=== PATIENT | female | born 1950 | race Caucasian/White ===

== ENCOUNTER 2017-02-17 17:27 | Emergency (ER) | payer MEDICARE, MEDICAID, SELFPAY ==
[2017-02-17 17:54] VITALS: BP 118/79; PULSE 77; RESP 16; TEMP 36.6; O2SAT 98; BMI 26.6
--- NOTE | 2017-02-17 18:01 | XR_ITS ---
XR wrist RT min 3V INDICATION: Pain following injury. FINDINGS: There is comminuted fracture involving the distal radius 1 cm proximal to the epiphyseal plate with mild impaction and dorsal angulation of the distal fracture fragment and minimal dorsal displacement of the distal fracture fragment x 3 mm. There is a longitudinal component of the fracture at the radial ulnar joint. There is an ulnar styloid process avulsion. IMPRESSION: Colles' fracture of the right wrist
--- NOTE | 2017-02-17 18:01 | XR_ITS ---
XR hand RT min 3V HISTORY: Pain following injury ITS.REASON: FELL INJURED RT HAND AND WRIST ORDERING PHYSICIAN: Ileana Carballo MD PATIENT AGE: 66 years COMPARISON: None FINDINGS: Colles' fracture of the wrist noted comminuted in nature. No hand fracture is evident. The distal phalanx of the third finger is missing. The distal phalanx of the fourth finger is very small and is fused at the DIP of the middle phalanx. IMPRESSION: 1. Colles' fracture of the wrist 2. No acute finding of the hand
--- NOTE | 2017-02-17 20:29 | HMH.EDGENADL ---
ED Disposition Clinical Impression: Wrist fracture, right Qualifiers: Encounter type: initial encounter Fracture type: closed Qualified Code(s): S62.101A - Fracture of unspecified carpal bone, right wrist, initial encounter for closed fracture Disposition: Home, Self-Care Condition on Discharge: Good Instructions: DI for Wrist Fracture Referrals: Wicho De La Cruz MD [Primary Care Provider] - - Critical Care Critical Care Time: No Attestation: On 02/17/17, the high probability of a clinically significant, sudden or life threatening deterioration of the following system(s) required my full and direct attention, intervention and personal management. The time I documented below is in addition to time spent performing reported procedures but includes the following listed in this critical care notation. Medical Decision Making Vital Signs: 02/17/17 17:54 Temperature 97.9 F Temperature Source Oral Pulse Rate [Left Brachial] 77 Respiratory Rate 16 Blood Pressure [Left Arm] 118/79 Blood Pressure Mean [Left Arm] 92 Blood Pressure Source [Left Arm] Automatic Cuff Blood Pressure Position [Left Arm] Sitting 02 Sat by Pulse Oximetry 98 Oxygen Delivery Method Room Air Orders (Tests/Meds): ED MEDICATIONS Discontinued Medications Generic Name Dose Route Start Last Admin Trade Name Freq PRN Reason Stop Dose Admin Ibuprofen 600 mg 02/17/17 18:31 Motrin 600mg Tablet PO 02/17/17 18:32 ONCE ONE Ibuprofen 800 mg 02/17/17 18:53 02/17/17 18:55 Motrin 400mg Tablet PO 02/17/17 18:54 800 mg ONCE ONE Administration ORDERS Category Date Time Status Wrist XR right minimum 3 views [XR wrist RT min 3V] Exams 02/17/17 18:01 Taken Stat XR hand RT min 3V Stat Exams 02/17/17 18:01 Taken - Radiology Data #1 Image(s): Hand Image Reviewed: Yes I reviewed the patient's radiology results Preliminary Findings: No Fracture Seen #2 Image(s): Wrist Image Reviewed: Yes I reviewed the patient's radiology results positive fx - Physician Consults Physician Consulted: jesús Time: 20:40 Reason -: Pt condition - Sukhdeep Inquiry Pt receiving controlled substance: No General Adult HPI - General Chief complaint: PAIN Stated complaint: a/o 02/17/2017- right wrist fell at home Time Seen by Provider: 02/17/17 20:29 Mode of Arrival: Ambulatory Source of Information: Patient, Relative, Medical Record Limitations: No Limitations Description of Symptoms (Recalled from ER Triage Doc. by RN): C/O RT WRIST PAIN AFTER FALLING AT HOME - History of Present Illness HPI narrative: pt with trip type fall at home with injury to rt wrist with deformity and swelling Onset (ago): hour(s) Location: right, upper extremity Severity: moderate Consistency: constant - Related Data Allergies Allergy/AdvReac Type Severity Reaction Status Date / Time promethazine Allergy Unknown WHOLE BODY Unverified 02/01/17 14:48 ACHES EGGS (FOOD) Allergy Unknown NA-NAUSEA Uncoded 02/01/17 14:48 MILK (FOOD) Allergy Unknown NA-NAUSEA Uncoded 02/01/17 14:48 [facility] History I have reviewed the patient's past medical history: Yes Medical History: Denies:: Diabetes Mellitus Type 1, Diabetes Mellitus Type 2 - *Social History Smoking Status: Never smoker Alcohol Intake: never - Psychiatric History Expresses thoughts of harming self/others: None Suicide Plan Description: No Plan - Constitutional Denies fever(s) - Eyes Denies change in vision - Cardiovascular Denies chest pain - Respiratory Denies cough - Gastrointestinal Denies abdominal pain - Integumentary/Breasts Denies rash - Neurologic Denies seizure-like activity Physical Exam - General General appearance: in no apparent distress - Head Head exam: atraumatic - Eye Eye exam: Present: PERRL, EOMI - ENT ENT exam: Present: mucous membranes dry - Neck Neck exam: Present: normal inspection, full ROM -
--- NOTE | 2017-02-17 20:36 | ED_ITS ---
ED Disposition Clinical Impression: Wrist fracture, right Qualifiers: Encounter type: initial encounter Fracture type: closed Qualified Code(s): S62.101A - Fracture of unspecified carpal bone, right wrist, initial encounter for closed fracture Disposition: Home, Self-Care Condition on Discharge: Good Instructions: DI for Wrist Fracture Referrals: Wicho De La Cruz MD [Primary Care Provider] - - Critical Care Critical Care Time: No Attestation: On 02/17/17, the high probability of a clinically significant, sudden or life threatening deterioration of the following system(s) required my full and direct attention, intervention and personal management. The time I documented below is in addition to time spent performing reported procedures but includes the following listed in this critical care notation. Medical Decision Making Vital Signs: 02/17/17 17:54 Temperature 97.9 F Temperature Source Oral Pulse Rate [Left Brachial] 77 Respiratory Rate 16 Blood Pressure [Left Arm] 118/79 Blood Pressure Mean [Left Arm] 92 Blood Pressure Source [Left Arm] Automatic Cuff Blood Pressure Position [Left Arm] Sitting 02 Sat by Pulse Oximetry 98 Oxygen Delivery Method Room Air Orders (Tests/Meds): ED MEDICATIONS Discontinued Medications Generic Name Dose Route Start Last Admin Trade Name Freq PRN Reason Stop Dose Admin Ibuprofen 600 mg 02/17/17 18:31 Motrin 600mg Tablet PO 02/17/17 18:32 ONCE ONE Ibuprofen 800 mg 02/17/17 18:53 02/17/17 18:55 Motrin 400mg Tablet PO 02/17/17 18:54 800 mg ONCE ONE Administration ORDERS Category Date Time Status Wrist XR right minimum 3 views [XR wrist RT min 3V] Exams 02/17/17 18:01 Taken Stat XR hand RT min 3V Stat Exams 02/17/17 18:01 Taken - Radiology Data #1 Image(s): Hand Image Reviewed: Yes I reviewed the patient's radiology results Preliminary Findings: No Fracture Seen #2 Image(s): Wrist Image Reviewed: Yes I reviewed the patient's radiology results positive fx - Physician Consults Physician Consulted: jesús Time: 20:40 Reason -: Pt condition - Sukhdeep Inquiry Pt receiving controlled substance: No General Adult HPI - General Chief complaint: PAIN Stated complaint: a/o 02/17/2017- right wrist fell at home Time Seen by Provider: 02/17/17 20:29 Mode of Arrival: Ambulatory Source of Information: Patient, Relative, Medical Record Limitations: No Limitations Description of Symptoms (Recalled from ER Triage Doc. by RN): C/O RT WRIST PAIN AFTER FALLING AT HOME - History of Present Illness HPI narrative: pt with trip type fall at home with injury to rt wrist with deformity and swelling Onset (ago): hour(s) Location: right, upper extremity Severity: moderate Consistency: constant - Related Data Allergies Allergy/AdvReac Type Severity Reaction Status Date / Time promethazine Allergy Unknown WHOLE BODY Unverified 02/01/17 14:48 ACHES EGGS (FOOD) Allergy Unknown NA-NAUSEA Uncoded 02/01/17 14:48 MILK (FOOD) Allergy Unknown NA-NAUSEA Uncoded 02/01/17 14:48 [facility] History I have reviewed the patient's past medical history: Yes Medical History: Denies:: Diabet
[2017-02-17 21:52] VITALS: BP 148/72; PULSE 74; RESP 14; O2SAT 98
== END 2017-02-17 21:30 | disposition home or self-care (01) ==
PROVIDERS: Emergency Provider Emergency Medicine; Family Provider Family Medicine; PCP Family Medicine
DX: S62.101A Fracture of unspecified carpal bone, right wrist, initial encounter for closed fracture (principal); W01.0XXA Fall on same level from slipping, tripping and stumbling without subsequent striking against object, initial encounter; Y92.019 Unspecified place in single-family (private) house as the place of occurrence of the external cause
CPT/HCPCS: 73110; 73130; 99282

== ENCOUNTER → 2017-02-18 12:29 | Outpatient (CLI) | payer MEDICARE, MEDICAID, SELFPAY ==
[2017-02-18 12:52] LABS: Basophils % 0.2 % (0.1-2.0); Eosinophils # 0.1 K/mm3 (0.0-0.4); Eosinophils % 0.9 % (0.1-12.0); Hematocrit 44.9 % (37.0-47.0); Lymphocytes # 1.5 K/mm3 (0.7-4.5); Lymphocytes % 18.1 K/mm3 (10-50); Mean Corpuscular HGB Conc 31.2 g/dL (31.8-35.4); Mean Corpuscular Hemoglobin 27.5 pg (27.0-31.2); Mean Corpuscular Volume 88.1 fl (81-99); Mean Platelet Volume 8.4 fl (7.4-10.4); Monocytes # 0.4 K/mm3 (0.1-1.0); Monocytes % 5.1 % (1.7-9.3); Neutrophils # 6.4 K/mm3 (1.8-7.8); Neutrophils % 75.6 % (37.0-80.0); Platelet Count 219 K/mm3 (142-424); White Blood Count 8.4 K/mm3 (4.8-10.8)
[2017-02-18 13:53] LABS: Anion Gap 13.2 mEq/L (5-15); Blood Urea Nitrogen 19 mg/dL (7-18); Carbon Dioxide 28 mmol/L (21.0-32.0); Chloride 103 mmol/L (98-107); Creatinine,Serum 0.85 mg/dL (0.55-1.02); Estimated Glomerular Filt Rate > 60 ml/min (>60); GFR (African American) > 60 ML/MIN (>60); Sodium 140 mmol/L (136-145)
[2017-02-18 14:10] LABS: Glucose 111 mg/dL (74-106); Potassium 4.2 mmoL/L (3.5-5.1)
== END ==
PROVIDERS: PCP Family Medicine; Visit Provider Orthopaedic Surgery
DX: S62.101A Fracture of unspecified carpal bone, right wrist, initial encounter for closed fracture (principal); Z01.818 Encounter for other preprocedural examination
CPT/HCPCS: 36415; 80048; 85025; 93005

== ENCOUNTER 2017-02-23 09:35 | Day surgery (SDC) | payer MEDICARE, MEDICAID, SELFPAY ==
[2017-02-18 15:07] VITALS: BMI 26.6
[2017-02-23] VITALS (18 sets, daily range): BP systolic 123–149; BP diastolic 41–88; PULSE 18–103; RESP 15–21; TEMP 36.1–36.8; O2SAT 94–99; BMI 26.6
--- NOTE | 2017-02-23 | FL_ITS ---
FL fluoroscopy <1hr CLINICAL INDICATION: ITS.REASON: POST REDUCTION ORDERING PHYSICIAN: Hima Greenwood MD PATIENT AGE: 66 years COMPARISON: 02/17/2017 FINDINGS: Multiple images submitted with the C-arm show closed reduction of the distal radial fracture. Final images show good alignment with no significant displacement with placement of a cast. IMPRESSION: Status post closed reduction distal radial fracture
--- NOTE | 2017-02-23 11:43 | HMH.ANESCL ---
[facility] Anesthesia Checklist - Patient Identification Patient Identification: Arm Band, Verbal (Name & ) - Structural Data Admitted From: Home Planned Operative Procedure/s: closed reduction right radius Consent for Planned Operative Procedure(s) Verified: Yes Verified Documents: Surgical Consent - NPO Status Verified Time NPO: 00:00 - Chart Verification Results Verified: CBC, BMP - Additional verifications Patient : No Anesthesia Reactions: No Cephalosporin Allergy: No - Cardiovascular Assessment Heart Sounds: S1 & S2 Pulse Strength: Strong Pulse Rhythm: Regular Peripheral Edema: No - Airway Assessment C-Spine Mobility Assessed: Yes TMJ Mobility Assessed: Yes Dentition: Good Dentition - Neurological Assessment Level of Consciousness: Awake, Alert, Appropriate Hx Seizures: Yes (50 yrs ago) Numbness or tingling in extremities: No - Genitourinary Assessment Urinary Incontinence: None - Anesthesia Plan Anesthesia Risk discussed: Yes Anesthesia Plan: Verified ASA Class: III Anesthesia Type: General [facility] Anesthesia HX I have reviewed the patient's past medical history: Yes Medical History: Reports:: Cancer, Gastroesophageal Reflux Disease, Seizures Denies:: Diabetes Mellitus Type 1, Diabetes Mellitus Type 2 Other Surgeries: Yes: Other (Prosethetic RT leg, LT hand at . ) Amputation: Yes Fractures: Yes *Family Hx:: Cancer, Diabetes, Anemia
--- NOTE | 2017-02-23 11:46 | P.PN_ITS ---
[facility] Anesthesia Checklist - Patient Identification Patient Identification: Arm Band, Verbal (Name & ) - Structural Data Admitted From: Home Planned Operative Procedure/s: closed reduction right radius Consent for Planned Operative Procedure(s) Verified: Yes Verified Documents: Surgical Consent - NPO Status Verified Time NPO: 00:00 - Chart Verification Results Verified: CBC, BMP - Additional verifications Patient : No Anesthesia Reactions: No Cephalosporin Allergy: No - Cardiovascular Assessment Heart Sounds: S1 & S2 Pulse Strength: Strong Pulse Rhythm: Regular Peripheral Edema: No - Airway Assessment C-Spine Mobility Assessed: Yes TMJ Mobility Assessed: Yes Dentition: Good Dentition - Neurological Assessment Level of Consciousness: Awake, Alert, Appropriate Hx Seizures: Yes (50 yrs ago) Numbness or tingling in extremities: No - Genitourinary Assessment Urinary Incontinence: None - Anesthesia Plan Anesthesia Risk discussed: Yes Anesthesia Plan: Verified ASA Class: III Anesthesia Type: General [facility] Anesthesia HX I have reviewed the patient's past medical history: Yes Medical History: Reports:: Cancer, Gastroesophageal Reflux Disease, Seizures Denies:: Diabetes Mellitus Type 1, Diabetes Mellitus Type 2 Other Surgeries: Yes: Other (Prosethetic RT leg, LT hand at . ) Amputation: Yes Fractures: Yes *Family Hx:: Cancer, Diabetes, Anemia
--- NOTE | 2017-02-23 12:52 | P.PN_ITS ---
[facility] Anesthesia Record Part I Intake, IV Amount: 450 Estimated blood loss (mL): 0 Urine output (mL): 0 Blood Products used (#): none Blood Pressure: 142/84 SaO2: 96 Pulse Rate: 18 Respiratory Rate: 18 Temperature: 97.0 F Patient is:: Drowsy, Nasal O2 Stable to PACU at:: 12:49
--- NOTE | 2017-02-23 12:52 | HMH.ANESII ---
[facility] Anesthesia Record Part II Discharge Time: 13:19 Destination: Surgical Day Care (OP Surgery) PACU nurse assessment reviewed?: Yes Patient Condition:: Good Anesthesia Complications:: None
--- NOTE | 2017-02-23 13:04 | XR_ITS ---
XR wrist RT min 3V HISTORY: Follow-up closed reduction ITS.REASON: post op ORDERING PHYSICIAN: Hima Greenwood MD PATIENT AGE: 66 years COMPARISON: 02/17/2017 FINDINGS: There is been interval reduction of the distal radial fracture. There is improved alignment with decreased displacement. There is good alignment of the distal fracture fragment with no significant displacement. A cast is in place. IMPRESSION: Status post closed reduction distal radial fracture with good alignment.
--- NOTE | 2017-02-23 13:42 | HMH.OPNOTE ---
Date of procedure: 02/23/17 Pre-op Diagnosis:: Extra-articular displaced right distal radius fracture Post-op diagnosis:: same Procedure performed:: Closed reduction and splint stabilization of right distal radius fracture Surgeon:: Hima Greenwood MD PHYSICAL THERAPIST:: Ba Garcia Anesthesia: MAC Estimated blood loss (mL): 0 Operative findings:: The patient was taken into the operating room placed in supine position, and an LMA placed. After appropriate level of anesthesia had been achieved, C arm fluoroscopy was used to confirm the fracture geometry of the right distal radius. We then applied traction to the base of the thumb metacarpal and applied volarly directed force on the distal fragment to reduce fracture. We checked with C arm and performed a bit more fine tuning as necessary to achieve its anatomic reduction is possible. Once this had been achieved, we placed the patient in a well padded double sugar tong splint and applied a mold to the splint and allowed it to dry. We then checked the reduction in both the AP and lateral views and found to be satisfactory. We then transported the patient to the postanesthesia care unit in good condition. No implants were utilized. Tourniquet time (min): 0 Pathology: none sent Condition: stable Disposition: PACU Complications:: No complications
--- NOTE | 2017-02-23 13:46 | P.OP_ITS ---
Date of procedure: 02/23/17 Pre-op Diagnosis:: Extra-articular displaced right distal radius fracture Post-op diagnosis:: same Procedure performed:: Closed reduction and splint stabilization of right distal radius fracture Surgeon:: Hima Greenwood MD CHANNEL ACCOUNT MANAGER:: Ba Garcia Anesthesia: MAC Estimated blood loss (mL): 0 Operative findings:: The patient was taken into the operating room placed in supine position, and an LMA placed. After appropriate level of anesthesia had been achieved, C arm fluoroscopy was used to confirm the fracture geometry of the right distal radius. We then applied traction to the base of the thumb metacarpal and applied volarly directed force on the distal fragment to reduce fracture. We checked with C arm and performed a bit more fine tuning as necessary to achieve its anatomic reduction is possible. Once this had been achieved, we placed the patient in a well padded double sugar tong splint and applied a mold to the splint and allowed it to dry. We then checked the reduction in both the AP and lateral views and found to be satisfactory. We then transported the patient to the postanesthesia care unit in good condition. No implants were utilized. Tourniquet time (min): 0 Pathology: none sent Condition: stable Disposition: PACU Complications:: No complications
--- NOTE | 2017-02-23 18:11 | SUR.PHASEI ---
PT RECEIVED MORPHINE MIXED IN NS THE ONLY VIALS WE HAD WERE 10 MG/ML. WHEN MIXED WITH NS 10 ML, THEY BECAME 1MG/1ML.
== END 2017-02-23 16:43 | disposition home or self-care (01) ==
PROVIDERS: Family Provider Family Medicine; PCP Family Medicine; Visit Provider Orthopaedic Surgery
DX: S62.101A Fracture of unspecified carpal bone, right wrist, initial encounter for closed fracture (principal)
CPT/HCPCS: 25606; 73100; 73110; 76000; J2405

== ENCOUNTER → 2017-03-04 08:42 | Outpatient (CLI) | payer MEDICARE, MEDICAID, SELFPAY ==
--- NOTE | 2017-03-04 08:46 | XR_ITS ---
XR wrist RT 2V HISTORY: ITS.REASON: post op closed reduction RT wrist ORDERING PHYSICIAN: Hima Greenwood MD PATIENT AGE: 66 years COMPARISON: 02/23/2017 FINDINGS: Study is obtained through a cast. Nondisplaced fracture of the distal radius once again noted in good alignment with her overall no significant change compared to the previous exam. Bony details obscured by the overlying cast. IMPRESSION: No change nondisplaced fracture distal radius with good alignment status post prior closed reduction
== END ==
PROVIDERS: PCP Family Medicine; Visit Provider Orthopaedic Surgery
DX: Z48.89 Encounter for other specified surgical aftercare (principal)
CPT/HCPCS: 73100

== ENCOUNTER → 2017-03-09 08:56 | Outpatient (CLI) | payer MEDICARE, MEDICAID, SELFPAY ==
--- NOTE | 2017-03-09 09:00 | XR_ITS ---
XR wrist RT 2V HISTORY: Follow-up fracture/closed reduction ITS.REASON: status post closed reduction RIGHT wrist ORDERING PHYSICIAN: Hima Greenwood MD PATIENT AGE: 66 years COMPARISON: 03/04/2017 FINDINGS: Study is obtained in a cast. Nondisplaced transverse fractures of the distal radius and ulna once again noted with developing callus formation. There is good alignment with no significant displacement. IMPRESSION: Healing distal radial and ulnar fractures nondisplaced
== END ==
PROVIDERS: PCP Family Medicine; Visit Provider Orthopaedic Surgery
DX: Z48.89 Encounter for other specified surgical aftercare (principal); S62.101D Fracture of unspecified carpal bone, right wrist, subsequent encounter for fracture with routine healing
CPT/HCPCS: 73100

== ENCOUNTER → 2017-04-05 13:30 | Outpatient (CLI) | payer MEDICARE, MEDICAID, SELFPAY ==
--- NOTE | 2017-04-05 13:33 | XR_ITS ---
XR wrist RT min 3V HISTORY: Follow-up fracture ITS.REASON: RT distal radius fracture ORDERING PHYSICIAN: Hima Greenwood MD PATIENT AGE: 66 years COMPARISON: 03/09/2017 FINDINGS: The cast has been removed. There is a healing transverse fracture involving the distal aspect of the radius at the metaphyseal region 9 mm proximal to the epiphyseal plate. There is developing sclerosis at fracture site consistent with healing. This fracture is nondisplaced with minimal dorsal angulation of the distal fracture fragment. There is an avulsion fracture of the tip of the ulnar styloid. IMPRESSION: Healing distal radial fracture with good alignment. No change avulsion fracture of the ulnar styloid
== END ==
PROVIDERS: PCP Family Medicine; Visit Provider Orthopaedic Surgery
DX: S62.101A Fracture of unspecified carpal bone, right wrist, initial encounter for closed fracture (principal)
CPT/HCPCS: 73110

== ENCOUNTER → 2017-05-03 09:11 | Outpatient (CLI) | payer MEDICARE, MEDICAID, SELFPAY ==
--- NOTE | 2017-05-03 09:22 | XR_ITS ---
XR wrist RT min 3V HISTORY: Follow-up fracture ITS.REASON: s/p RT distal radius fx ORDERING PHYSICIAN: Hima Greenwood MD PATIENT AGE: 66 years COMPARISON: 04/05/2017 FINDINGS: There is a healing fracture involving the distal aspect of the radius transverse in nature. A fracture line is less prominent in callus formation is noted. There is good alignment and no significant displacement. Ulnar styloid avulsion once again noted. IMPRESSION: Healing nondisplaced distal radial fracture
== END ==
PROVIDERS: PCP Family Medicine; Visit Provider Orthopaedic Surgery
DX: S62.101P Fracture of unspecified carpal bone, right wrist, subsequent encounter for fracture with malunion (principal)
CPT/HCPCS: 73110

== ENCOUNTER → 2017-06-13 10:14 | Outpatient (CLI) | payer MEDICARE, MEDICAID, SELFPAY ==
--- NOTE | 2017-06-13 10:28 | XR_ITS ---
XR shoulder RT min 2V Ordering Physician: Wicho De La Cruz MD Patient Age: 66 years: Female HISTORY: ITS.REASON: RT SHOULDER PAIN TECHNIQUE: 3 views right shoulder COMPARISON : Whole-body bone scan 2016 FINDINGS Right shoulder intact with no fracture nor dislocation. Mild AC joint hypertrophy and arthropathy long downward sloping acromion which could give breast impingement symptoms if present. Calcified rim right breast implant IMPRESSION: No fracture nor dislocation. Long Mild degenerative changes AC joint and likely glenohumeral joint. Downward sloping acromion gives rise to impingement symptoms
== END ==
PROVIDERS: PCP Family Medicine; Visit Provider Family Medicine
DX: M25.511 Pain in right shoulder (principal)
CPT/HCPCS: 73030

== ENCOUNTER → 2017-06-22 12:34 | Outpatient (POV) | payer MEDICARE, SELFPAY | PROVIDERS: Family Provider Family Medicine; PCP Family Medicine | DX: Z00.00 Encounter for general adult medical examination without abnormal findings (principal) ==

== ENCOUNTER → 2017-10-20 08:40 | Outpatient (POV) | payer MEDICARE, SELFPAY | PROVIDERS: Family Provider Family Medicine; PCP Family Medicine; Visit Provider Dermatology | DX: Z00.00 Encounter for general adult medical examination without abnormal findings (principal) ==

== ENCOUNTER → 2017-12-08 13:58 | Observation (INO) ==
--- NOTE | 2017-12-05 09:43 | History & Physical Report ---
*Admission Date: 12/05/17 <Angela Banuelos 12/05/17 09:50> *Chief complaint: Nausea and vomiting <Angela Banuelos 12/05/17 09:50> *History of present illness: Ms. Fields is a 67-year-old female with a history of congenital limb deformities, esophageal cancer, esophageal reflux, constipation, anemia, and vitamin D deficiency who presented to the office of [facility] today with intractable nausea and vomiting. She states the symptoms began on 12/02/2017 after eating fish and beans at a deli in a local grocery store. After eating these foods at noon she immediately began to vomit. The vomiting persisted and thus she presented to the office of [facility] on 12/03/2017. White blood cell count was elevated and she was started on Bactrim and Zofran. Symptoms persisted and she was unable to retain any medication. She again presented to the office of [facility] with extreme nausea, abdominal pain and continued vomiting. She was then admitted for further observation and treatment. Patient also complained of having headaches, backache, fever, and some post nasal drainage. She states her bowels have not moved in a couple of days. She denies hematochezia, hematemesis and melena. She has also experienced some midsternal chest discomfort and chest congestion. <Angela Banuelos 12/05/17 11:57> [facility] History Medical History: Reports:: Cancer, Gastroesophageal Reflux Disease(GERD), Seizures Denies:: Diabetes Mellitus Type 1, Diabetes Mellitus Type 2, Internal Pacemaker <Angela Banuelos 12/05/17 09:50> Other Medical History: Reports: Anemia. Denies: Blood Transfusion Reaction <Angela Banuelos 12/05/17 09:50> Comment: Congenital limb deformities <Angela Banuelos 12/05/17 09:50> Laterality Cases: Left: Other <Angela Banuelos 12/05/17 09:50> Other Surgeries: Yes: Cholecystectomy, Other (Prosethetic RT leg, LT hand at . ). No: Pacemaker <Angela Banuelos 12/05/17 09:50> Amputation: Yes <Angela Banuelos 12/05/17 09:50> Fractures: Yes <Angela Banuelos 12/05/17 09:50> - *Social History Smoking Status: Never smoker <Angela Banuelos Issac 12/05/17 09:50> Alcohol Intake: never <Angela Banuelos Issac 12/05/17 09:50> Occupational Status: retired <Angela Banuelos Issac 12/05/17 09:50> Housing: apartment <Angela Banuelos 12/05/17 09:50> Household Members: none <LakishaAngela - 12/05/17 09:50> *Family Hx:: Cancer, Diabetes, Anemia <Banuelos,Angela Issac 12/05/17 09:50> Review of Systems - Constitutional Comments: Appears not to feel well <Angela Banuelos 12/05/17 09:50> - ENT Comments: Dry tongue <Angela Banuelos 12/05/17 09:50> - *Cardiovascular Comments: Midsternal chest tenderness and discomfort <LakishaAngela - 12/05/17 09:50> - *Respiratory Denies cough, Denies shortness of breath <Angela Banuelos 12/05/17 09:50> - *Gastrointestinal Reports abdominal pain, Reports nausea, Reports vomiting, Denies change in bowel habits, Denies vomiting blood, Denies bright, red blood in stools <Angela Banuelos 12/05/17 09:50> - *Genitourinary Comments: Decreased urinary output <Banuelos,Angela - 12/05/17 09:50> Meds Home Medications Medication Instructions Recorded Confirmed Type celecoxib 200 mg capsule 200 mg PO DAILY 02/18/17 12/05/17 History duloxetine 30 mg capsule,delayed 30 mg PO DAILY 02/18/17 12/05/17 History release metoclopramide 10 mg tablet 10 mg PO QID 02/18/17 12/05/17 History kvfzazgj-gnjpyae-koqr-lutein tablet 1 mcg PO DAILY 02/18/17 12/05/17 History nystatin 100,000 unit/gram topical 1 applic TOPICAL BID 02/18/17 12/05/17 History cream omeprazole 40 mg capsule,delayed 40 mg PO DAILY 02/18/17 12/05/17 History release psyllium husk 3.4 gram/5.4 gram 1 tbsp PO DAILY 02/18/17 12/05/17 History oral powder sumatriptan 100 mg tablet 100 mg PO NEEDED PRN 02/18/17 12/05/17 History tizanidine 2 mg capsule 2 mg PO QID 02/18/17 12/05/17 History Loratadine [Claritin] 10 mg PO DAILY 12/05/17 12/05/17 History Ondansetron HCl [Ondansetron 4mg 4 mg PO Q8HP PRN 12/05/17 12/05/17 History Tablet] Polyethylene Glycol 3350 [Miralax 34 gm PO DAILY 12/05/17 12/05/17 History 17gm Packet] Sulfamethoxazole/Trimethoprim 1 tab PO BID 12/05/17 12/05/17 History [Sulfamethoxazole-Tmp Ds Tablet] <JonoWicho - 12/05/17 18:36> Allergies Allergy/AdvReac Type Severity Reaction Status Date / Time milk Allergy Mild Vomiting Verified 05/03/17 10:11 promethazine [From Phenergan] Allergy Mild whole body Verified 05/03/17 10:11 aches eggs Allergy Intermediate Vomiting Uncoded 05/03/17 10:11 <[place] CreekVanessaWicho - 12/05/17 18:36> Exam Vital signs and Labs for Last 24 Hours: Temp Pulse Resp BP Pulse Ox 98.3 F 80 18 101/47 L 98 12/05/17 15:21 12/05/17 15:21 12/05/17 15:21 12/05/17 15:21 12/05/17 15:21 Laboratory Results - last 24 hr 12/05/17 10:25: WBC 11.0 H, RBC 4.52, Hgb 12.7, Hct 39.4, MCV 87.2, MCH 28.2, MCHC 32.4, RDW 13.7, Plt Count 215, MPV 8.2, Neut % (Auto) 86.0 H, Lymph % (Auto) 10.2, [place] % (Auto) 3.5, Eos % (Auto) 0.1, Baso % (Auto) 0.2, Neut # (Auto) 9.5 H, Lymph # (Auto) 1.1, [place] # (Auto) 0.4, Eos # (Auto) 0.0, Baso # (Auto) 0.0, Total Counted 100, Neutrophils % (Manual) 95 H, Lymphocytes % (Manual) 4 L, Monocytes % (Manual) 1 L, Platelet Estimate Normal, RBC Morphology Normal 12/05/17 10:25: Sodium 137, Potassium 3.9, Chloride 99, Carbon Dioxide 24, Anion Gap 17.9 H, BUN 28 H, Creatinine 1.31 H, Estimated Creat Clear 47, Estimated GFR 40 L, Est GFR ( Amer) 49 L, Glucose 185 H, Calcium 9.1, Total Bilirubin 0.4, AST 19, ALT 21, Alkaline Phosphatase 83, Total Protein 8.0, Albumin 3.5, Globulin 4.5 H, Albumin/Globulin Ratio 0.8 L, Amylase 50, Lipase 143 12/05/17 13:04: Urine Color Yellow, Urine Appearance Clear, Urine pH 7.5, Ur Specific [place] 1.025, Urine Protein Trace, Urine Glucose (UA) Negative, Urine Ketones 3+, Urine Blood 2+, Urine Nitrate Negative, Urine Bilirubin Negative, Urine Urobilinogen 0.2, Ur Leukocyte Esterase Negative, Urine RBC 20-50, Urine WBC Occasional, Ur Squamous Epith Cells 3-5, Urine Bacteria Trace <Wicho De La Cruz - 12/05/17 18:36> I & O for Last 24 hours: Intake & Output 12/03/17 12/04/17 12/05/17 12/06/17 11:59 11:59 11:59 11:59 Intake Total 1887 / 1887 Output Total 500 / 500 Balance 1387 / 1387 Weight 157 lb 5 oz 157 lb 5 oz <Wicho De La Cruz 12/05/17 18:36> - Constitutional no acute distress <Angela Banuelos 12/05/17 09:50> Comments: Appears not to feel well <Angela Baunelos 12/05/17 09:50> - *Routine HEENT Exam Head: Present: normocephalic, atraumatic <Angela Banuelos 12/05/17 09:50> Eye: Present: PERRL. Absent: conjunctival icterus, scleral injection <Angela Banuelos 12/05/17 09:50> ENT: Present: mucous membranes dry <Angela Banuelos 12/05/17 09:50> - *Routine Neck Exam Absent: carotid bruit, lymphadenopathy, thyromegaly <Angela Banuelos 12/05/17 09:50> - *Routine Respiratory Exam Present: CTA bilaterally (Anteriorly and posteriorly) <Agnela Banuelos 12/05/17 09:50> - *Routine Cardiovascular Exam Present: RRR <Angela Banuelos 12/05/17 09:50> - *Routine Abdominal Exam Present: normoactive bowel sounds, tenderness, distended <Angela Banuelos 12/05/17 09:50> Comments: Diffusely tender <Angela Banuelos 12/05/17 09:50> - *Routine Extremities Exam Absent: edema <Angela Banuelos 12/05/17 09:50> Comments: Right leg prosthesis. No edema in left leg <Angela Banuelos 12/05/17 09:50> - *Routine Neurological Exam Present: alert, oriented X3 <Angela Banuelos 12/05/17 09:50> Assessment and Plan (1) Nausea and vomiting Current visit: Yes Status: Acute Category: Medical Code(s): R11.2 - Nausea with vomiting, unspecified (2) Abdominal pain Current visit: Yes Status: Acute Category: Medical Code(s): R10.9 - Unspecified abdominal pain (3) Renal insufficiency Current visit: Yes Status: Acute Category: Medical Code(s): N28.9 - Disorder of kidney and ureter, unspecified (4) GERD (gastroesophageal reflux disease) Current visit: Yes Status: Acute Category: Medical Code(s): K21.9 - Gastro-esophageal reflux disease without esophagitis (5) History of esophageal cancer Current visit: Yes Status: Chronic Category: Medical Code(s): Z85.01 - Personal history of malignant neoplasm of esophagus <Wicho De La Cruz - 12/05/17 18:36> (1) Nausea and vomiting Current visit: Yes Status: Acute Category: Medical Code(s): R11.2 - Nausea with vomiting, unspecified (2) Abdominal pain Current visit: Yes Status: Acute Category: Medical Code(s): R10.9 - Unspecified abdominal pain (3) Renal insufficiency Current visit: Yes Status: Acute Category: Medical Code(s): N28.9 - Disorder of kidney and ureter, unspecified (4) GERD (gastroesophageal reflux disease) Current visit: Yes Status: Acute Category: Medical Code(s): K21.9 - Gastro-esophageal reflux disease without esophagitis (5) History of esophageal cancer Current visit: Yes Status: Chronic Category: Medical Code(s): Z85.01 - Personal history of malignant neoplasm of esophagus <Angela Banuelos - 12/05/17 13:34> - Assessment and plan all Dx Assessment and Plan for all problems:: Saw patient today in the office and this afternoon at [facility], agree with above note. <Wicho De La Cruz - 12/05/17 18:36> IVF; GI rest; antiemetics; monitor labs; UA; IV PPI and will hold other home meds for now <Angela Banuelos - 12/05/17 13:38>
[2017-12-05 10:37] LABS: Basophils % 0.2 % (0.1-2.0); Eosinophils % 0.1 % (0.1-12.0); Hematocrit 39.4 % (37.0-47.0); Hemoglobin 12.7 g/dL (12.2-16.2); Lymphocytes # 1.1 K/mm3 (0.7-4.5); Lymphocytes % 10.2 K/mm3 (10-50); Mean Corpuscular HGB Conc 32.4 g/dL (31.8-35.4); Mean Corpuscular Hemoglobin 28.2 pg (27.0-31.2); Mean Corpuscular Volume 87.2 fl (81-99); Mean Platelet Volume 8.2 fl (7.4-10.4); Monocytes # 0.4 K/mm3 (0.1-1.0); Monocytes % 3.5 % (1.7-9.3); Neutrophils # 9.5 K/mm3 (1.8-7.8); Platelet Count 215 K/mm3 (142-424); Red Blood Count 4.52 M/mm3 (4.20-5.40); Red Cell Distribution Width 13.7 % (11.5-17.5)
[2017-12-05 10:50] LABS: Albumin Level 3.5 gm/dL (3.4-5.0); Albumin/Globulin Ratio 0.8 (1.1-1.8); Anion Gap 17.9 mEq/L (5-15); Bilirubin,Total 0.4 mg/dL (0.2-1.0); Calcium 9.1 mg/dL (8.5-10.1); Globulin 4.5 gm/dl (1.3-3.2); Potassium 3.9 mmoL/L (3.5-5.1)
[2017-12-05 11:41] LABS: Lymphocytes % 4 % (10-50); Monocytes % 1 % (2-9); Neutrophils % 95 % (42-76); Total Cells Counted 100
[2017-12-05 11:42] LABS: RBC Morphology Normal
[2017-12-05 13:17] LABS: Microscopic, Urine URINE MICROSCOPIC (MICROSCOPIC)
--- NOTE | 2017-12-05 14:08 | Pharmacy Consult Notes ---
[facility] Pharmacy VTE Monitoring - Patient Demographics Admission date: 12/05/17 Report Date: 12/05/17 Time: 14:08 Allergies/Adverse Reactions: Patient Allergies milk Allergy (Mild, Verified 05/03/17 10:11) Vomiting promethazine [From Phenergan] Allergy (Mild, Verified 05/03/17 10:11) whole body aches eggs Allergy (Intermediate, Uncoded 05/03/17 10:11) Vomiting Height: 1.65 m Weight: 71.356 kg Patient Problems: Current Active Problems Nausea and vomiting (Acute) Abdominal pain (Acute) GERD (gastroesophageal reflux disease) (Acute) History of esophageal cancer (Chronic) Renal insufficiency (Acute) - VTE Risk Labs: VTE Related Lab Results Hgb 12.7 g/dL (12.2-16.2) 12/05/17 10:25 Hct 39.4 % (37.0-47.0) 12/05/17 10:25 Plt Count 215 K/mm3 (142-424) 12/05/17 10:25 BUN 28 mg/dL (7-18) H 12/05/17 10:25 Creatinine 1.31 mg/dL (0.55-1.02) H 12/05/17 10:25 Estimated Creat Clear 47 mL/min (0-300) 12/05/17 10:25 VTE Score: 1 VTE Risk Level: Very Low Risk - Prophylaxis VTE Prophylaxis Ordered?: Yes Types of VTE Prophylaxis: TEDS Knee High Location of Applied Device: Bilateral Lower Extremeties
[2017-12-05 14:22] LABS: Appearance,Urine CLEAR (Clear); Bilirubin,Urine Negative (Negative); Blood, Urine 2+ (Negative); Color,Urine YELLOW (Yellow); Glucose,Urine (UA) Negative (Negative); Ketones,Urine 3+ (Negative); Leukocyte Esterase,Urine Negative (Negative); PH,Urine 7.5 (5.0-8.5); Protein,Urine TRACE (Negative); Specific Gravity, Urine 1.025 (1.005-1.030); Urobilinogen,Urine 0.2 EU/dl (0.2)
[2017-12-05 15:05] LABS: Bacteria,Urine Trace /lpf; RBC,Urine 20-50 #/hpf (0-3); WBC,Urine Occasional #/hpf (0-3)
[2017-12-06 07:32] LABS: Basophils % 0.2 % (0.1-2.0); Eosinophils % 0.4 % (0.1-12.0); Hematocrit 34.7 % (37.0-47.0); Lymphocytes # 1.4 K/mm3 (0.7-4.5); Lymphocytes % 18.7 K/mm3 (10-50); Mean Corpuscular HGB Conc 32.1 g/dL (31.8-35.4); Mean Corpuscular Hemoglobin 28.1 pg (27.0-31.2); Mean Corpuscular Volume 87.6 fl (81-99); Mean Platelet Volume 7.6 fl (7.4-10.4); Monocytes # 0.4 K/mm3 (0.1-1.0); Monocytes % 5.7 % (1.7-9.3); Neutrophils # 5.4 K/mm3 (1.8-7.8); Neutrophils % 74.9 % (37.0-80.0); Platelet Count 203 K/mm3 (142-424); Red Blood Count 3.97 M/mm3 (4.20-5.40); Red Cell Distribution Width 13.5 % (11.5-17.5); White Blood Count 7.2 K/mm3 (4.8-10.8)
[2017-12-06 07:44] LABS: Hemoglobin 11.2 g/dL (12.2-16.2)
--- NOTE | 2017-12-06 08:12 | Progress Note ---
<Angela Banuelos - Last Filed: 12/06/17 08:07> Internal Medicine - PN: Subj *Date: 12/06/17 *Time: 08:08 Interval history: Patient has retained popsicles. She did vomit this a.m. She is voiding well. She is out of bed to bedside commode. She continues to have some nausea and would like some Zofran at present. She would like to try some oatmeal and toast this morning. She denies shortness of breath. She could have some his chest discomfort and would like to have a scope to rule out another tumor. Renal function has improved and white blood cell is normal this morning Exam Vital signs and Labs for Last 24 Hours: Temp Pulse Resp BP Pulse Ox 98.6 F 72 16 104/51 L 98 12/06/17 04:00 12/06/17 04:00 12/06/17 04:00 12/06/17 04:00 12/06/17 08:00 Laboratory Results - last 24 hr 12/05/17 10:25: WBC 11.0 H, RBC 4.52, Hgb 12.7, Hct 39.4, MCV 87.2, MCH 28.2, MCHC 32.4, RDW 13.7, Plt Count 215, MPV 8.2, Neut % (Auto) 86.0 H, Lymph % (Auto) 10.2, [place] % (Auto) 3.5, Eos % (Auto) 0.1, Baso % (Auto) 0.2, Neut # (Auto) 9.5 H, Lymph # (Auto) 1.1, [place] # (Auto) 0.4, Eos # (Auto) 0.0, Baso # (Auto) 0.0, Total Counted 100, Neutrophils % (Manual) 95 H, Lymphocytes % (Manual) 4 L, Monocytes % (Manual) 1 L, Platelet Estimate Normal, RBC Morphology Normal 12/05/17 10:25: Sodium 137, Potassium 3.9, Chloride 99, Carbon Dioxide 24, Anion Gap 17.9 H, BUN 28 H, Creatinine 1.31 H, Estimated Creat Clear 47, Estimated GFR 40 L, Est GFR ( Amer) 49 L, Glucose 185 H, Calcium 9.1, Total Bilirubin 0.4, AST 19, ALT 21, Alkaline Phosphatase 83, Total Protein 8.0, Albumin 3.5, Globulin 4.5 H, Albumin/Globulin Ratio 0.8 L, Amylase 50, Lipase 143 12/05/17 13:04: Urine Color Yellow, Urine Appearance Clear, Urine pH 7.5, Ur Specific [place] 1.025, Urine Protein Trace, Urine Glucose (UA) Negative, Urine Ketones 3+, Urine Blood 2+, Urine Nitrate Negative, Urine Bilirubin Negative, Urine Urobilinogen 0.2, Ur Leukocyte Esterase Negative, Urine RBC 20-50, Urine WBC Occasional, Ur Squamous Epith Cells 3-5, Urine Bacteria Trace 12/06/17 06:28: WBC 7.2 D, RBC 3.97 L, Hgb 11.2 L D, Hct 34.7 L, MCV 87.6, MCH 28.1, MCHC 32.1, RDW 13.5, Plt Count 203, MPV 7.6, Neut % (Auto) 74.9, Lymph % (Auto) 18.7, [place] % (Auto) 5.7, Eos % (Auto) 0.4, Baso % (Auto) 0.2, Neut # (Auto) 5.4, Lymph # (Auto) 1.4, [place] # (Auto) 0.4, Eos # (Auto) 0.0, Baso # (Auto) 0.0 12/06/17 06:28: BUN 15 D, Creatinine 1.07 H, Estimated Creat Clear 57, Estimated GFR 51 L, Est GFR ( Amer) 62 D, Glucose 127 H D I & O for Last 24 hours: Intake & Output 12/03/17 12/04/17 12/05/17 12/06/17 11:59 11:59 11:59 11:59 Intake Total 2127 / 2127 Output Total 1100 / 1100 Balance 1027 / 1027 Weight 157 lb 5 oz 157 lb 5 oz - Constitutional no acute distress - *Routine Respiratory Exam Present: CTA bilaterally (Anteriorly and posteriorly) - *Routine Cardiovascular Exam Present: RRR - *Routine Abdominal Exam Present: soft, normoactive bowel sounds, tenderness (Diffusely mildly tender) - *Routine Extremities Exam Absent: edema, calf tenderness - *Routine Neurological Exam Present: alert, oriented X3 Assessment and Plan (1) Nausea and vomiting Current visit: Yes Status: Acute Category: Medical Code(s): R11.2 - Nausea with vomiting, unspecified (2) Abdominal pain Current visit: Yes Status: Acute Category: Medical Code(s): R10.9 - Unspecified abdominal pain (3) Renal insufficiency Current visit: Yes Status: Acute Category: Medical Code(s): N28.9 - Disorder of kidney and ureter, unspecified (4) GERD (gastroesophageal reflux disease) Current visit: Yes Status: Acute Category: Medical Code(s): K21.9 - Gastro-esophageal reflux disease without esophagitis (5) History of esophageal cancer Current visit: Yes Status: Chronic Category: Medical Code(s): Z85.01 - Personal history of malignant neoplasm of esophagus - Assessment and plan all Dx Assessment and Plan for all problems:: Continue current care and will advance diet. <Wicho De La Cruz - Last Filed: 12/06/17 08:32> Exam Vital signs and Labs for Last 24 Hours: Temp Pulse Resp BP Pulse Ox 98.6 F 72 16 104/51 L 98 12/06/17 04:00 12/06/17 04:00 12/06/17 04:00 12/06/17 04:00 12/06/17 08:00 Laboratory Results - last 24 hr 12/05/17 10:25: WBC 11.0 H, RBC 4.52, Hgb 12.7, Hct 39.4, MCV 87.2, MCH 28.2, MCHC 32.4, RDW 13.7, Plt Count 215, MPV 8.2, Neut % (Auto) 86.0 H, Lymph % (Auto) 10.2, [place] % (Auto) 3.5, Eos % (Auto) 0.1, Baso % (Auto) 0.2, Neut # (Auto) 9.5 H, Lymph # (Auto) 1.1, [place] # (Auto) 0.4, Eos # (Auto) 0.0, Baso # (Auto) 0.0, Total Counted 100, Neutrophils % (Manual) 95 H, Lymphocytes % (Manual) 4 L, Monocytes % (Manual) 1 L, Platelet Estimate Normal, RBC Morphology Normal 12/05/17 10:25: Sodium 137, Potassium 3.9, Chloride 99, Carbon Dioxide 24, Anion Gap 17.9 H, BUN 28 H, Creatinine 1.31 H, Estimated Creat Clear 47, Estimated GFR 40 L, Est GFR ( Amer) 49 L, Glucose 185 H, Calcium 9.1, Total Bilirubin 0.4, AST 19, ALT 21, Alkaline Phosphatase 83, Total Protein 8.0, Albumin 3.5, Globulin 4.5 H, Albumin/Globulin Ratio 0.8 L, Amylase 50, Lipase 143 12/05/17 13:04: Urine Color Yellow, Urine Appearance Clear, Urine pH 7.5, Ur Specific [place] 1.025, Urine Protein Trace, Urine Glucose (UA) Negative, Urine Ketones 3+, Urine Blood 2+, Urine Nitrate Negative, Urine Bilirubin Negative, Urine Urobilinogen 0.2, Ur Leukocyte Esterase Negative, Urine RBC 20-50, Urine WBC Occasional, Ur Squamous Epith Cells 3-5, Urine Bacteria Trace 12/06/17 06:28: WBC 7.2 D, RBC 3.97 L, Hgb 11.2 L D, Hct 34.7 L, MCV 87.6, MCH 28.1, MCHC 32.1, RDW 13.5, Plt Count 203, MPV 7.6, Neut % (Auto) 74.9, Lymph % (Auto) 18.7, [place] % (Auto) 5.7, Eos % (Auto) 0.4, Baso % (Auto) 0.2, Neut # (Auto) 5.4, Lymph # (Auto) 1.4, [place] # (Auto) 0.4, Eos # (Auto) 0.0, Baso # (Auto) 0.0 12/06/17 06:28: Sodium 140, Potassium 3.8, Chloride 105, Carbon Dioxide 29 D, Anion Gap 9.8, BUN 15 D, Creatinine 1.07 H, Estimated Creat Clear 57, Estimated GFR 51 L, Est GFR ( Amer) 62 D, Glucose 127 H D, Calcium 8.1 L D I & O for Last 24 hours: Intake & Output 12/03/17 12/04/17 12/05/17 12/06/17 11:59 11:59 11:59 11:59 Intake Total 2126 / 2126 Output Total 1100 / 1100 Balance 1027 / 1027 Weight 157 lb 5 oz 157 lb 5 oz Assessment and Plan (1) Nausea and vomiting Current visit: Yes Status: Acute Category: Medical Code(s): R11.2 - Nausea with vomiting, unspecified (2) Abdominal pain Current visit: Yes Status: Acute Category: Medical Code(s): R10.9 - Unspecified abdominal pain (3) Renal insufficiency Current visit: Yes Status: Acute Category: Medical Code(s): N28.9 - Disorder of kidney and ureter, unspecified (4) GERD (gastroesophageal reflux disease) Current visit: Yes Status: Acute Category: Medical Code(s): K21.9 - Gastro-esophageal reflux disease without esophagitis (5) History of esophageal cancer Current visit: Yes Status: Chronic Category: Medical Code(s): Z85.01 - Personal history of malignant neoplasm of esophagus - Assessment and plan all Dx Assessment and Plan for all problems:: Saw patient, agree with above note.
[2017-12-06 08:14] LABS: Potassium 3.8 mmoL/L (3.5-5.1)
[2017-12-06 08:16] LABS: Anion Gap 9.8 mEq/L (5-15)
[2017-12-06 08:24] LABS: Calcium 8.1 mg/dL (8.5-10.1)
--- NOTE | 2017-12-07 08:24 | Progress Note ---
<Christa Blount - Last Filed: 12/07/17 08:21> Internal Medicine - PN: Subj *Date: 12/07/17 *Time: 08:21 Interval history: Patient states she is still not feeling well this morning. She only vomited once throughout the night but is still very nauseated and continues to have diffuse abdominal pain. She has not had a bowel movement since last Tuesday, however she states she cannot tolerate any stool softeners or MiraLAX d/t her nausea and this is usually what she requires to go to the bathroom. She ate a few bites of oatmeal this morning but is unable to eat any more food or drink any liquids. Exam Vital signs and Labs for Last 24 Hours: Temp Pulse Resp BP Pulse Ox 98.2 F 76 16 127/65 95 12/07/17 08:00 12/07/17 08:00 12/07/17 08:00 12/07/17 08:00 12/07/17 08:00 Laboratory Results - last 24 hr 12/06/17 06:28: Calcium 8.1 L D I & O for Last 24 hours: Intake & Output 12/04/17 12/05/17 12/06/17 12/07/17 11:59 11:59 11:59 11:59 Intake Total 2127 / 2127 3878 / 3878 Output Total 1500 / 1500 1250 / 1250 Balance 627 / 627 2628 / 2628 Weight 157 lb 5 oz 157 lb 5 oz - Constitutional no acute distress - *Routine Respiratory Exam Present: CTA bilaterally - *Routine Cardiovascular Exam Present: RRR - *Routine Abdominal Exam Present: soft, normoactive bowel sounds, tenderness (diffuse) - *Routine Extremities Exam Absent: cyanosis, clubbing, edema Assessment and Plan (1) Nausea and vomiting Current visit: Yes Status: Acute Category: Medical Code(s): R11.2 - Nausea with vomiting, unspecified (2) Abdominal pain Current visit: Yes Status: Acute Category: Medical Code(s): R10.9 - Unspecified abdominal pain (3) Renal insufficiency Current visit: Yes Status: Acute Category: Medical Code(s): N28.9 - Disorder of kidney and ureter, unspecified (4) GERD (gastroesophageal reflux disease) Current visit: Yes Status: Acute Category: Medical Code(s): K21.9 - Ingrid ro-esophageal reflux disease without esophagitis (5) History of esophageal cancer Current visit: Yes Status: Chronic Category: Medical Code(s): Z85.01 - Personal history of malignant neoplasm of esophagus - Assessment and plan all Dx Assessment and Plan for all problems:: Will continue antibiotics and anti-medics. <Galena,Wicho - Last Filed: 12/07/17 08:59> Exam Vital signs and Labs for Last 24 Hours: Temp Pulse Resp BP Pulse Ox 98.2 F 76 16 127/65 95 12/07/17 08:00 12/07/17 08:00 12/07/17 08:00 12/07/17 08:00 12/07/17 08:00 I & O for Last 24 hours: Intake & Output 12/04/17 12/05/17 12/06/17 12/07/17 11:59 11:59 11:59 11:59 Intake Total 2127 / 2127 3878 / 3878 Output Total 1500 / 1500 1250 / 1250 Balance 627 / 627 2628 / 2628 Weight 157 lb 5 oz 157 lb 5 oz Assessment and Plan (1) Nausea and vomiting Current visit: Yes Status: Acute Category: Medical Code(s): R11.2 - Nausea with vomiting, unspecified (2) Abdominal pain Current visit: Yes Status: Acute Category: Medical Code(s): R10.9 - U nspecified abdominal pain (3) Renal insufficiency Current visit: Yes Status: Acute Category: Medical Code(s): N28.9 - Disorder of kidney and ureter, unspecified (4) GERD (gastroesophageal reflux disease) Current visit: Yes Status: Acute Category: Medical Code(s): K21.9 - Gastro-esophageal reflux disease without esophagitis (5) History of esophageal cancer Current visit: Yes Status: Chronic Category: Medical Code(s): Z85.01 - Pe rsonal history of malignant neoplasm of esophagus - Assessment and plan all Dx Assessment and Plan for all problems:: Saw patient, agree with above note.
--- NOTE | 2017-12-08 08:26 | Progress Note ---
<Christa Blount - Last Filed: 12/08/17 08:23> Internal Medicine - PN: Subj *Date: 12/08/17 *Time: 08:23 Interval history: Patient states she had a rough night. She states her IV came out and they were unable to get another IV started. She was given sublingual Zofran and this helped her nausea. She is still unable to drink except to take her medication. She has been able to eat some toast and oatmeal this morning. She has had no further vomiting and her abdominal pain is slightly improving. Exam Vital signs and Labs for Last 24 Hours: Temp Pulse Resp BP Pulse Ox 98.4 F 99 H 16 129/80 96 12/08/17 07:59 12/08/17 07:59 12/08/17 07:59 12/08/17 07:59 12/08/17 07:59 I & O for Last 24 hours: Intake & Output 12/05/17 12/06/17 12/07/17 12/08/17 11:59 11:59 11:59 11:59 Intake Total 2127 / 2127 3998 / 3998 1556 / 1556 Output Total 1500 / 1500 1550 / 1550 650 / 650 Balance 627 / 627 2448 / 2448 906 / 906 Weight 157 lb 5 oz 157 lb 5 oz 157 lb 5.009 oz - Constitutional no acute distress - *Routine Respiratory Exam Present: CTA bilaterally - *Routine Cardiovascular Exam Present: RRR - *Routine Abdominal Exam Present: soft, normoactive bowel sounds, tenderness (diffuse but improved) - *Routine Extremities Exam Absent: cyanosis, clubbing, edema Assessment and Plan (1) Nausea and vomiting Current visit: Yes Status: Acute Category: Medical Code(s): R11.2 - Nausea with vomiting, unspecified (2) Abdominal pain Current visit: Yes Status: Acute Category: Medical Code(s): R10.9 - Unspecified abdominal pain (3) Renal insufficiency Current visit: Yes Status: Acute Category: Medical Code(s): N28.9 - Disorder of kidney and ureter, unspecified (4) GERD (gastroesophageal reflux disease) Current visit: Yes Status: Acute Category: Medical Code(s): K21.9 - Gastro-esophageal reflux disease without esophagitis (5) History of esophageal cancer Current visit: Yes Status: Chronic Category: Medical Code(s): Z85.01 - Personal history of malignant neoplasm of esophagus - Assessment and plan all Dx Assessment and Plan for all problems:: Dr. Rangel ordered a deep line placement during the night, however the patient wants to wait and see Dr. De La Cruz before having this placed. She states he mentioned she may go home and if she goes home, she does not want this line placed. Will continue oral Zofran and discuss further care with Dr. De La Cruz. <Wicho De La Cruz - Last Filed: 12/08/17 08:48> Exam Vital signs and Labs for Last 24 Hours: Temp Pulse Resp BP Pulse Ox 98.4 F 99 H 16 129/80 96 12/08/17 07:59 12/08/17 07:59 12/08/17 07:59 12/08/17 07:59 12/08/17 07:59 I & O for Last 24 hours: Intake & Output 12/05/17 12/06/17 12/07/17 12/08/17 11:59 11:59 11:59 11:59 Intake Total 2127 / 2127 3998 / 3998 1556 / 1556 Output Total 1500 / 1500 1550 / 1550 650 / 650 Balance 627 / 627 2448 / 2448 906 / 906 Weight 157 lb 5 oz 157 lb 5 oz 157 lb 5.009 oz Assessment and Plan (1) Nausea and vomiting Current visit: Yes Status: Acute Category: Medical Code(s): R11.2 - Nausea with vomiting, unspecified (2) Abdominal pain Current visit: Yes Status: Acute Category: Medical Code(s): R10.9 - Unspecified abdominal pain (3) Renal insufficiency Current visit: Yes Status: Acute Category: Medical Code(s): N28.9 - Disorder of kidney and ureter, unspecified (4) GERD (gastroesophageal reflux disease) Current visit: Yes Status: Acute Category: Medical Code(s): K21.9 - Gastro-esophageal reflux disease without esophagitis (5) History of esophageal cancer Current visit: Yes Status: Chronic Category: Medical Code(s): Z85.01 - Personal history of malignant neoplasm of esophagus - Assessment and plan all Dx Assessment and Plan for all problems:: Saw patient, she will probably be discharged later today, will not place IV at this time.
--- NOTE | 2017-12-09 16:42 | Discharge Summary ---
General - General Admission date:: 12/05/17 Discharge date: 12/08/17 HPI HPI: Ms. Fields is a 67-year-old female with a history of congenital limb deformities, esophageal cancer, esophageal reflux, constipation, anemia, and vitamin D deficiency who presented to the office of [facility] today with intractable nausea and vomiting. She states the symptoms began on 12/02/2017 after eating fish and beans at a deli in a local grocery store. After eating these foods at noon she immediately began to vomit. The vomiting persisted and thus she presented to the office of [facility] on 12/03/2017. White blood cell count was elevated and she was started on Bactrim and Zofran. Symptoms persisted and she was unable to retain any medication. She again presented to the office of [facility] with extreme nausea, abdominal pain and continued vomiting. She was then admitted for further observation and treatment. Patient also complained of having headaches, backache, fever, and some post nasal drainage. She states her bowels have not moved in a couple of days. She denies hematochezia, hematemesis and melena. She has also experienced some midsternal chest discomfort and chest congestion. Hospital Course Hospital Course: The patient was started on IVF, GI rest, rocephin, and antiemetics. She was also started on a PPI. Her renal function improved and her white blood cell count normalized. Her vomiting resolved but she remained nauseated. She was able to eat a few bites of toast and oatmeal and could take sips of water. She was stable to be discharged home on ceftin and zofran. She will f/u in the office of [facility]. Objective Vital signs: Temp Pulse Resp BP Pulse Ox 98.4 F 99 H 16 129/80 97 12/08/17 07:59 12/08/17 07:59 12/08/17 07:59 12/08/17 07:59 12/08/17 08:00 Narrative: - Constitutional no acute distress Comments: Appears not to feel well - *Routine HEENT Exam Head: Present: normocephalic, atraumatic Eye: Present: PERRL. Absent: conjunctival icterus, scleral injection ENT: Present: mucous membranes dry - *Routine Neck Exam Absent: carotid bruit, lymphadenopathy, thyromegaly - *Routine Respiratory Exam Present: CTA bilaterally (Anteriorly and posteriorly) - *Routine Cardiovascular Exam Present: RRR - *Routine Abdominal Exam Present: normoactive bowel sounds, tenderness, distended Comments: Diffusely tender - *Routine Extremities Exam Absent: edema Comments: Right leg prosthesis. No edema in left leg - *Routine Neurological Exam Present: alert, oriented X3 DS: Diagnosis - Discharge Diagnosis (1) Nausea and vomiting Status: Acute (2) Abdominal pain Status: Acute (3) Renal insufficiency Status: Acute (4) GERD (gastroesophageal reflux disease) Status: Acute (5) History of esophageal cancer Status: Chronic Discharge Plan - Patient Discharge Instructions ACTIVITY: Continue current activity DIET: continue same diet Patient Instructions: DI for Abdominal Pain-Adult, Nausea and Vomiting-Adult - Follow up Plan Follow up with: Wicho De La Cruz MD [Primary Care Provider] - 12/12/17 Disposition: Home, Self-Custodial Medications: Home Medications Medication Instructions Recorded Confirmed Type celecoxib 200 mg capsule 200 mg PO DAILY 02/18/17 12/05/17 History duloxetine 30 mg capsule,delayed 30 mg PO DAILY 02/18/17 12/05/17 History release metoclopramide 10 mg tablet 10 mg PO QID 02/18/17 12/05/17 History kszzmiwy-lomzbmb-fjyq-lutein tablet 1 mcg PO DAILY 02/18/17 12/05/17 History nystatin 100,000 unit/gram topical 1 applic TOPICAL BID 02/18/17 12/05/17 History cream omeprazole 40 mg capsule,delayed 40 mg PO DAILY 02/18/17 12/05/17 History release psyllium husk 3.4 gram/5.4 gram 1 tbsp PO DAILY 02/18/17 12/05/17 History oral powder sumatriptan 100 mg tablet 100 mg PO NEEDED PRN 02/18/17 12/05/17 History tizanidine 2 mg capsule 2 mg PO QID 02/18/17 12/05/17 History Loratadine [Claritin] 10 mg PO DAILY 12/05/17 12/05/17 History Polyethylene Glycol 3350 [Miralax 34 gm PO DAILY 12/05/17 12/05/17 History 17gm Packet] Prescriptions/Medication Reconciliation: New cefUROXime axetil [Ceftin 250mg Tablet] 250 mg PO BID #14 tablet Ondansetron [Zofran 8mg ODT] 8 mg PO TIDP PRN #20 tab PRN Reason: Nausea And Vomiting Continue celecoxib 200 mg capsule 200 mg PO DAILY nystatin 100,000 unit/gram topical cream 1 applic TOPICAL BID bkigkite-syohjnt-pian-lutein tablet 1 mcg PO DAILY psyllium husk 3.4 gram/5.4 gram oral powder 1 tbsp PO DAILY sumatriptan 100 mg tablet 100 mg PO NEEDED PRN PRN Reason: MIGRAINES tizanidine 2 mg capsule 2 mg PO QID duloxetine 30 mg capsule,delayed release 30 mg PO DAILY metoclopramide 10 mg tablet 10 mg PO QID omeprazole 40 mg capsule,delayed release 40 mg PO DAILY Polyethylene Glycol 3350 [Miralax 17gm Packet] 34 gm PO DAILY Loratadine [Claritin] 10 mg PO DAILY Discontinued Ondansetron HCl [Ondansetron 4mg Tablet] 4 mg PO Q8HP PRN PRN Reason: NAUSEA/VOMITING Sulfamethoxazole/Trimethoprim [Sulfamethoxazole-Tmp Ds Tablet] 1 tab PO BID
== END | disposition home or self-care (01) ==
LOC: 2ND
PROVIDERS: ADMIT Family Medicine; ATTEND Family Medicine
CPT/HCPCS: 36415; 80048; 80053; 81001; 82150; 83690; 85007; 85025; G0378; J2405

== ENCOUNTER 2017-12-12 09:50 | Outpatient (CLI) | payer MEDICARE, MEDICAID, SELFPAY ==
--- NOTE | 2017-12-12 10:48 | XR_ITS ---
XR abdomen min 2V Ordering Physician: Wicho De La Cruz MD Patient Age: 67 years: Female HISTORY: ITS.REASON: ABD PAIN TECHNIQUE: Flat and upright views abdomen COMPARISON : FINDINGS No acute findings abdomen. No free air beneath the diaphragm. Nonspecific bowel gas pattern Densely calcified rim of right breast implant noted, accounts for the 10 cm diameter area project over the right hemidiaphragm. This was seen previous CT chest daily 2016. Clips at the diaphragmatic hiatus region previous procedure here. There is no bowel dilatation or obstruction. Minimal stool is seen throughout the colon. No organomegaly. Phleboliths at the pelvic basin. Bilateral tubal ligation clips. Renal calculi evident. Lung bases clear. IMPRESSION No acute findings in the abdomen or pelvis. Nonspecific bowel gas pattern. Incidental observations in text
[2017-12-12 10:49] LABS: Basophils % 0.2 % (0.1-2.0); Eosinophils % 0.3 % (0.1-12.0); Hematocrit 35.8 % (37.0-47.0); Hemoglobin 11.8 g/dL (12.2-16.2); Lymphocytes # 1.2 K/mm3 (0.7-4.5); Lymphocytes % 8.2 K/mm3 (10-50); Mean Corpuscular HGB Conc 33.1 g/dL (31.8-35.4); Mean Corpuscular Hemoglobin 28.6 pg (27.0-31.2); Mean Corpuscular Volume 86.7 fl (81-99); Mean Platelet Volume 7.3 fl (7.4-10.4); Monocytes # 0.6 K/mm3 (0.1-1.0); Neutrophils # 12.3 K/mm3 (1.8-7.8); Neutrophils % 87.4 % (37.0-80.0); Platelet Count 200 K/mm3 (142-424); Red Blood Count 4.13 M/mm3 (4.20-5.40); Red Cell Distribution Width 13.4 % (11.5-17.5); White Blood Count 14.1 K/mm3 (4.8-10.8)
[2017-12-12 10:56] LABS: MANUAL DIFFERENTIAL MANUAL DIFFERENTIAL (MANUAL DIFF)
[2017-12-12 12:13] LABS: Alanine Aminotransferase 25 U/L (12-78); Albumin Level 2.9 gm/dL (3.4-5.0); Albumin/Globulin Ratio 0.7 (1.1-1.8); Alkaline Phosphatase 86 U/L (46-116); Amylase 46 U/L (25-125); Anion Gap 12.6 mEq/L (5-15); Aspartate Amino Transferase 19 U/L (15-37); Bilirubin,Total 0.5 mg/dL (0.2-1.0); Blood Urea Nitrogen 29 mg/dL (7-18); Calcium 8.4 mg/dL (8.5-10.1); Carbon Dioxide 28 mmol/L (21.0-32.0); Chloride 98 mmol/L (98-107); Creatinine,Serum 1.71 mg/dL (0.55-1.02); Estimated Glomerular Filt Rate 30 ml/min (>60); GFR (African American) 36 ML/MIN (>60); Glucose 120 mg/dL (74-106); Lipase 190 u/L (73-393); Potassium 3.6 mmoL/L (3.5-5.1); Sodium 135 mmol/L (136-145); Total Protein,Serum 6.9 gm/dL (6.4-8.2)
[2017-12-12 14:25] LABS: Lymphocytes % 7 % (10-50); Monocytes % 5 % (2-9); Neutrophils % 86 % (42-76); Platelet Estimate Normal; Total Cells Counted 100
[2017-12-12 15:21] LABS: Appearance,Urine CLEAR (Clear); Bilirubin,Urine Negative (Negative); Blood, Urine 2+ (Negative); Color,Urine YELLOW (Yellow); Glucose,Urine (UA) Negative (Negative); Ketones,Urine 1+ (Negative); Leukocyte Esterase,Urine Negative (Negative); Nitrate,Urine Negative (Negative); Protein,Urine 1+ (Negative); Specific Gravity, Urine 1.025 (1.005-1.030); Urobilinogen,Urine 0.2 EU/dl (0.2)
[2017-12-12 15:58] VITALS: BP 129/65; PULSE 97; RESP 20; TEMP 36.4; O2SAT 100
[2017-12-12 16:28] VITALS: BP 127/65; PULSE 100; RESP 20; O2SAT 99
[2017-12-12 16:56] LABS: Bacteria,Urine Trace /lpf
[2017-12-12 16:58] VITALS: BP 124/62; PULSE 94; RESP 20; O2SAT 100
[2017-12-12 17:28] VITALS: BP 126/69; PULSE 98; RESP 20; O2SAT 98
[2017-12-12 18:00] VITALS: BP 117/65; PULSE 104; RESP 18; O2SAT 99
[2017-12-12 20:38] LABS: Microscopic, Urine URINE MICROSCOPIC (MICROSCOPIC)
== END 2017-12-12 18:11 | disposition home or self-care (01) ==
PROVIDERS: PCP Family Medicine; Visit Provider Family Medicine
DX: R10.84 Generalized abdominal pain (principal); N28.9 Disorder of kidney and ureter, unspecified; D72.829 Elevated white blood cell count, unspecified
CPT/HCPCS: 36415; 74019; 80053; 81001; 82150; 83690; 85007; 85025; 96360; 96361; 96367; 96374; J1956; J2405

== ENCOUNTER 2017-12-15 11:29 | Outpatient (CLI) | payer MEDICARE, MEDICAID, SELFPAY ==
[2017-12-15 11:37] VITALS: BMI 25.9
[2017-12-15 13:07] LABS: Basophils % 0.5 % (0.1-2.0); Eosinophils # 0.1 K/mm3 (0.0-0.4); Eosinophils % 0.7 % (0.1-12.0); Hematocrit 35.4 % (37.0-47.0); Hemoglobin 11.4 g/dL (12.2-16.2); Lymphocytes # 1.3 K/mm3 (0.7-4.5); Lymphocytes % 17.9 K/mm3 (10-50); Mean Corpuscular HGB Conc 32.2 g/dL (31.8-35.4); Mean Corpuscular Hemoglobin 27.5 pg (27.0-31.2); Mean Corpuscular Volume 85.3 fl (81-99); Monocytes # 0.4 K/mm3 (0.1-1.0); Monocytes % 5.6 % (1.7-9.3); Neutrophils # 5.5 K/mm3 (1.8-7.8); Neutrophils % 75.2 % (37.0-80.0); Platelet Count 272 K/mm3 (142-424); Red Blood Count 4.14 M/mm3 (4.20-5.40); Red Cell Distribution Width 13.4 % (11.5-17.5); White Blood Count 7.3 K/mm3 (4.8-10.8)
[2017-12-15 13:08] VITALS: BP 108/57; PULSE 90; RESP 18; TEMP 36.4; O2SAT 97
[2017-12-15 13:16] LABS: Anion Gap 12.6 mEq/L (5-15); Blood Urea Nitrogen 15 mg/dL (7-18); Calcium 9.1 mg/dL (8.5-10.1); Carbon Dioxide 29 mmol/L (21.0-32.0); Chloride 100 mmol/L (98-107); Creatinine Clearance Estimated 61 mL/min (0-300); Creatinine,Serum 0.88 mg/dL (0.55-1.02); Estimated Glomerular Filt Rate 64 ml/min (>60); GFR (African American) 78 ML/MIN (>60); Glucose 97 mg/dL (74-106); Potassium 3.6 mmoL/L (3.5-5.1); Sodium 138 mmol/L (136-145)
[2017-12-15 13:47] VITALS: BP 103/63; PULSE 68; RESP 16; TEMP 36.5; O2SAT 97
[2017-12-15 14:27] VITALS: BP 94/59; PULSE 62; RESP 18
[2017-12-15 15:49] VITALS: BP 102/64; PULSE 89; RESP 18; TEMP 36.6; O2SAT 98
== END 2017-12-15 15:50 | disposition home or self-care (01) ==
LOC: INF 11:31
PROVIDERS: PCP Family Medicine; Visit Provider Family Medicine
DX: R34 Anuria and oliguria (principal); R10.9 Unspecified abdominal pain; R63.8 Other symptoms and signs concerning food and fluid intake
CPT/HCPCS: 36415; 80048; 85025; 96360; 96361

== ENCOUNTER → 2018-05-10 13:25 | Outpatient (POV) | payer MEDICARE, SELFPAY | DX: Z00.00 Encounter for general adult medical examination without abnormal findings (principal) ==

== ENCOUNTER → 2018-11-01 12:13 | Outpatient (POV) | payer MEDICARE, SELFPAY | DX: Z00.00 Encounter for general adult medical examination without abnormal findings (principal) ==

== ENCOUNTER → 2019-10-22 08:47 | Outpatient (CLI) | payer MEDICARE, OTHER, SELFPAY ==
[2019-10-22 12:11] LABS: Coronavirus 19 IgG Antibody Negative (Negative); Coronavirus 19 IgM Antibody Negative (Negative)
== END ==
PROVIDERS: Visit Provider Surgery
DX: Z03.818 Encounter for observation for suspected exposure to other biological agents ruled out (principal)
CPT/HCPCS: 36415; 86328

== ENCOUNTER 2019-10-23 08:02 | Day surgery (SDC) | payer MEDICARE, OTHER, SELFPAY ==
[2019-10-17 11:16] VITALS: BMI 23.9
[2019-10-23] VITALS (7 sets, daily range): BP systolic 78–125; BP diastolic 46–74; PULSE 65–82; RESP 18; TEMP 36.1–36.3; O2SAT 91–99
--- NOTE | 2019-10-23 08:42 | P.PN_ITS ---
[facility] Anesthesia Checklist - Patient Identification Patient Identification: Arm Band - Structural Data Admitted From: Home Planned Operative Procedure/s: egd Consent for Planned Operative Procedure(s) Verified: Yes Verified Documents: Surgical Consent, History and Physical - NPO Status Verified Time NPO: 00:00 - Additional verifications Anesthesia Reactions: No Hx Blood Transfusions: No Blood Transfusion Reaction: No - Airway Assessment C-Spine Mobility Assessed: Yes (mp2) TMJ Mobility Assessed: Yes Dentition: Poor Dentition - Neurological Assessment Level of Consciousness: Awake, Alert - Anesthesia Plan Anesthesia Risk discussed: Yes Anesthesia Plan: Verified ASA Class: II Anesthesia Type: MAC [facility] History I have reviewed the patient's past medical history: Yes Medical History: Reports:: Cancer (esophageal), Gastroesophageal Reflux Disease(GERD) Denies:: Diabetes Mellitus Type 1, Diabetes Mellitus Type 2, Internal Pacemaker, Lung Disease, MRSA, Seizures *Have you ever received a pneumonia vaccine?: Yes *Have you received a flu vaccine this season?: Yes Other Medical History: Reports: Anemia. Denies: Blood Transfusion Reaction Anesthesia experience/problems:: nac Laterality Cases: Left: Other Other Surgeries: Yes: Appendectomy, Cholecystectomy, Colonoscopy, EGD, Other (Stomach and R hand). No: Pacemaker Amputation: Yes Fractures: Yes - *Social History Last grade of school completed: 11th or 12th Smoking Status: Never smoker Alcohol Intake: never Substance Use Type: denies use *Occupational Status:: retired Housing: house Household Members: none *Travel in the last 8 weeks: None Family Hx:: Cancer
--- NOTE | 2019-10-23 09:08 | HMH.HP ---
*Admission Date: 10/23/19 *Chief complaint: Need for EGD *History of present illness: Patient presents for follow-up upper endoscopy. She is a 69-year-old white female who whom I have seen previously for upper endoscopy. She has a history of esophageal carcinoma for which she underwent chemotherapy and radiation in 2006. Due to side effects she apparently was unable to complete the chemotherapy. She was followed for some time by Dr. Sanford. She has had numerous, approximately 18 or 19, upper endoscopies over the past 11 years since her diagnosis with several dilatations. She had numerous upper endoscopies by gastroenterology previously and in 2014 had an upper endoscopy by Dr. Ochoa. I had performed upper endoscopy in 2017 and this revealed evidence of some acute esophagitis between 15 and 30 cm from the incisors but no evidence of any stricture. Multiple biopsies were performed. I had planned for a follow-up endoscopy in 1 year which was done in February 2018. Gastric mucosal biopsy was obtained for CLOtest which was negative. Multiple biopsies were obtained at the gastroesophageal junction and of the distal esophagus which she had evidence of visible esophagitis. This revealed findings consistent with reflux esophagitis . She had presented last summer for a follow-up upper endoscopy as she would much prefer this be done during the warm summer. I informed her that this would be likely an unnecessary and low yield procedure given the fact that she had just had a upper endoscopy a few months prior. Therefore plan was made for upper endoscopy at this time during the summer 2019. [facility] History I have reviewed the patient's past medical history: Yes Medical History: Reports:: Cancer (esophageal), Gastroesophageal Reflux Disease(GERD) Denies:: Diabetes Mellitus Type 1, Diabetes Mellitus Type 2, Internal Pacemaker, Lung Disease, MRSA, Seizures *Have you ever received a pneumonia vaccine?: Yes *Have you received a flu vaccine this season?: Yes Other Medical History: Reports: Anemia. Denies: Blood Transfusion Reaction Anesthesia experience/problems:: nac Laterality Cases: Left: Other Other Surgeries: Yes: Appendectomy, Cholecystectomy, Colonoscopy, EGD, Other (Stomach and R hand). No: Pacemaker Amputation: Yes Fractures: Yes - *Social History Last grade of school completed: 11th or 12th Smoking Status: Never smoker Alcohol Intake: never Substance Use Type: denies use *Occupational Status:: retired Housing: house Household Members: none *Travel in the last 8 weeks: None Family Hx:: Cancer Review of Systems - Review of Systems Review of systems:: pertinent systems reviewed and negative unless documented below Meds Home Medications Medication Instructions Recorded Confirmed Type celecoxib 200 mg capsule 200 mg PO DAILY 02/18/17 10/23/19 History duloxetine 30 mg capsule,delayed 30 mg PO DAILY 02/18/17 10/23/19 History release metoclopramide HCl 10 mg tablet 10 mg PO QID 02/18/17 10/23/19 History hcwpqrit-pelzymu-lyrk-lutein 1 mcg PO DAILY 02/18/17 10/23/19 History nystatin 100,000 unit/gram topical 1 applic TOPICAL BID 02/18/17 10/23/19 History cream omeprazole 40 mg capsule,delayed 40 mg PO DAILY 02/18/17 10/23/19 History release psyllium husk 3.4 gram/5.4 gram 1 tbsp PO DAILY 02/18/17 10/23/19 History oral powder sumatriptan succinate 100 mg tablet 100 mg PO NEEDED PRN 02/18/17 10/23/19 History tizanidine 2 mg capsule 2 mg PO QID 02/18/17 10/23/19 History Loratadine [Claritin] 10 mg PO DAILY 12/05/17 10/23/19 History polyethylene glycoL 3350 [Miralax 34 gm PO DAILY 12/05/17 10/23/19 History 17gm Packet] Ondansetron [Zofran 8mg ODT] 8 mg PO TIDP PRN #20 tab 12/08/17 10/23/19 Rx Allergies Allergy/AdvReac Type Severity Reaction Status Date / Time milk Allergy Mild Vomiting Verified 10/17/19 11:13 promethazine [From Phenergan] Allergy Mild whole body Verified 10/17/19 11:13 aches eggs
--- NOTE | 2019-10-23 09:39 | HMH.SCOPE ---
- Procedure: Date: 10/23/19 Patient Date of :: 1950 Procedure Performed:: Esophagogastroduodenoscopy Indications:: Patient presents for follow-up upper endoscopy. She is a 69-year-old white female who whom I have seen previously for upper endoscopy. She has a history of esophageal carcinoma for which she underwent chemotherapy and radiation in 2006. Due to side effects she apparently was unable to complete the chemotherapy. She was followed for some time by Dr. Sanford. She has had numerous, approximately 18 or 19, upper endoscopies over the past 11 years since her diagnosis with several dilatations. She had numerous upper endoscopies by gastroenterology previously and in 2014 had an upper endoscopy by Dr. Ochoa. I had performed upper endoscopy in 2017 and this revealed evidence of some acute esophagitis between 15 and 30 cm from the incisors but no evidence of any stricture. Multiple biopsies were performed. I had planned for a follow-up endoscopy in 1 year which was done in February 2018. Gastric mucosal biopsy was obtained for CLOtest which was negative. Multiple biopsies were obtained at the gastroesophageal junction and of the distal esophagus which she had evidence of visible esophagitis. This revealed findings consistent with reflux esophagitis . She had presented last summer for a follow-up upper endoscopy as she would much prefer this be done during the warm summer. I informed her that this would be likely an unnecessary and low yield procedure given the fact that she had just had a upper endoscopy a few months prior. Therefore plan was made for upper endoscopy at this time during the summer 2019. Performing Provider:: Jam Palmer MD Referring Provider:: Wicho De La Cruz MD Sedation:: Propofol Procedure:: Patient was taken to endoscopy procedure room. She was positioned in lateral decubitus position. Adequate intravenous sedation was achieved with anesthesia titration of propofol. Olympus endoscope was inserted via the oropharynx advanced through the esophagus. She had findings of radiation-induced distal esophagitis between approximately 20 cm from the incisors and 30 cm from the incisors. The gastroesophageal junction was encountered at approximately 30 cm. Stomach was cannulated and insufflated and retroflexion revealed a moderately large sliding hiatal hernia. Pylorus was traversed and the duodenum appeared unremarkable. Gastric mucosal biopsies obtained for H. pylori assessment. Endoscope was withdrawn to the distal esophagus and biopsies were obtained at varying levels including several biopsies at the gastroesophageal junction. Additional biopsies were obtained at 30 cm, 25 cm, 22 cm, and 18 cm from the incisors. Stomach was desufflated and the endoscope was withdrawn. Findings:: Findings consistent with radiation-induced chronic esophagitis between 20 and 30 cm from the incisors Moderately large sliding hiatal hernia Recommendations:: Repeat upper endoscopy for surveillance in 1 to 2 years Complications:: None immediately apparent Estimated blood obtained (mL): 2
== END 2019-10-23 10:42 | disposition home or self-care (01) ==
LOC: OUTP 08:02
PROVIDERS: PCP Family Medicine; Visit Provider Surgery
PROC: 0DJ08ZZ Inspection of Upper Intestinal Tract, Via Natural or Artificial Opening Endoscopic (ICD-10-PCS; CPT 43235; principal; 2019-10-23 09:30)
DX: K20.8 Other esophagitis (principal); K22.2 Esophageal obstruction; T66.XXXD Radiation sickness, unspecified, subsequent encounter; K44.9 Diaphragmatic hernia without obstruction or gangrene; K21.9 Gastro-esophageal reflux disease without esophagitis; Z90.49 Acquired absence of other specified parts of digestive tract; Z79.899 Other long term (current) drug therapy; Z88.8 Allergy status to other drugs, medicaments and biological substances; Z91.012 Allergy to eggs; Z91.011 Allergy to milk products
CPT/HCPCS: 43239; 88305

== ENCOUNTER → 2020-05-26 08:58 | Outpatient (CLI) | payer MEDICARE, OTHER, SELFPAY ==
[2020-05-26 09:53] LABS: Coronavirus 19 IgG Antibody Negative (Negative); Coronavirus 19 IgM Antibody Negative (Negative)
== END ==
PROVIDERS: Visit Provider Surgery
DX: Z01.812 Encounter for preprocedural laboratory examination (principal); Z11.52 Encounter for screening for COVID-19; Z13.810 Encounter for screening for upper gastrointestinal disorder
CPT/HCPCS: 36415; 86328

== ENCOUNTER 2020-05-28 08:26 | Day surgery (SDC) | payer MEDICARE, OTHER, SELFPAY ==
[2020-05-28 09:08] VITALS: BP 122/68; PULSE 78; RESP 18; TEMP 36.8; O2SAT 98; BMI 23.9
--- NOTE | 2020-05-28 09:43 | HMH.ANESCL ---
[facility] Anesthesia Checklist - Patient Identification Patient Identification: Arm Band - Structural Data Admitted From: Home Planned Operative Procedure/s: egd Consent for Planned Operative Procedure(s) Verified: Yes Verified Documents: Surgical Consent, History and Physical - NPO Status Verified Time NPO: 00:00 - Additional verifications Anesthesia Reactions: No Hx Blood Transfusions: No Blood Transfusion Reaction: No - Airway Assessment C-Spine Mobility Assessed: Yes (mp2) TMJ Mobility Assessed: Yes Dentition: Good Dentition - Neurological Assessment Level of Consciousness: Awake, Alert - Anesthesia Plan Anesthesia Risk discussed: Yes Anesthesia Plan: Verified ASA Class: II Anesthesia Type: MAC [facility] History I have reviewed the patient's past medical history: Yes Medical History: Reports:: Cancer (esophageal), Gastroesophageal Reflux Disease(GERD) Denies:: Diabetes Mellitus Type 1, Diabetes Mellitus Type 2, Internal Pacemaker, Lung Disease, MRSA, Seizures *Have you ever received a pneumonia vaccine?: Yes *Have you received a flu vaccine this season?: Yes Other Medical History: Reports: Anemia. Denies: Blood Transfusion Reaction Anesthesia experience/problems:: nac Laterality Cases: Left: Other Other Surgeries: Yes: Appendectomy, Cholecystectomy, Colonoscopy, EGD, Other (Stomach and R hand). No: Pacemaker Amputation: Yes Fractures: Yes - *Social History Last grade of school completed: 11th or 12th Smoking Status: Never smoker Alcohol Intake: never Substance Use Type: denies use *Occupational Status:: retired Housing: house Household Members: none *Travel in the last 8 weeks: None Family Hx:: Cancer
[2020-05-28 09:48] VITALS: O2SAT 98
--- NOTE | 2020-05-28 10:09 | HMH.SCOPE ---
- Procedure: Date: 05/28/20 Patient Date of :: 1950 Procedure Performed:: Esophagogastroduodenoscopy with biopsies and dilatation using pneumatic dilator to 18 mm Indications:: Patient presents for upper endoscopy. She recently was seen in the office for follow-up earlier than scheduled. She is a 69-year-old white female whom I have seen previously for upper endoscopy. She has a history of esophageal carcinoma for which she underwent chemotherapy and radiation in 2006. Due to side effects she apparently was unable to complete the chemotherapy. She has had numerous, approximately 20, upper endoscopies over the past 11 years since her diagnosis with several dilatations. She had numerous upper endoscopies by gastroenterology previously and in 2014 had an upper endoscopy by Dr. Ochoa. I have performed colonoscopy in 2017, 2018, and most recently in October 2019. She had evidence of radiation-induced esophagitis between 20 and 30 cm from the incisors. Biopsies did reveal findings consistent with Medina's without dysplasia. She had a small hiatal hernia. She recently presented to the office due to some complaints of dysphagia. She states that she feels like food occasionally gets stuck. She has had an episode last week which she was unable to swallow her secretions but then this resolved. She is concerned that she may have a recurrence of her cancer and she may need to have her esophagus stretched. Performing Provider:: Jam Palmer MD Referring Provider:: None Sedation:: MAC sedation Procedure:: Patient was taken to endoscopy procedure room. Adequate intravenous sedation achieved with anesthesia titration of propofol. Olympus endoscope was inserted via the oropharynx. She did have some possible spasm of the cricopharyngeus with minor narrowing. Esophagus was characterized by chronic esophagitis between 20 and 30 cm from the incisors. Gastroesophageal junction was encountered at 30 cm. Stomach was cannulated and insufflated. She had a moderately large sliding hiatal hernia. Gastric antral mucosal biopsies obtained for CLOtest for H. pylori. Pylorus was traversed. Duodenum appeared unremarkable. Endoscope was withdrawn into the distal esophagus. Several biopsies were obtained at the gastroesophageal junction. There was some minor narrowing and this was dilated sequentially to 15mm, 16.5 mm, and 18 mm using the pneumatic dilator. Several biopsies were obtained of the esophagus to characterize the esophagitis. Endoscope was withdrawn. Findings:: Possible cricopharyngeal spasm Diffuse chronic esophagitis for the majority of the esophagus between 20 and 30 cm from the incisors Distal esophageal narrowing, dilated after biopsies performed Moderate sliding hiatal hernia Recommendations:: Patient to be seen in the office for follow-up clinically. Complications:: None immediately apparent Estimated blood obtained (mL): 2
[2020-05-28 10:10] VITALS: BP 88/52; PULSE 76; RESP 18; TEMP 36.3; O2SAT 96
[2020-05-28 10:20] VITALS: BP 111/64; PULSE 65; RESP 18; O2SAT 96
[2020-05-28 10:30] VITALS: BP 120/69; PULSE 55; RESP 18; O2SAT 96
== END 2020-05-28 10:45 | disposition home or self-care (01) ==
LOC: OUTP 08:26
PROVIDERS: PCP Family Medicine; Visit Provider Surgery
PROC: 0DJ08ZZ Inspection of Upper Intestinal Tract, Via Natural or Artificial Opening Endoscopic (ICD-10-PCS; CPT 43235; principal; 2020-05-28 10:00)
DX: J39.2 Other diseases of pharynx (principal); K20.80 Other esophagitis without bleeding; K22.2 Esophageal obstruction; K44.9 Diaphragmatic hernia without obstruction or gangrene
CPT/HCPCS: 43239; 43249; 87339; 88305; C1726

== ENCOUNTER → 2021-01-12 12:05 | Outpatient (CLI) | payer MEDICARE, OTHER, SELFPAY ==
--- NOTE | 2021-01-12 12:05 | FL_ITS ---
PROCEDURE: FL BARIUM SWALLOW MODIFIED CLINICAL INDICATION: difficulty swallowing What constitutes penetration a what constitutes penetration modified barium swallow, radial PD the COMPARISON: No exams were available for comparison TECHNIQUE: Patient administered varying consistencies of barium contrast, while viewed in lateral position under real-time fluoroscopy with cine recording. FLUOROSCOPY TIME:1.10 minutes The study was performed in conjunction with speech pathologist. Please see that report & recommendations. FINDINGS: Patient was given varying consistencies of barium. No abnormalities apparent. No aspiration or penetration or significant delay or residual.. IMPRESSION: Unremarkable modified barium swallow. Please see speech pathologist report and recommendations. Dictated by: Jose Luis Perez MD 01/13/2021 10:00 Jose Luis Perez MD in [facility] 01/13/2021 10:00
--- NOTE | 2021-01-12 13:36 | HMH.SLMBS2 ---
Speech & Language Evaluation Speech/Language Mod Barium Swallow Start: 01/12/21 13:23 Freq: once Status: Complete Protocol: Document 01/12/21 13:23 IGNACIO (Rec: 01/12/21 13:36 IGNACIO [id number]) General Information General Current Food Consistancy Regular,Thin Liquids Dentition Good Dentition Oxygen Status Room Air Facial Symmetry Asymmetrical Patient Orientation Person,Place,Time,Situation Ability to Follow Directions Excellent Communication Ability No Impairment MBS Recommendations Diet Dietary Recommendations Regular,Thin Liquids Treatment/Strategies Strategy/Precaution Recommend Sitting Upright (90 deg),Small Bites and Sips,Alternate Liquids/Solids Mod Barium Swallow Impressions Summary and Impressions Oral Phase Impression No Impairment (WFL) Oral Phase Summary Ms. Fields was given the following consistencies: thins via straw and open cup, pudding, mechanical soft, regular, and pill with thin wash. No oral phase impairments were noted. Pharyngeal Phase Impression Minimal Impairment Pharyngeal Phase Summary Flash penetration into the laryngeal vestibule was noted with large volume of thin liquids via open cup. It is recommended she remain on current diet, take small bites /sips throughout meal, and alternate between bites and sips. Speech/Language MBS Assessment/Goals/Plan Assessment Date of Evaluation: 01/12/21 Evaluation Type Initial Certification Assessment/Problems Dysphagia Does Patient Qualify for Service No Qualify/Failure Comment Minimal signs of dysphagia were noted. Recommendations were made for compensatory strategies to complete at home . Recommendations PHYSICIAN CERTIFICATION: The specified therapy services are required, authorized, and reviewed every 30 days. Dysphagia Swallow Precautions/Strategies Sitting Upright (90 deg),Small Bites and Sips,Alternate Liquids/Solids Plan Pt/Guardian verbally ack understanding Yes of dx/prognosis/goals G -code Required No Mod Barium Swallow Setup Exam Setup Radiologist Jose Luis Perez Level of Consciousness Awake,Alert,
== END ==
PROVIDERS: PCP Family Medicine; Visit Provider Surgery
DX: R11.2 Nausea with vomiting, unspecified (principal)
CPT/HCPCS: 70371; 92611

== ENCOUNTER → 2021-03-26 12:12 | Outpatient (CLI) | payer MEDICARE, OTHER, SELFPAY ==
[2021-03-26 13:29] LABS: Adenovirus,PCR Not Detected (NotDetected); Bordetella Pertussis Not Detected (NotDetected); Chlamydophila Pneumoniae, PCR Not Detected (NotDetected); Coronavirus 229E Not Detected (NotDetected); Coronavirus NL63 Not Detected (NotDetected); Coronavirus OC43 Not Detected (NotDetected); Coronovirus HKU1,PCR Not Detected (NotDetected); Human Metapneumovirus Not Detected (NotDetected); Influenza A, PCR Not Detected (NotDetected); Influenza AH1, 2009 Not Detected (NotDetected); Influenza AH1, PCR Not Detected (NotDetected); Influenza AH3,PCR Not Detected (NotDetected); Influenza B, PCR Not Detected (NotDetected); Mycoplasma Pneumoniae, PCR Not Detected (NotDetected); Parainfluenza 1, PCR Not Detected (NotDetected); Parainfluenza 2, PCR Not Detected (NotDetected); Parainfluenza 3, PCR Not Detected (NotDetected); Parainfluenza 4, PCR Not Detected (NotDetected); Respiratory Syncytial Virus Not Detected (NotDetected); Rhinovirus/Enterovirus Not Detected (NotDetected)
[2021-03-26 13:56] LABS: Basophils % 0.4 % (0.1-2.0); Eosinophils # 0.1 K/mm3 (0.0-0.4); Eosinophils % 1.2 % (0.1-12.0); Hematocrit 39.2 % (37.0-47.0); Hemoglobin 12.4 g/dL (12.2-16.2); Lymphocytes # 0.9 K/mm3 (0.7-4.5); Lymphocytes % 19.1 % (10-50); Mean Corpuscular HGB Conc 31.7 g/dL (31.8-35.4); Mean Corpuscular Hemoglobin 28.9 pg (27.0-31.2); Mean Corpuscular Volume 91.3 fl (81-99); Mean Platelet Volume 8.4 fl (7.4-10.4); Monocytes # 0.3 K/mm3 (0.1-1.0); Monocytes % 5.8 % (1.7-9.3); Neutrophils # 3.4 K/mm3 (1.8-7.8); Neutrophils % 73.5 % (37.0-80.0); Platelet Count 189 K/mm3 (142-424); Red Blood Count 4.29 M/mm3 (4.20-5.40); Red Cell Distribution Width 13.4 % (11.5-17.5); White Blood Count 4.7 K/mm3 (4.8-10.8)
[2021-03-26 19:51] LABS: Coronavirus 19, PCR Detected (NotDetected)
== END ==
PROVIDERS: PCP Family Medicine; Visit Provider Family Medicine
DX: U07.1 COVID-19 (principal); R06.02 Shortness of breath
CPT/HCPCS: 36415; 85025; 87581; 87632; 87798; C9803; U0003; U0005

== ENCOUNTER 2021-03-29 08:02 | Emergency (ER) | payer MEDICARE, OTHER, SELFPAY ==
[2021-03-29 08:02] VITALS: BP 123/68; PULSE 99; RESP 16; TEMP 36.7; O2SAT 95; BMI 23.8
--- NOTE | 2021-03-29 08:20 | XR_ITS ---
PROCEDURE INFORMATION: Exam: XR Soft Tissue Neck Exam date and time: 03/29/2021 8:20 AM Age: 70 years old Clinical indication: Dysphagia / difficulty swallowing; Patient HX: History of esophageal cancer TECHNIQUE: Imaging protocol: XR of the soft tissues of the neck. COMPARISON: None FINDINGS: Airway: Normal configuration of the airway. Soft tissues: Unremarkable epiglottis. Bones/joints: Multilevel degenerative change , diminished cervical lordosis, and mild convexity of the spine. IMPRESSION: Multilevel degenerative change in the cervical spine.
[2021-03-29 08:30] VITALS: BP 119/69; PULSE 90; RESP 15; O2SAT 96
--- NOTE | 2021-03-29 08:32 | PC.NURSE ---
pt to radiology
--- NOTE | 2021-03-29 08:39 | PC.NURSE ---
pt back from radiology and to the bathroom.
[2021-03-29 09:00] VITALS: BP 125/64; PULSE 91; RESP 14; O2SAT 96
[2021-03-29 09:30] VITALS: BP 124/64; PULSE 86; RESP 14; O2SAT 97
--- NOTE | 2021-03-29 09:56 | PC.NURSE ---
Ice was given to the patient for her water. Stated that she can't drink hot water, wanted ice. Ice provided. MD at bedside at this time. Pt has been able to drink half of a water without any difficulty, MD made aware.
[2021-03-29 10:00] VITALS: BP 132/67; PULSE 90; RESP 15; O2SAT 97
--- NOTE | 2021-03-29 10:01 | HMH.EDGENADL ---
ED Disposition Clinical Impression: Dysphagia Disposition: Home, Self-Care Condition on Discharge: Good Instructions: Esophageal Dysphagia Additional Instructions: Please follow up with your throat specialist in the next week for barium swallow and EGD scoping. Please continue to drink water and eat soft foods such as apple sauce, pedialyte and other soft foods. Please return if you are unable to tolerate liquids. Referrals: Wicho De La Cruz MD [Primary Care Provider] - Time of Disposition: 10:45 - Critical Care Critical Care Time: No Attestation: On 03/29/21, the high probability of a clinically significant, sudden or life threatening deterioration of the following system(s) required my full and direct attention, intervention and personal management. The time I documented below is in addition to time spent performing reported procedures but includes the following listed in this critical care notation. Medical Decision Making - Medical Records Medical records reviewed: Yes: I reviewed the patient's medical records. - Sukhdeep Inquiry Pt receiving controlled substance: No Vital Signs: 03/29/21 08:02 03/29/21 08:30 03/29/21 09:00 Temperature 98.1 F Temperature Source Oral Pulse Rate 90 91 H Pulse Rate [Right Radial] 99 H Respiratory Rate 16 15 14 Blood Pressure 119/69 125/64 Blood Pressure [Right Arm] 123/68 Blood Pressure Mean 78 84 Blood Pressure Mean [Right Arm] 86 Blood Pressure Source [Right Arm] Automatic Cuff Blood Pressure Position [Right Arm] Sitting 02 Sat by Pulse Oximetry 95 96 96 Oxygen Delivery Method Room Air 03/29/21 09:30 03/29/21 10:00 03/29/21 10:20 Temperature 98.1 F Temperature Source Pulse Rate 86 90 90 Pulse Rate [Right Radial] Respiratory Rate 14 15 15 Blood Pressure 124/64 132/67 132/67 Blood Pressure [Right Arm] Blood Pressure Mean 76 88 Blood Pressure Mean [Right Arm] Blood Pressure Source [Right Arm] Blood Pressure Position [Right Arm] 02 Sat by Pulse Oximetry 97 97 Oxygen Delivery Method - Lab Data Lab results reviewed: Yes: I reviewed the patient's lab results. Orders (Tests/Meds): ED MEDICATIONS Discontinued Medications Generic Name Dose Route Start Last Admin Trade Name Freq PRN Reason Stop Dose Admin Lactated Ringer's 1,000 mls @ 999 mls/hr 03/29/21 08:30 Lactated Ringer's 1000 Ml Bag IV 03/29/21 09:30 .Q1H1M [facility] Medical Decision Narrative: Miss Fields is a 70 yo female w/ PMH for esophageal cancer s/p chemoradiation and dysphagia/odynophagia s/p esophageal dilation, presenting with dysphagia and odynophagia for 3d. Patient is afebrile and hemodynamically stable. Physical exam patient full ROM neck. No oropharyngeal changes. Uvula midline. No tenderness to cervical palpation. Patient is tolerating her secretions, no drooling or stridor. No focal deficits on exam. Patient has no clinical signs of dehydration, moist mucous membranes, good cap refill and skin turgor. Differentials to consider but not limited to include: esophageal dysmotility 2/2 to radiation, cancer/masses, esophagitis however unlikely given chronicity of symptoms. XR of the soft tissue neck is non actionable. Patient is po challenged in the ED and is able to tolerate liquids. Patient underwetn barium swallow recently which was normal per the patient. Patient will ultimately require repeat barium swallow and EGD scoping. Patient is instructed to eat purred foods and continue to drink plenty of water slowly. Patient instructed to see if she can move her ENT/throat appointment sooner. Patient currently tolerating liquids. Patient instructed to return if she becomes unable to tolerate liquids, chest pain, difficulty breathing or any other concerning symptoms. General Adult HPI - General Chief complaint: Recheck/Abnormal Lab/Rx Stated complaint: unable to swallow Time Seen by Provider: 03/29/21 08:05 Mode of Arrival: Wheelchair [facility]
[2021-03-29 10:20] VITALS: BP 132/67; PULSE 90; RESP 15; TEMP 36.7; O2SAT 97
== END 2021-03-29 10:20 | disposition home or self-care (01) ==
PROVIDERS: Emergency Provider Student in an Organized Health Care Education/Training Program; PCP Family Medicine
DX: R13.10 Dysphagia, unspecified (principal); Z85.01 Personal history of malignant neoplasm of esophagus; K21.9 Gastro-esophageal reflux disease without esophagitis
CPT/HCPCS: 70360; 99282

== ENCOUNTER 2021-04-22 13:29 | Outpatient (RCR) | payer MEDICARE, OTHER, SELFPAY ==
--- NOTE | 2021-04-22 14:24 | HMH.SLDYSPHA ---
Speech & Language Evaluation Speech/Language Dysphagia Evaluation Start: 04/22/21 14:13 Freq: ONCE Status: Active Protocol: Document 04/22/21 14:13 IGNACIO (Rec: 04/22/21 14:24 IGNACIO [id number]) Dysphagia Assess/Goals/Plan Assessment Date of Evaluation: 04/22/21 Evaluation Type Initial Certification Assessment/Problems Dysphagia Does Patient Qualify for Service No Qualify/Failure Comment Ms. Fields is not displaying any overt signs of dysphagia at this time. Recommendations PHYSICIAN CERTIFICATION: The specified therapy services are required, authorized, and reviewed every 30 days. Diet Recommendations Normal Liquid Type Recommendations Normal/Thin SL Swallow Guidelines Standard Aspiration Prec., Crush meds as allowed*,Eat at slow rate Crush Meds Small OK/Crush large pill Dysphagia Swallow Precautions/Strategies Sitting Upright (90 deg),Small Bites and Sips,Alternate Liquids/Solids Plan Pt/Guardian verbally ack understanding Yes of dx/prognosis/goals G -code Required No Speech & Language HPI Language Primary Language Spanish General Information General Current Food Consistancy Mechanical Soft,Thin Liquids Dentition Good Dentition Oxygen Status Room Air Facial Symmetry Symmetrical Patient Orientation Person,Place,Time,Situation Ability to Follow Directions Excellent Communication Ability No Impairment Dysphagia:Food Presentation Evaluation Food Type Pureed,Mechanical Soft,Regular ,Liquid,Pudding Dysphagia Evaluation Summary Ms. Fields was given the following consistencies; thins via open cup and straw, pudding, puree, mechanical soft, and regular. She did not display any signs of dysphagia. At this time speech therapy is not warranted. Patient was given compensatory strategies for HEP. Stroke Dysphagia Assessment PHYSICIAN CERTIFICATION: I certify the specified therapy services for Xuan Fields are required, authorized, and reviewed every 30 days.
== END 2021-04-22 13:30 | disposition home or self-care (01) ==
LOC: ST 13:29
PROVIDERS: PCP Family Medicine; Visit Provider Otolaryngology
DX: R13.10 Dysphagia, unspecified (principal)
CPT/HCPCS: 92610

== ENCOUNTER → 2021-05-15 09:45 | Outpatient (CLI) | payer MEDICARE, OTHER, SELFPAY ==
--- NOTE | 2021-05-15 09:53 | FL_ITS ---
FINAL REPORT CLINICAL HISTORY: . FINDINGS: ESOPHAGRAM HISTORY: Dysphagia. TECHNIQUE: The patient ingested thick and thin barium contrast. Spot films were performed. A total of 63 images were saved. FINDINGS: There are multiple webs identified in the cervical esophagus. There appear to be approximately 4 present. These are located both anteriorly and posteriorly. The esophagus demonstrates a moderate sliding type hiatal hernia. There is gastroesophageal reflux to the mid esophagus. 13 mm barium tablet is delayed in the mid esophagus and does not pass during the examination. There does appear to be relative narrowing of the distal esophagus in this region. There are postoperative changes noted at the GE junction. The patient was not clear on her prior surgical history. Fluoroscopy time:1 minute 40 seconds IMPRESSION: Multiple cervical esophageal webs. Moderate hiatal hernia with gastroesophageal reflux. 13 mm barium tablet is delayed in the esophagus and does not pass during the examination. There does appear to be relative narrowing of the distal esophagus. Consider correlation with endoscopy. Reviewed, Interpreted and Dictated by Jam Akbar III, MD Transcribed by Ronit Morgan PA-C Authenticated by Jam Akbar III, MD on 05/15/2021 01:07:18 PM [facility]
== END ==
PROVIDERS: PCP Family Medicine; Visit Provider Otolaryngology
DX: R13.10 Dysphagia, unspecified (principal)
CPT/HCPCS: 74220

== ENCOUNTER 2021-07-10 10:00 | Outpatient (RCR) | payer MEDICARE, OTHER, SELFPAY ==
--- NOTE | 2021-04-15 13:40 | HMH.PTOPEV ---
PT Outpatient Evaluation Rehab PT Outpatient Evaluation Start: 04/15/21 12:47 Freq: Status: Active Protocol: Document 04/15/21 13:08 ARABELLA (Rec: 04/15/21 13:40 ARABELLA [id number]) Electronically Signed By Matheus Diamond, PT 04/15/21 13:08 Outpatient Therapy Subjective History Subjective History Pt reports h/o esophageal cancer ~14 yrs ago caused by recurrent acid reflux. Pt reports chemo and radiation treatements caused dysphagia, and reports currently 'a gurgling sound in the left side of my throat when swallowing', and reports limitations in flexibility in neck, harshad. w/rotation, 'my hairdresser says my neck is tight'. Chief Complaint Stiff Symptom Type Other Symptoms Relieved By Nothing Symptoms Aggravated By Physical Activity Prior Functional Limitations Driving Current Functional Limitations Reaching,Housework,Driving Symptom Description Constant and Continuous Level of pain today (0-10) 0 Pain scale - at its best (0-10) 0 Pain scale - at its worst (0-10) 0 Cervical Eval Palpation Cervical Muscles R Cervical Paraspinal,L Cervical Paraspinal,R SCM,L SCM,R Upper Trapezius,L Upper Trapezius Cervical/Thoracic Palpation Findings Muscle Guarding Posture Head/C-Spine Posture Sitting Position Flexed,Rotated Right,Side Bent Right Head/C-Spine Posture Standing Position Flexed,Rotated Right,Side Bent Right Flexibility Deficits Upper Trapezius Muscle Length (R) Mild Tightness,(L) Mild Tightness Sternocleidomastoid Muscle Length (R) Severe Tightness,(L) Severe Tightness Pectoralis Major Muscle Length (R) Moderate Tightness,(L) Moderate Tightness Pectoralis Minor Muscle Length (R) Moderate Tightness,(L) Moderate Tightness AROM Cervical Spine Extension Active Range of +4 Motion (degrees) Cervical Spine Flexion Active Range of 4-61 Motion (degrees) Cervical Spine Right Lateral Flexion 0-17 Active Range of Motion (degrees) Cervical Spine Left Lateral Flexion 0-19 Active Range of Motion (degrees) Cervical Spine Right Rotation Active 0-31 Range of Motion (degrees) Cervical Spine Left Rotation Active 0-35 Range of Motion (degrees)
--- NOTE | 2021-05-13 10:50 | HMH.RHREAS ---
Rehab Reassessment Rehab OP Re-assessment Start: 05/13/21 10:34 Freq: Status: Active Protocol: Document 05/13/21 10:43 ARABELLA (Rec: 05/13/21 10:50 ARABELLA [id number]) Electronically Signed By Matheus Diamond, PT 05/13/21 10:43 Rehab Re-assessment Subjective Subjective Pt reports improved neck ROM and pain since exacerbation occurred with intial execution of HEP for neck flexibility. 'Once you told me to limit frequency I started feeling a lot better.' Pt reports now exercises 'don't create issue, and it's moving better'. Objective Objective Notes FLEXIBILITY: IZZY. PEC MAJOR, MINOR MIN-MOD, IZZY. UT MM MIN, IZZY SCALENE MODERATE TTP: IZZY. UT MM 1-2/4, IZZY. CERVICAL PARA MM 1/4 CROM: FLX 0-2, EXT 0-65, R ROT 0-44, L ROT 0-41, R SB 0-21, L SB 0-19 MMT:BUE 4/5 AT SH AND ELBOW Assessment Progress Assessment Slower Than Expected Assessment Notes SLIGHT IMPROVEMENTS IN ROM, TTP, FLEXIBILITY Patient goals met STG/LTG'S 04/19 Plan Plan Pt to continue w/skilled P.T. to make further improvements in CROM, strength (periscap mm ), TTP, and flexibiltiy to allow for optimal function Frequency of Therapy 1-2x/wk Duration of therapy 2-4wks Time and Billing Re-Eval Time 12 Re-Eval Billing Units 0 PHYSICIAN CERTIFICATION: I certify the specified therapy services for Xuan Fields are required, authorized, and reviewed every 30 days.
--- NOTE | 2021-06-12 10:41 | HMH.RHREAS ---
Rehab Reassessment Rehab OP Re-assessment Start: 05/13/21 10:34 Freq: Status: Active Protocol: Document 06/12/21 09:52 ARABELLA (Rec: 06/12/21 10:41 ARABELLA [id number]) Electronically Signed By Matheus Diamond, PT 06/12/21 09:52 Rehab Re-assessment Subjective Subjective Pt reports improved neck pain and ROM since I eval, 'it's definitely moving better.' Objective Objective Notes FLEXIBILITY: IZZY. PEC MAJOR, MINOR MIN limitation, IZZY. UT MM MIN, IZZY SCALENE min- MODERATE TTP: IZZY. UT MM 1-2/, IZZY. CERVICAL PARA MM 4 CROM: FLX 0-65, EXT 0-31, R ROT 0-47, L ROT 0-48, R SB 0- 20, L SB 0-23 MMT:BUE 4/5 AT SH AND ELBOW Assessment Progress Assessment Progressing as Expected Assessment Notes pt exhibited significant increase in cervical extension this am Patient goals met STG/LTG'S 05/20 Plan Plan Pt to continue w/skilled P.T. to make further improvements in CROM, strength (periscap mm ), TTP, and flexibiltiy to allow for optimal function Frequency of Therapy 1-2x/wk Duration of therapy 3-4wks Time and Billing Re-Eval Time 12 Re-Eval Billing Units 1 PHYSICIAN CERTIFICATION: I certify the specified therapy services for Xuan Fields are required, authorized, and reviewed every 30 days.
== END 2021-07-10 10:05 | disposition home or self-care (01) ==
LOC: PT 10:00
PROVIDERS: PCP Family Medicine; Visit Provider Otolaryngology
DX: M54.2 Cervicalgia (principal); M62.81 Muscle weakness (generalized); R13.10 Dysphagia, unspecified; J39.2 Other diseases of pharynx
CPT/HCPCS: 97010; 97014; 97035; 97110; 97140; 97163; 97164; G0283

== ENCOUNTER → 2021-07-22 08:10 | Outpatient (CLI) | payer MEDICARE, OTHER, SELFPAY | PROVIDERS: PCP Family Medicine; Visit Provider Surgery | DX: Z01.818 Encounter for other preprocedural examination (principal); Z20.822 Contact with and (suspected) exposure to COVID-19; Z13.810 Encounter for screening for upper gastrointestinal disorder | CPT/HCPCS: C9803; U0003; U0005 ==

== ENCOUNTER 2021-07-24 07:45 | Day surgery (SDC) | payer MEDICARE, OTHER, SELFPAY ==
[2021-07-21 14:22] VITALS: BMI 28.9
[2021-07-24 07:55] VITALS: BP 126/53; PULSE 81; RESP 18; TEMP 36.1; O2SAT 98
--- NOTE | 2021-07-24 08:05 | P.PN_ITS ---
[facility] Anesthesia Checklist - Patient Identification Patient Identification: Arm Band - Structural Data Admitted From: Home Planned Operative Procedure/s: EGD Consent for Planned Operative Procedure(s) Verified: Yes - NPO Status Verified Time NPO: 00:00 - Additional verifications Anesthesia Reactions: No Hx Blood Transfusions: No Blood Transfusion Reaction: No - Airway Assessment C-Spine Mobility Assessed: Yes TMJ Mobility Assessed: Yes Dentition: Poor Dentition - Neurological Assessment Level of Consciousness: Awake Hx Seizures: No Numbness or tingling in extremities: No - Anesthesia Plan Anesthesia Risk discussed: Yes Anesthesia Plan: Verified ASA Class: II Anesthesia Type: MAC [facility] History I have reviewed the patient's past medical history: Yes Medical History: Reports:: Cancer, Gastroesophageal Reflux Disease(GERD) Denies:: Diabetes Mellitus Type 1, Diabetes Mellitus Type 2, Internal Pacemaker, Lung Disease, MRSA, Seizures *Have you ever received a pneumonia vaccine?: No *Have you received a flu vaccine this season?: Yes Other Medical History: Reports: Anemia. Denies: Blood Transfusion Reaction Anesthesia experience/problems:: None Laterality Cases: Left: Other Other Surgeries: Yes: Appendectomy, Cholecystectomy, Colonoscopy, EGD, Other (Stomach and R hand). No: Pacemaker Amputation: Yes Fractures: Yes - *Social History Last grade of school completed: High school graduate Smoking Status: Never smoker Alcohol Intake: never Substance Use Type: denies use *Occupational Status:: retired Housing: house Household Members: none *Travel in the last 8 weeks: None Family Hx:: Cancer
[2021-07-24 08:19] VITALS: O2SAT 98
--- NOTE | 2021-07-24 08:40 | HMH.SCOPE ---
- Procedure: Date: 07/24/21 Patient Date of :: 1950 Procedure Performed:: Esophagogastroduodenoscopy with biopsy and dilatation gastroesophageal junction to 15 mm Indications:: Patient presents for upper endoscopy. She is a 70-year-old female whom I have seen for previous upper endoscopy. She has a history of esophageal carcinoma for which she underwent chemotherapy and radiation in 2006. Apparently due to side effects she was unable to complete the chemotherapy. She has had numerous, approximately 21, upper endoscopies over the past few years subsequently. These have been performed by several different physicians. 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 Last EGD was performed on 05/28/2020. This revealed findings of possible cricopharyngeal spasm, diffuse chronic esophagitis mostly between 20 and 30 cm from the incisors with some distal esophageal narrowing which was biopsied and dilated to 18 mm as well as a moderate sliding hiatal hernia. She had presented to the office earlier than scheduled and seen in December with complaints consistent with cervical esophageal dysphagia mostly with bread type foods. She underwent modified barium swallow and speech pathology assessment which revealed minimal impairment of the pharyngeal phase with flash penetration into the laryngeal vestibule with large volume thin liquids. She did see ENT, Dr. Perez. She underwent barium swallow. This revealed multiple cervical esophageal webs. Moderate hiatal hernia with gastroesophageal reflux. 13 mm barium tablet delayed in the esophagus and does not pass during the examination. There does appear to be relative narrowing of the distal esophagus. Consider correlation with endoscopy. She has been undergoing physical therapy which has helped her dysphagia significantly. Performing Provider:: Jam Palmer MD Referring Provider:: Wicho De La Cruz MD Sedation:: MAC sedation Procedure:: Patient was taken to endoscopy procedure room. She was positioned in lateral decubitus position. Adequate intravenous sedation was achieved with anesthesia titration propofol. Olympus endoscope was inserted via the oropharynx. Esophagus was cannulated. There was evidence of some cricopharyngeal spasm. 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 There were no true esophageal webs . There was evidence of several erosions in the mid to distal esophagus. At the gastroesophageal junction, at 30 cm from the incisors, there was some significant luminal narrowing. Initially advancement of the endoscope into the gastric lumen was rather difficult. Ultimately the gastric lumen was cannulated and insufflated. There was a moderately large sliding hiatal hernia. She has some diffuse gastropathy. There were a couple of polyps consistent with fundic gland polyps. Gastric antral mucosal biopsies obtained for CLOtest for H. pylori. Gastric mucosal biopsy was obtained for histopathologic analysis. Pylorus was traversed. Duodenum appeared unremarkable. Endoscope was withdrawn into the gastric lumen. Polyp was removed for histopathologic analysis. At the gastroesophageal junction dilatation was performed using the elation balloon dilator sequentially from 12 mm to 13.5 mm to 15 mm ultimately. This appeared to result and better patency at the gastroesophageal junction. Multiple biopsies were obtained at the gastroesophageal junction due to findings consistent with focal segment of Medina's esophagus. Several biopsies were obtained of the distal esophagus at the site of erosive esophagitis. Stomach was desufflated and endoscope was withdrawn. Findings:: Cricopharyngeal spasm Esophageal dysmotility
[2021-07-24 08:42] VITALS: BP 92/47; PULSE 89; RESP 16; TEMP 36.4; O2SAT 94
[2021-07-24 08:52] VITALS: BP 110/64; PULSE 73; RESP 16; TEMP 36.4; O2SAT 98
[2021-07-24 09:02] VITALS: BP 128/72; PULSE 73; RESP 18; TEMP 36.4; O2SAT 98
[2021-07-24 09:12] VITALS: BP 122/67; PULSE 69; RESP 18; TEMP 36.4; O2SAT 98
== END 2021-07-24 09:12 | disposition home or self-care (01) ==
LOC: OUTP 07:46
PROVIDERS: PCP Family Medicine; Visit Provider Surgery
PROC: 0DJ08ZZ Inspection of Upper Intestinal Tract, Via Natural or Artificial Opening Endoscopic (ICD-10-PCS; CPT 43235; principal; 2021-07-24 09:00)
DX: R13.10 Dysphagia, unspecified (principal); K21.00 Gastro-esophageal reflux disease with esophagitis, without bleeding; Y84.2 Radiological procedure and radiotherapy as the cause of abnormal reaction of the patient, or of later complication, without mention of misadventure at the time of the procedure; Y82.8 Other medical devices associated with adverse incidents; K22.70 Barrett's esophagus without dysplasia; K44.9 Diaphragmatic hernia without obstruction or gangrene; K31.7 Polyp of stomach and duodenum; Z85.01 Personal history of malignant neoplasm of esophagus
CPT/HCPCS: 43239; 43249; 87339; 88305; 88312; 88342; C1726

== ENCOUNTER 2021-12-25 08:20 | Day surgery (SDC) | payer MEDICARE, OTHER, SELFPAY ==
[2021-12-25 08:51] VITALS: BP 125/60; PULSE 91; RESP 18; TEMP 36.7; O2SAT 98
--- NOTE | 2021-12-25 10:05 | EXP.ANES.CKL ---
PFSH PFSH Medical History (Updated 12/25/21 @ 08:44 by Janet Garcia RN) History of throat cancer Migraine Surgical History (Updated 12/25/21 @ 08:46 by Janet Garcia RN) History of hand surgery Hx laparoscopic cholecystectomy Hx of esophagogastroduodenoscopy Hx of right BKA Family History (Updated 12/25/21 @ 08:47 by Janet Garcia, RN) Other Family history of cancer Family history of diabetes mellitus type II Family history of hypothyroidism Family history of stroke Social History (Updated 12/25/21 @ 08:48 by Janet Garcia, RN) Smoking Status: Never smoker second hand exposure: No alcohol intake: never substance use type: denies use current occupational status: retired Travel in the last 8 weeks: None adopted: No caregiver/support person: No foster care: No household members: none housing: house lives independently: Yes marital status: single education level: high school current occupation: Retired current occupational exposures/hazards: No caffeine: Yes special rey needs: No agree to transfusion: No do you feel safe at home: Yes victim of physical abuse: No victim of emotional abuse: No victim of sexual abuse: No would you like helpful sources: No [facility] Anesthesia Checklist Patient Identification Patient Identification: Verbal (Name & ) Structural Data Admitted From: Home Planned Operative Procedure/s: egd Consent for Planned Operative Procedure(s) Verified: Yes Additional verifications Anesthesia Reactions: No Hx Blood Transfusions: No Blood Transfusion Reaction: No Airway Assessment C-Spine Mobility Assessed: Yes TMJ Mobility Assessed: Yes Dentition: Partials Neurological Assessment Level of Consciousness: Awake, Alert and Appropriate Anesthesia Plan Anesthesia Risk discussed: Yes Anesthesia Plan: Verified ASA Class: II Anesthesia Type: MAC
--- NOTE | 2021-12-25 10:16 | EXP.GEN.HP ---
HPI HPI HPI: Patient presents for follow-up upper endoscopy. She is a 71-year-old female with a history of esophageal carcinoma for which she underwent chemotherapy and radiation in 2006. Apparently due to side effects she was unable to complete chemotherapy. She has had numerous, approximately 22, upper endoscopies over the subsequent years performed by a variety of physicians. 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 She has had some occasional symptoms of dysphagia and has seen Dr. Perez. Last EGD I had performed was on 07/24/2021 which revealed cricopharyngeal spasm, esophageal dysmotility and presbyesophagus, findings of radiation-induced esophagitis between 18 and 30 cm with some findings of erosive ulcerative esophagitis. There was some narrowing at 30 cm. She had some findings of Medina's esophagus. There was moderate sliding hiatal hernia. There were gastric fundic gland polyps. She actually had dilatation performed. Due to the findings and ulcerative esophagitis with distal narrowing plan was made for follow-up endoscopy in 6 months. PFSH PFSH Medical History (Updated 12/25/21 @ 08:44 by Janet Garcia RN) History of throat cancer Migraine Surgical History (Updated 12/25/21 @ 08:46 by Janet Garcia RN) History of hand surgery Hx laparoscopic cholecystectomy Hx of esophagogastroduodenoscopy Hx of right BKA Family History (Updated 12/25/21 @ 08:47 by Janet Garcia RN) Family history of stroke Family history of cancer Family history of hypothyroidism Family history of diabetes mellitus type II Social History (Updated 12/25/21 @ 08:48 by Janet Garcia RN) Smoking Status: Never smoker second hand exposure: No alcohol intake: never substance use type: denies use current occupational status: retired Travel in the last 8 weeks: None adopted: No caregiver/support person: No foster care: No household members: none housing: house lives independently: Yes marital status: single education level: high school current occupation: Retired current occupational exposures/hazards: No caffeine: Yes special rey needs: No agree to transfusion: No do you feel safe at home: Yes victim of physical abuse: No victim of emotional abuse: No victim of sexual abuse: No would you like helpful sources: No Meds Home Medications and Allergies Home Medications Medication Instructions Recorded Confirmed Type celecoxib 200 mg capsule 200 mg PO DAILY Pain 02/18/17 12/25/21 History duloxetine 30 mg capsule,delayed 30 mg PO DAILY HIP PAIN 02/18/17 12/25/21 History release metoclopramide HCl 10 mg tablet 10 mg PO QID stomach 02/18/17 12/25/21 History wpwooxdh-llcxgkj-maue-lutein tablet 1 mcg PO DAILY Supplement 02/18/17 12/25/21 History nystatin 100,000 unit/gram topical 1 applic topical BID stump care 02/18/17 12/25/21 History cream omeprazole 40 mg capsule,delayed 40 mg PO DAILY stomach 02/18/17 12/25/21 History release psyllium husk 3.4 gram/5.4 gram 1 tbsp PO DAILY bowels 02/18/17 12/25/21 History oral powder (Metamucil) tizanidine 2 mg capsule 2 mg PO QID muscles 02/18/17 08/06/21 History loratadine 10 mg tablet 10 mg PO DAILY ALLERGIES 12/05/17 12/25/21 History polyethylene glycol 3350 17 gram 34 gm PO DAILY CONSTIPATION 12/05/17 12/25/21 History oral powder packet ondansetron 8 mg disintegrating 8 mg PO TIDP PRN Nausea And 12/08/17 12/25/21 Rx tablet Vomiting #20 tabs New Prescriptions to Start Prescriptions: Allergies Allergy/AdvReac Type Severity Reaction Status Date / Time milk Allergy Mild Vomiting Verified 08/06/21 09:12 promethazine [From Phenergan] Allergy Mild whole body Verified 08/06/21 09:12 aches eggs Allergy Intermediate Vomiting Uncoded 08/06/21 09:12 Exam Data for Last 24 hours Vital signs and Labs for Last 24 Hours: Temp Pulse Resp BP P
--- NOTE | 2021-12-25 10:28 | EXP.ANES.CKL ---
PFSH PFSH Medical History (Updated 12/25/21 @ 08:44 by Janet Garcia RN) History of throat cancer Migraine Surgical History (Updated 12/25/21 @ 08:46 by Janet Garcia RN) History of hand surgery Hx laparoscopic cholecystectomy Hx of esophagogastroduodenoscopy Hx of right BKA Family History (Updated 12/25/21 @ 08:47 by Janet Garcia, RN) Other Family history of cancer Family history of diabetes mellitus type II Family history of hypothyroidism Family history of stroke Social History (Updated 12/25/21 @ 08:48 by Janet Garcia, RENE) Smoking Status: Never smoker second hand exposure: No alcohol intake: never substance use type: denies use current occupational status: retired Travel in the last 8 weeks: None adopted: No caregiver/support person: No foster care: No household members: none housing: house lives independently: Yes marital status: single education level: high school current occupation: Retired current occupational exposures/hazards: No caffeine: Yes special rey needs: No agree to transfusion: No do you feel safe at home: Yes victim of physical abuse: No victim of emotional abuse: No victim of sexual abuse: No would you like helpful sources: No [facility] Anesthesia Checklist Patient Identification Patient Identification: Arm Band and Verbal (Name & ) Structural Data Admitted From: Home Planned Operative Procedure/s: EGD Verified Documents: Surgical Consent NPO Status Verified Time NPO: 00:00 Additional verifications Anesthesia Reactions: No Hx Blood Transfusions: No Blood Transfusion Reaction: No Airway Assessment C-Spine Mobility Assessed: Yes TMJ Mobility Assessed: Yes Dentition: Good Dentition Neurological Assessment Level of Consciousness: Awake, Alert and Appropriate Anesthesia Plan Anesthesia Risk discussed: Yes ASA Class: II Anesthesia Type: MAC
[2021-12-25 10:34] VITALS: O2SAT 98
--- NOTE | 2021-12-25 10:59 | HMH.SCOPE ---
Procedure: Date: 12/25/21 Patient Date of :: 1950 Procedure Performed:: Esophagogastroduodenoscopy with biopsies and dilatation Indications:: Patient presents for follow-up upper endoscopy.? She is a 71-year-old female with a history of esophageal carcinoma for which she underwent chemotherapy and radiation in 2006.? Apparently due to side effects she was unable to complete chemotherapy.? She has had numerous, approximately 22, upper endoscopies over the subsequent years performed by a variety of physicians.? 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 She has had some occasional symptoms of dysphagia and has seen Dr. Perez.? Last EGD I had performed was on 07/24/2021 which revealed cricopharyngeal spasm, esophageal dysmotility and presbyesophagus, findings of radiation-induced esophagitis between 18 and 30 cm with some findings of erosive ulcerative esophagitis.? There was some narrowing at 30 cm.? She had some findings of Medina's esophagus.? There was moderate sliding hiatal hernia.? There were gastric fundic gland polyps.? She actually had dilatation performed.? Due to the findings and ulcerative esophagitis with distal narrowing plan was made for follow-up endoscopy in 6 months. Performing Provider:: Jam Palmer MD Referring Provider:: Wicho De La Cruz MD Sedation:: MAC sedation Procedure:: Patient was taken to endoscopy procedure room. She was positioned in lateral decubitus position. Adequate intravenous sedation was achieved with anesthesia titration of propofol. Olympus endoscope was inserted via the oropharynx. Esophagus was cannulated. There were findings of cricopharyngeal spasm. Esophagus overall revealed findings of dysmotility and presbyesophagus. There were findings of radiation-induced esophagitis between approximately 18 and 30 cm. There was patchy erosive ulcerative esophagitis. At 30 cm once again there was some luminal narrowing and initially the endoscope was not able to be advanced. This was dilated using the pneumatic dilator from 15 to 18 mm. Endoscope was then able to be advanced into the gastric lumen. Retroflexion revealed moderate to large sliding hiatal hernia. There was evidence of some superficial erosive antral gastritis. Biopsies were obtained. Pylorus was traversed and the duodenum appeared unremarkable. Endoscope was withdrawn into the distal esophagus and several biopsies were obtained at the gastroesophageal junction. Distal esophageal mid esophageal and proximal esophageal biopsies were obtained in the area of likely radiation-induced esophagitis where there were patchy erosions and ulceration. Endoscope was withdrawn. 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 Likely will need ongoing surveillance EGD approximately every 6 months given her progressive pathology. However, given the progressively more complex pathology she may require gastroenterology evaluation. Complications:: None immediately apparent Estimated blood obtained (mL): 4
[2021-12-25 11:02] VITALS: BP 112/50; PULSE 101; RESP 18; TEMP 36.2; O2SAT 93
[2021-12-25 11:12] VITALS: BP 106/73; PULSE 82; RESP 18; O2SAT 97
[2021-12-25 11:22] VITALS: BP 133/73; PULSE 80; RESP 18; O2SAT 97
[2021-12-25 11:45] VITALS: BP 127/79; PULSE 78; RESP 18; O2SAT 97
== END 2021-12-25 11:53 | disposition home or self-care (01) ==
PROVIDERS: PCP Family Medicine; Visit Provider Surgery
PROC: 0DJ08ZZ Inspection of Upper Intestinal Tract, Via Natural or Artificial Opening Endoscopic (ICD-10-PCS; CPT 43235; principal; 2021-12-25 09:30)
DX: K22.70 Barrett's esophagus without dysplasia; Z85.01 Personal history of malignant neoplasm of esophagus; K29.50 Unspecified chronic gastritis without bleeding; Z79.899 Other long term (current) drug therapy
CPT/HCPCS: 43239; 43249; 88305; 88312; 88313; 88342; C1726

== ENCOUNTER → 2022-04-29 14:03 | Outpatient (CLI) | payer MEDICARE, OTHER, SELFPAY ==
--- NOTE | 2022-04-29 14:11 | XR_ITS ---
FINAL REPORT CLINICAL HISTORY: ACUTE PAIN OF LEFT KNEE FINDINGS: LEFT KNEE Four views of the left knee reveal no evidence of fracture or dislocation. The bony alignment is normal. There are mild degenerative changes. There is a small joint effusion. No localized soft tissue abnormality is seen. IMPRESSION: Mild degenerative change with a small joint effusion. No acute bony abnormality. Reviewed, Interpreted and Dictated by Jam Akbar III, MD Transcribed by Melita Dodd Authenticated and [facility]
== END ==
PROVIDERS: PCP Family Medicine; Visit Provider Family Medicine
DX: M25.562 Pain in left knee (principal)
CPT/HCPCS: 73562

== ENCOUNTER → 2022-05-10 06:32 | Outpatient (CLI) | payer MEDICARE, OTHER, SELFPAY ==
--- NOTE | 2022-05-10 07:34 | MR_ITS ---
FINAL REPORT TECHNIQUE: Multiplanar and multisequence imaging the right knee was obtained without contrast. CLINICAL HISTORY: ACUTE PAIN OF LEFT KNEE. PATIENT FELL ON LEFT KNEE 2WEEKS AGO. MEDIAL SIDED KNEE PAIN. KNEE INSTABILITY. FINDINGS: Bones: There is bone marrow edema in the medial femoral condyle and medial tibial plateau, favor bone contusions. There is no fracture. There is degenerative joint disease, most pronounced in the medial compartment where there is chondromalacia. There are no full thickness cartilage defects. Menisci: Horizontal tear of the body of the medial meniscus. Radial tear near the meniscal tibial root attachment. Lateral meniscus intact. Ligaments: Sprain of the medial collateral ligament. No cruciate or collateral ligament tear is present. Tendons/Muscles: Very small, intrasubstance tear of the lateral quadriceps tendon. Majority of the quadriceps tendon remains intact. Patellar tendon intact. The biceps femoris tendon and iliotibial tract are intact. The popliteus tendon is normal. Other: There is a large joint effusion. Diffuse soft tissue edema is seen. Remaining soft tissues are normal. IMPRESSION: 1. Bone contusions of the medial femoral condyle and medial tibial plateau. No fracture. 2. Tear of the posterior horn of the medial meniscus with radial tear near the meniscotibial root attachment. 3. MCL sprain. 4. Small, partial quadriceps tendon tear. Reviewed, Interpreted and Dictated by Eliana Delacruz MD Transcribed by Iliana Da Silva Authenticated and [facility]
== END ==
PROVIDERS: PCP Family Medicine; Visit Provider Family Medicine
DX: M25.562 Pain in left knee (principal); M25.462 Effusion, left knee; S83.207A Unspecified tear of unspecified meniscus, current injury, left knee, initial encounter
CPT/HCPCS: 73721

== ENCOUNTER 2022-05-28 07:40 | Day surgery (SDC) | payer MEDICARE, OTHER, SELFPAY ==
[2022-05-26 17:19] VITALS: BMI 28.3
[2022-05-28 08:17] VITALS: BP 134/64; PULSE 93; RESP 18; TEMP 36.1; O2SAT 96
--- NOTE | 2022-05-28 08:43 | P.PN_ITS ---
[facility] Disclaimer: The information contained in this section may have been updated after the patient was seen, as this information can be updated by other users. Medical History History of throat cancer Migraine Surgical History History of hand surgery Hx laparoscopic cholecystectomy Hx of esophagogastroduodenoscopy Hx of right BKA Family History Other Family history of cancer Family history of diabetes mellitus type II Family history of hypothyroidism Family history of stroke Social History Smoking Status: Never smoker second hand exposure: No alcohol intake: never substance use type: denies use current occupational status: retired Travel in the last 8 weeks: None adopted: No caregiver/support person: No foster care: No household members: none housing: house lives independently: Yes marital status: single education level: high school current occupation: Retired current occupational exposures/hazards: No caffeine: Yes special rey needs: No agree to transfusion: No do you feel safe at home: Yes victim of physical abuse: No victim of emotional abuse: No victim of sexual abuse: No would you like helpful sources: No [facility] Anesthesia Checklist Patient Identification Patient Identification: Arm Band and Verbal (Name & ) Structural Data Admitted From: Home Planned Operative Procedure/s: EGD Consent for Planned Operative Procedure(s) Verified: Yes NPO Status Verified Time NPO: 00:00 Additional verifications Anesthesia Reactions: No Hx Blood Transfusions: No Blood Transfusion Reaction: No Airway Assessment C-Spine Mobility Assessed: Yes TMJ Mobility Assessed: Yes Dentition: Good Dentition Neurological Assessment Level of Consciousness: Awake Hx Seizures: No Numbness or tingling in extremities: No Anesthesia Plan Anesthesia Risk discussed: Yes Anesthesia Plan: Verified ASA Class: III Anesthesia Type: MAC
[2022-05-28 08:53] VITALS: O2SAT 96
--- NOTE | 2022-05-28 09:15 | HMH.SCOPE ---
Procedure: Date: 05/28/22 Patient Date of :: 1950 Procedure Performed:: Esophagogastroduodenoscopy with biopsies and dilatation gastroesophageal junction 15 to 18 mm diameter using the balloon dilator Indications:: Patient presents for scheduled EGD.? She is a 71-year-old female with a history of esophageal carcinoma for which she underwent chemotherapy and radiation in 2006.? Apparently due to side effects she was unable to complete chemotherapy.? She has had numerous, now approximately 24, upper endoscopies over the subsequent years performed by a variety of physicians.? 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 She has had some occasional symptoms of dysphagia and has seen Dr. Perez.? EGD performed on 12/25/2021 revealed cricopharyngeal spasm, findings of presbyesophagus with esophageal dysmotility, gastroesophageal junction at 30 cm, findings of radiation-induced esophagitis from 18 to 30 cm with some exudative erosive/ulcerative esophagitis, luminal narrowing at 30 cm which was dilated from 15 to 18 mm using the pneumatic dilator, moderately large sliding hiatal hernia, superficial antral erosive gastritis.? Gastric biopsies revealed acute on chronic gastritis with ulceration and features compatible with healing erosion. ? She had intestinal metaplasia at the GE junction.? Mid and distal esophageal biopsies revealed acute esophagitis with ulceration and proximal biopsies revealed mild reactive/reflux related changes.? Given the complex progressive endoscopic findings on endoscopy on proton pump inhibitors plan was made for follow-up endoscopy with possible dilatation in 6 months. Performing Provider:: Jam Palmer MD Referring Provider:: Wicho De La Cruz MD Sedation:: MAC sedation Procedure:: Patient was taken to endoscopy procedure room. She was positioned in lateral decubitus position. Adequate intravenous sedation was achieved with anesthesia titration propofol. Olympus endoscope was inserted via the oropharynx. There was some appreciable cricopharyngeal narrowing. Endoscope was advanced into the esophagus. There were findings of some mild presbyesophagus consistent with esophageal dysmotility. She had findings of chronic esophagitis between approximately 15 and 30 cm with some exudate present consistent with erosive exudative esophagitis. Gastroesophageal junction was encountered at 30 cm and there was some luminal narrowing. The endoscope was able to be advanced into the gastric lumen. There was a moderate to moderately large sliding hiatal hernia with polyp present in the proximal stomach. There was some diffuse gastropathy. This appeared to be improved from previous upper endoscopy as there were no erosions. Pylorus was traversed and duodenum appeared unremarkable. Endoscope was withdrawn into the gastric lumen and a couple of biopsies were obtained. Biopsy was obtained of the gastric polyp in the fundus. This appeared somewhat atypical for typical fundic gland polyp. Couple biopsies were obtained at the gastroesophageal junction at 30 cm. Biopsies were obtained of the esophagus at 28 cm, 25 cm, and 20 cm and sent as separate specimens. The gastroesophageal junction was then dilated sequentially using the pneumatic dilator from 15-16.5-18 mm luminal diameter using the balloon dilator. Stomach was desufflated and the endoscope was withdrawn. Findings:: Cricopharyngeal narrowing Findings of presbyesophagus with esophageal dysmotility Chronic esophagitis between 15 and 30 cm with some exudative esophagitis Luminal narrowing at gastroesophageal junction at 30 cm Moderately large sliding hiatal hernia Minimal diffuse gastropathy Polyp in fundus Recommendations:: Continue current medical regimen. I will follow-up on the histopathology. Given her progressive pathology may require evaluation with gastroenterology. Complications:: None immediately apparen
[2022-05-28 09:18] VITALS: BP 82/58; PULSE 97; RESP 14; TEMP 36.1; O2SAT 92
[2022-05-28 09:28] VITALS: BP 108/68; PULSE 93; RESP 16; O2SAT 91
[2022-05-28 09:38] VITALS: BP 130/76; PULSE 86; RESP 17; O2SAT 94
[2022-05-28 09:48] VITALS: BP 144/87; PULSE 80; RESP 16; O2SAT 96
== END 2022-05-28 10:10 | disposition home or self-care (01) ==
PROVIDERS: PCP Family Medicine; Visit Provider Surgery
PROC: 0DJ08ZZ Inspection of Upper Intestinal Tract, Via Natural or Artificial Opening Endoscopic (ICD-10-PCS; CPT 43235; principal; 2022-05-28 09:00)
DX: R13.10 Dysphagia, unspecified (principal); Z85.01 Personal history of malignant neoplasm of esophagus; Z79.899 Other long term (current) drug therapy; K20.90 Esophagitis, unspecified without bleeding; K44.9 Diaphragmatic hernia without obstruction or gangrene
CPT/HCPCS: 43239; 43249; 88305; 88312; C1726

== ENCOUNTER 2022-09-07 08:10 | Day surgery (SDC) | payer MEDICARE, OTHER, SELFPAY ==
[2022-09-07 10:05] VITALS: BP 134/81; PULSE 77; RESP 18; TEMP 36.2; O2SAT 95; BMI 26.6
[2022-09-07 10:25] LABS: POC Glucose,Bedside 91 (70-110)
[2022-09-07 10:53] VITALS: BP 124/58; PULSE 69; RESP 17; O2SAT 99
[2022-09-07 10:58] VITALS: BP 122/59; PULSE 70; RESP 16; O2SAT 100
[2022-09-07 11:03] VITALS: BP 120/59; PULSE 70; RESP 16; O2SAT 100
[2022-09-07 11:10] VITALS: BP 115/58; PULSE 85; RESP 17; O2SAT 97
== END 2022-09-07 11:30 | disposition home or self-care (01) ==
PROVIDERS: PCP Family Medicine; Visit Provider Ophthalmology
DX: E11.36 Type 2 diabetes mellitus with diabetic cataract (principal); H25.9 Unspecified age-related cataract
CPT/HCPCS: 66984; 82962; V2632

== ENCOUNTER 2022-09-21 06:34 | Day surgery (SDC) | payer MEDICARE, OTHER, SELFPAY ==
[2022-09-16 12:14] VITALS: BMI 26.6
[2022-09-21] VITALS (8 sets, daily range): BP systolic 118–135; BP diastolic 56–72; PULSE 74–82; RESP 16–18; TEMP 36.2–36.6; O2SAT 98–100
[2022-09-21 08:05] LABS: POC Glucose,Bedside 102 (70-110)
== END 2022-09-21 10:22 | disposition home or self-care (01) ==
PROVIDERS: PCP Family Medicine; Visit Provider Ophthalmology
DX: E11.36 Type 2 diabetes mellitus with diabetic cataract (principal); H25.9 Unspecified age-related cataract
CPT/HCPCS: 66984; 82962; V2632

== ENCOUNTER → 2022-09-30 12:08 | Outpatient (CLI) | payer MEDICARE, OTHER, SELFPAY ==
[2022-09-30 13:20] LABS: Thyroid Stimulating Hormone 1.57 uIU/mL (0.465-4.68)
== END ==
PROVIDERS: PCP Family Medicine; Visit Provider Family Medicine
DX: R61 Generalized hyperhidrosis (principal)
CPT/HCPCS: 36415; 84443

== ENCOUNTER → 2022-10-27 12:03 | Outpatient (CLI) | payer MEDICARE, OTHER, SELFPAY ==
--- NOTE | 2022-10-27 12:07 | XR_ITS ---
FINAL REPORT CLINICAL HISTORY: RT SHOULDER PAIN,ARTHRITIS PAIN COMPARISON: 06/13/2017 FINDINGS: Right shoulder Four views were obtained. There is no acute fracture or dislocation. There is mild AC joint degenerative change. No soft tissue abnormality is identified. IMPRESSION: Mild AC joint degenerative change. Reviewed, Interpreted and Dictated by Jam Akbar III, MD Transcribed by Angela De La Garza Authenticated and [facility]
== END ==
PROVIDERS: PCP Family Medicine; Visit Provider Family Medicine
DX: M25.511 Pain in right shoulder (principal)
CPT/HCPCS: 73030

== ENCOUNTER 2022-11-26 07:58 | Day surgery (SDC) | payer MEDICARE, OTHER, SELFPAY ==
[2022-11-26] VITALS (8 sets, daily range): BP systolic 120–132; BP diastolic 61–81; PULSE 75–93; RESP 16–19; TEMP 36.4–36.6; O2SAT 93–98; BMI 26.6
[2022-11-26 08:42] LABS: POC Glucose,Bedside 106 (70-110)
--- NOTE | 2022-11-26 08:54 | HMH.SCOPE ---
Procedure: Date: 11/26/22 Patient Date of :: 1950 Procedure Performed:: Esophagogastroduodenoscopy with biopsy and dilatation using pneumatic dilator to 13.5 mm Indications:: Patient is a 72-year-old female who has had approximately 24 previous upper endoscopies over the past 15 to 16 years. She has a history of esophageal cancer diagnosed 2006 and she underwent chemotherapy and radiation without resection. She was however unable to complete chemotherapy due to side effects. She has had approximately 24 or 25 previous upper endoscopies by a variety of physicians. Last upper endoscopy I had performed on 05/28/2022. She was found to have some cricopharyngeal narrowing and findings consistent with esophageal dysmotility and presbyesophagus. There is chronic esophagitis between 15 and 30 cm with some exudative esophagitis. Luminal narrowing was at the gastroesophageal junction at 30 cm with a moderately large sliding hiatal hernia. There was fundic gland polyp and diffuse gastropathy. She did have dilatation performed sequentially using the pneumatic dilator up to 18 mm. She was found to have intestinal metaplasia at 28 cm from the incisors. Remaining distal esophageal biopsies revealed reactive changes. Tentative plan was for repeat upper endoscopy 6 months. It was felt that if the patient's symptoms remain refractory or she develops progressive pathology on endoscopy she may need to be seen by gastroenterology. When the patient was taken to the procedure room for planned EGD she had lost her IV access which had to be originally placed using ultrasound. Repeated use with ultrasound was unable to successfully locate and obtain traditional IV access and patient ultimately required placement of a midline to have the procedure done. Performing Provider:: Jam Palmer MD Referring Provider:: Wicho De La Cruz MD Sedation:: MAC sedation Procedure:: Patient history was obtained and appropriate physical examination was performed. Patient's medications and allergies were reviewed. Informed consent was obtained after explaining the benefits, alternatives, and risks of the procedure including, but not limited to, bleeding, perforation, missed lesions, and adverse reaction to anesthesia medications. Patient was transported to endoscopy procedure room. Patient was connected to monitoring devices. Throughout the procedure the patient's blood pressure, pulse, and oxygen saturations were monitored continuously. Patient identification and planned procedure were verified by the staff. Patient was positioned in lateral decubitus position. Olympus endoscope was inserted via the oropharynx. There was some cricopharyngeal spasm. Esophagus was cannulated. There was some tortuosity to the esophagus consistent with esophageal dysmotility. Between 15 and 30 cm there was some exudative esophagitis. At the gastroesophageal junction at approximately 30 cm there were findings consistent with Medina's esophagus. Several biopsies were obtained. There was a tight stricture at the gastroesophageal junction diffusely at approximately 30 cm. Endoscope could not be advanced beyond this. 12 to 15 mm elation balloon dilator was inserted through the stricture. This was dilated initially to 12 mm and then slightly to 13.5. Stricture was rather tight and it was felt that dilation beyond 13.5 was unsafe. With some difficulty the endoscope was advanced beyond the stricture into the hiatal hernia. There was some minor mucosal oozing likely from the balloontipped insertion but no evidence of any definite perforation. This area appeared hemostatic. It was felt that it was unsafe and technically difficult to advance the endoscope beyond this. Stomach was desufflated and the endoscope was withdrawn. . Findings:: Esophageal dysmotility Erosive esophagitis between approximately 15 and 30 cm. Probable Medina's esophagus at the gastroesophageal junction, biopsied Sev
--- NOTE | 2022-11-26 09:34 | SUR.OPER ---
Pt's IV stopped working as we started anesthesia. Unable to start a new IV. MD aware. Decision made to start a midline. Pt taken back out of scope room to start midline. Pt and MD ok with this. Procedure on hold this time pending new IV start.
--- NOTE | 2022-11-26 13:57 | EXP.ANES.CKL ---
[facility] Disclaimer: The information contained in this section may have been updated after the patient was seen, as this information can be updated by other users. Medical History (Updated 11/26/22 @ 08:25 by Simon Salvador RN) Diabetes History of throat cancer Migraine Surgical History History of hand surgery Hx laparoscopic cholecystectomy Hx of esophagogastroduodenoscopy Hx of right BKA Family History Other Family history of cancer Family history of diabetes mellitus type II Family history of hypothyroidism Family history of stroke Social History Smoking Status: Never smoker second hand exposure: No alcohol intake: never substance use type: denies use current occupational status: retired Travel in the last 8 weeks: None adopted: No caregiver/support person: No foster care: No household members: none housing: house lives independently: Yes marital status: single education level: high school service: No residential: No current occupation: Retired current occupational exposures/hazards: No caffeine: Yes special rey needs: No agree to transfusion: No do you feel safe at home: Yes victim of physical abuse: No victim of emotional abuse: No victim of sexual abuse: No would you like helpful sources: No [facility] Anesthesia Checklist Patient Identification Patient Identification: Arm Band and Verbal (Name & ) Structural Data Admitted From: Home Planned Operative Procedure/s: EGD Consent for Planned Operative Procedure(s) Verified: Yes Verified Documents: Surgical Consent and History and Physical Additional verifications Fingerstick Blood Glucose: 106 Patient : No Anesthesia Reactions: No Hx Blood Transfusions: No Blood Transfusion Reaction: No Cephalosporin Allergy: No Previous Colonoscopy: No Cardiovascular Assessment Heart Sounds: S1 & S2 Pulse Rhythm: Irregular Peripheral Edema: Yes Airway Assessment Mallampati Score:: Class II C-Spine Mobility Assessed: Yes TMJ Mobility Assessed: Yes Dentition: Poor Dentition (Many missing. +Carried teeth. Nothing loose per pt.) Neurological Assessment Level of Consciousness: Awake, Alert and Appropriate Hx Seizures: No Numbness or tingling in extremities: No Anesthesia Plan Anesthesia Risk discussed: Yes Anesthesia Plan: Verified ASA Class: III Anesthesia Type: MAC
--- NOTE | 2022-11-26 14:07 | EXP.ANES.I ---
[facility] Anesthesia Record Part I Anesthesia Record I Intake, IV Amount: 500 Hydration: Adequate Estimated blood loss (mL): 1 Urine output (mL): 0 Blood Products used (#): none Blood Pressure: 120/61 SaO2: 93 Pulse Rate: 92 Airway Patency: Patent Respiratory Rate: 16 Temperature: 97.8 F Patient is:: Awake (Talking) and Stable Stable to PACU at:: 11:16
== END 2022-11-26 11:50 | disposition home or self-care (01) ==
PROVIDERS: PCP Family Medicine; Visit Provider Surgery
PROC: 0DJ08ZZ Inspection of Upper Intestinal Tract, Via Natural or Artificial Opening Endoscopic (ICD-10-PCS; CPT 43235; principal; 2022-11-26 09:30)
DX: K22.4 Dyskinesia of esophagus (principal); Z85.01 Personal history of malignant neoplasm of esophagus; K44.9 Diaphragmatic hernia without obstruction or gangrene; K22.10 Ulcer of esophagus without bleeding; E11.9 Type 2 diabetes mellitus without complications
CPT/HCPCS: 43239; 43249; 82962; 88305; 88342; C1726

== ENCOUNTER 2022-12-08 07:40 | Day surgery (SDC) | payer MEDICARE, OTHER, SELFPAY ==
[2022-12-03 11:39] VITALS: BMI 29.1
[2022-12-08 08:09] VITALS: BP 125/59; PULSE 82; RESP 18; TEMP 36.3; O2SAT 97
--- NOTE | 2022-12-08 09:33 | HMH.SCOPE ---
Procedure: Date: 12/08/22 Patient Date of :: 1950 Procedure Performed:: EGD Indications:: The patient is a 72 year old who presents for EGD for chronic esophageal stricture. The patient has a history or esophageal cancer in 2006 treated with chemoradiation without resection. The patient was apparently unable to complete chemotherapy secondary to intolerance of treatment. The patient has had multiple esophageal dilatations since that time for esophageal stricture. Her more recent esophageal dilatations have been performed by Dr. Palmer. She has a history of Medina's esophagus and is treated with Nexium 40 mg daily. Her last EGD was approximately [address] Palmer. The patient had a tight stricture that was dilated up to 13.5 mm. Performing Provider:: Candelario Cowan MD Referring Provider:: Jam Palmer MD Sedation:: See RN records Procedure:: The gastroscope was gently passed through the incisoral orifice into the oral cavity and under direct visualization the esophagus was intubated. The endoscope was passed down the esophagus, through the stomach, and into the duodenum. Color, texture, mucosa, and anatomy of the esophagus, stomach, and duodenum were carefully examined with the scope. Findings:: Oropharynx: normal Esophagus: At 28 cm there was an area of ulceration and mild stenosis. The gastroscope was able to be pushed gently pass this area. Biopsies were obtained. There was a benign appearing stricture at 30 cm and a tongue of salmon colored mucosa atleast 1 cm in length. Biopsies were obtained. The gastroscope scope was unable to pass the GE junction. Balloon dilation was performed with 8-10 mm balloon. There was no apparent mucosal injury or bleeding post dilation. Further dilatation was performed with 12-15 mm tts balloon. EG Junction: Measured approximately 30 cm Cardia: Large hiatal hernia, approximately 5-6 cm in size Fundus: Few scattered small fundic gland polyps Body: normal Antrum: normal Duodenal bulb: normal Duodenum (second and third portion): normal Recommendations:: Await pathology results Increase esomeprazole to 40 mg two times per day Carafate suspension 1 g (10 ml) four times per day Will discuss with patient consideration of referral to a tertiary center, possible discussion for esophageal stent due to chronic esphageal stricture Repeat EGD in 3 months Complications:: None Estimated blood obtained (mL): 0 Colonoscopy Component Colonoscopy Component Was a colonoscopy performed during today's procedure?: No
[2022-12-08 09:35] VITALS: BP 104/53; PULSE 98; RESP 14; TEMP 36.6; O2SAT 93
[2022-12-08 09:45] VITALS: BP 112/60; PULSE 64; RESP 16; O2SAT 91
[2022-12-08 09:55] VITALS: BP 109/57; PULSE 89; RESP 16; O2SAT 94
[2022-12-08 10:05] VITALS: BP 130/71; PULSE 86; RESP 16; TEMP 36.6; O2SAT 95
[2022-12-09 07:29] LABS: POC Glucose,Bedside 103 (70-110)
== END 2022-12-08 10:25 | disposition home or self-care (01) ==
PROVIDERS: PCP Family Medicine; Visit Provider Internal Medicine
PROC: 0DJ08ZZ Inspection of Upper Intestinal Tract, Via Natural or Artificial Opening Endoscopic (ICD-10-PCS; CPT 43235; principal; 2022-12-08 09:00)
DX: K22.2 Esophageal obstruction (principal); Z85.01 Personal history of malignant neoplasm of esophagus; K44.9 Diaphragmatic hernia without obstruction or gangrene; K22.89 Other specified disease of esophagus; E11.9 Type 2 diabetes mellitus without complications
CPT/HCPCS: 43239; 43249; 82962; 88305; 88342; C1726

== ENCOUNTER 2023-05-13 10:47 | Day surgery (SDC) | payer MEDICARE, OTHER, SELFPAY ==
[2023-05-10 15:45] VITALS: BMI 26.9
[2023-05-13 11:11] VITALS: BP 133/74; PULSE 88; RESP 18; TEMP 36.7; O2SAT 95
[2023-05-13] MEDS: LACTATED RINGERS 1000ML 1,000 ML 25 ML IV (11:15)
[2023-05-13 11:30] LABS: POC Glucose,Bedside 97 (70-110)
--- NOTE | 2023-05-13 14:13 | P.PNANES_ITS ---
[facility] Disclaimer: The information contained in this section may have been updated after the patient was seen, as this information can be updated by other users. Medical History Diabetes Migraine History of throat cancer Surgical History Hx laparoscopic cholecystectomy Hx of esophagogastroduodenoscopy Hx of right BKA History of hand surgery Family History Other Family history of cancer Family history of diabetes mellitus type II Family history of hypothyroidism Family history of stroke Social History Smoking Status: Never smoker second hand exposure: No alcohol intake: never substance use type: denies use current occupational status: retired Travel in the last 8 weeks: None adopted: No caregiver/support person: No foster care: No household members: none housing: house lives independently: Yes marital status: single education level: high school service: No jail: No current occupation: Retired current occupational exposures/hazards: No caffeine: No special rey needs: No agree to transfusion: No do you feel safe at home: Yes victim of physical abuse: No victim of emotional abuse: No victim of sexual abuse: No would you like helpful sources: No [facility] Anesthesia Checklist Patient Identification Patient Identification: Arm Band Structural Data Admitted From: Home Planned Operative Procedure/s: EGD Consent for Planned Operative Procedure(s) Verified: Yes Verified Documents: Surgical Consent and History and Physical NPO Status Verified Time NPO: 00:00 Additional verifications Anesthesia Reactions: No Hx Blood Transfusions: No Blood Transfusion Reaction: No Airway Assessment Mallampati Score:: Class II C-Spine Mobility Assessed: Yes TMJ Mobility Assessed: Yes Dentition: Good Dentition (Lower Partial Removed) Neurological Assessment Level of Consciousness: Awake and Alert Anesthesia Plan Anesthesia Risk discussed: Yes Anesthesia Plan: Verified ASA Class: II Anesthesia Type: MAC
--- NOTE | 2023-05-13 14:26 | P.PCN_ITS ---
Procedure: Date: 05/13/23 Patient Date of :: 1950 Procedure Performed:: Esophagogastroduodenoscopy with biopsy and dilatation using pneumatic dilator to approximately 13.5 mm Indications:: Patient is a 72-year-old female who has had approximately 26 previous upper endoscopies over the past 16 or 17 years. She has a history of esophageal carcinoma diagnosed in 2006 and underwent chemotherapy and radiation without resection. However she was unable to complete chemotherapy due to side effects. She has previously been found to have some cricopharyngeal narrowing and presbyesophagus consistent with esophageal dysmotility with chronic esophagitis between 15 to 30 cm with some exudate. She has had inflammatory benign luminal narrowing at the gastroesophageal junction and has undergone previous di latation. I had performed upper endoscopy on 05/28/2022 with dilatation to 18 mm. I had attempted a follow-up endoscopy November 26, 2022 at which time she had severe narrowing of the distal esophagus and the endoscope could not be advanced into the stomach. Area was dilated using the pneumatic dilator to 13.5 mm. I felt that she may benefit from upper endoscopy and dilatation possibly with gastroenterology given the complexity of her disease process. Dr. Cowan performed EGD on 12/08/2022 at which time she was able to be dilated using the pneumatic dilator to 15 mm. At that time it was noted that she had GE junction at 30 cm. She did have a large sliding hiatal hernia with a few scattered fundic gland polyps. It was recommended she increase her as omeprazole to 40 mg twice a day, Carafate 1 g 4 times a day. Discussed possible referral to tertiary facility with potential esophageal stenting with recommended repeat colonoscopy 3 months. Patient wished to continue to have endoscopy performed at this facility. She states that she has been back on her baseline proton pump inhibitor and had only taken the Carafate for about 1 month. . Performing Provider:: Jam Palmer MD Referring Provider:: Atilio Motta MD Sedation:: MAC sedation Procedure:: Patient history was obtained and appropriate physical examination was performed. Patient's medications and allergies were reviewed. Informed consent was obtained after explaining the benefits, alternatives, and risks of the procedure including, but not limited to, bleeding, perforation, missed lesions, and adverse reaction to anesthesia medications. Patient was transported to endoscopy procedure room. Patient was connected to monitoring devices. Throughout the procedure the patient's blood pressure, pulse, and oxygen saturations were monitored continuously. Patient identification and planned procedure were verified by the staff. Patient was positioned in lateral decubitus position. Olympus endoscope was inserted via the oropharynx. There appeared to be a nonobstructing web and spasm at the cricopharyngeal area. There was diffuse moderate to moderately severe esophagitis with exudate distally. Gastroesophageal junction was encountered at 30 cm. It was profoundly narrowed and the colonoscope could not be advanced. Using the elevation balloon dilator it was dilated initially to 10 mm then 11 mm and 12 mm. It was still quite tight. However the endoscope was able to be advanced into the large hiatal hernia. 12 to 15 mm elation balloon dilator was then inserted through the endoscope. Gastroesophageal junction was dilated initially to 12 mm then to 13.5mm at 6.5 mary pressure. Dilatation was performed slightly above 13.5 but not to 15 mm. Balloon was deflated. Endoscope was not advanced well into the gastric lumen due to the tight gastroesophageal junction. Several biopsies were obtained at the gastroesophageal junction where tissue was friable consistent with possible Medina's esophagus. Stomach was desufflated and the endoscope was withdrawn. . 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 Gastroesophageal junction at 30 cm from the incisors with significant luminal narrowing and stricture Large sliding hiatal hernia Fundic gland polyps Recommendations:: Once again I discussed with the patient the potential for referral to tertiary facility for consideration of alternative method of dilatation and potential stenting. Complications:: None immediately apparent Estimated blood obtained (mL): 1 Colonoscopy Component Colonoscopy Component Was a colonoscopy performed during today's procedure?: No
[2023-05-13 15:18] VITALS: BP 128/73; PULSE 95; RESP 16; TEMP 36.3; O2SAT 93
--- NOTE | 2023-05-13 15:22 | P.PNANES_ITS ---
[facility] Anesthesia Record Part I Anesthesia Record I Intake, IV Amount: 400 Hydration: Adequate Estimated blood loss (mL): 5 Urine output (mL): 0 Blood Products used (#): none Blood Pressure: 128/73 SaO2: 94 Pulse Rate: 97 Airway Patency: Patent Respiratory Rate: 16 Temperature: 97.3 F Patient is:: Awake (Talking) and Stable Stable to PACU at:: 15:23
[2023-05-13 15:23] VITALS: BP 128/73; PULSE 97; RESP 16; TEMP 36.3; O2SAT 94
[2023-05-13 15:28] VITALS: BP 139/66; PULSE 89; RESP 16; O2SAT 92
[2023-05-13 15:38] VITALS: BP 125/82; PULSE 85; RESP 16; O2SAT 93
== END 2023-05-13 15:43 | disposition home or self-care (01) ==
PROVIDERS: PCP Internal Medicine; Visit Provider Surgery
PROC: 0DJ08ZZ Inspection of Upper Intestinal Tract, Via Natural or Artificial Opening Endoscopic (ICD-10-PCS; CPT 43235; principal; 2023-05-13 12:30)
DX: K31.A0 Gastric intestinal metaplasia, unspecified (principal); K22.89 Other specified disease of esophagus; K22.4 Dyskinesia of esophagus; K31.7 Polyp of stomach and duodenum; K20.90 Esophagitis, unspecified without bleeding; K44.9 Diaphragmatic hernia without obstruction or gangrene
CPT/HCPCS: 43249; 82962; 88305; C1726

== ENCOUNTER 2023-05-27 12:22 | Outpatient (CLI) | payer MEDICARE, OTHER, SELFPAY ==
--- NOTE | 2023-05-27 12:23 | US_ITS ---
PROCEDURE: US TRANSVAGINAL CLINICAL INDICATION: post menopausal bleeding COMPARISON: No exams were available for comparison FINDINGS: Transvaginal sonographic images of the pelvis were obtained. UTERUS: 5.1cm x 2.7 cmx 3.1cm anteverted with a combined endometrial thickness of 5.4mm. LEFT OVARY: 2.5cmx1.2cmx1.3cm with a volume of 2.1ml. RIGHT OVARY: 2.2cmx 1.8 cmx1.3cm with a volume of 2.7ml. Both ovaries are seen and appear normal. Doppler flow to both ovaries are seen. There is no fluid in the cul-de-sac. IMPRESSION: 1. Anteverted uterus normal in shape and small in size. 2. The endometrium is 5.4 mm but in the transverse view it looks significantly thicker. It measures 0.84 cm deep by 2.3 cm in width. 3. There are some hyperechoic echoes within the endometrium. 4. Both ovaries are seen and appear heterogenous, slightly enlarged for postmenopausal. 5. No fluid in the cul-de-sac. Dictated by: Aba Robledo MD 05/28/2023 09:08 Aba Robledo MD in OV 05/28/2023 09:08
== END 2023-05-27 23:59 | disposition home or self-care (01) ==
LOC: RAD 12:23
PROVIDERS: PCP Internal Medicine; Visit Provider Obstetrics & Gynecology
DX: N95.0 Postmenopausal bleeding (principal)
CPT/HCPCS: 76830

== ENCOUNTER 2023-06-01 09:44 | Outpatient (CLI) | payer MEDICARE, OTHER, SELFPAY ==
[2023-06-01 10:23] LABS: Basophils # 0.1 K/mm3 (0-0.2); Basophils % 0.8 % (0.1-2.0); Eosinophils # 0.1 K/mm3 (0.0-0.4); Eosinophils % 1.5 % (0.1-12.0); Hematocrit 41.3 % (37.0-47.0); Hemoglobin 13.3 g/dL (12.2-16.2); Lymphocytes # 1.6 K/mm3 (0.7-4.5); Lymphocytes % 26.2 % (10-50); Mean Corpuscular HGB Conc 32.1 g/dL (31.8-35.4); Mean Corpuscular Hemoglobin 28.9 pg (27.0-31.2); Mean Platelet Volume 8.5 fl (7.4-10.4); Monocytes # 0.3 K/mm3 (0.1-1.0); Monocytes % 5.3 % (1.7-9.3); Neutrophils % 66.3 % (37.0-80.0); Platelet Count 223 K/mm3 (142-424); Red Blood Count 4.59 M/mm3 (4.20-5.40); Red Cell Distribution Width 14.3 % (11.5-17.5); White Blood Count 6.1 K/mm3 (4.8-10.8)
[2023-06-01 11:26] LABS: Alanine Aminotransferase 22 U/L (12-78); Albumin Level 4.1 g/dl (3.5-5.0); Albumin/Globulin Ratio 1.5 (1.1-1.8); Alkaline Phosphatase 100 U/L (38-126); Anion Gap 12.2 mEq/L (5-15); Aspartate Amino Transferase 30 U/L (14-36); Bilirubin,Total 0.5 mg/dl (0.2-1.3); Blood Urea Nitrogen 20 mg/dl (7-17); Calcium 9.6 mg/dl (8.4-10.2); Carbon Dioxide 29 mmol/L (22.0-30.0); Chloride 106 mmol/L (98-107); Estimated Glomerular Filt Rate 71 ml/min (>60); GFR (African American) 85 ML/MIN (>60); Globulin 2.7 g/dL (1.3-3.2); Glucose 108 mg/dl (74-100); Potassium 4.2 mmoL/L (3.5-5.1); Sodium 143 mmol/L (136-145); Total Protein,Serum 6.8 g/dl (6.3-8.2)
== END 2023-06-01 23:59 | disposition home or self-care (01) ==
LOC: LAB 09:45
PROVIDERS: PCP Internal Medicine; Visit Provider Obstetrics & Gynecology
DX: N95.0 Postmenopausal bleeding (principal)
CPT/HCPCS: 36415; 80053; 85025

== ENCOUNTER 2023-06-09 10:29 | Outpatient (CLI) | payer MEDICARE, OTHER, SELFPAY ==
--- NOTE | 2023-06-09 10:37 | XR_ITS ---
FINAL REPORT CLINICAL HISTORY: Acute knee pain COMPARISON: None FINDINGS: There is no acute fracture or dislocation. There is moderate joint space narrowing of the medial joint compartment. There is osteophyte formation along the undersurface of the patella. There is a small joint effusion present. IMPRESSION: Degenerative changes as above Reviewed, Interpreted and Dictated by Willie Mckeon MD Transcribed by REINALDO Adams Authenticated and [facility]
--- NOTE | 2023-06-09 10:37 | XR_ITS ---
FINAL REPORT CLINICAL HISTORY: Back pain fall a year ago FINDINGS: Thoracic spine: 3 views of the thoracic spine were obtained. There is no acute fracture. There are calcified subglandular breast implants noted. There is thoracic curvature convex to the right measuring approximately 20 degrees. There are anterior osteophyte formations of the mid thoracic spine. Lumbar spine: 3 views of the lumbar spine were obtained. There is no acute fracture. There is moderate to space narrowing of L4-L5 and L5-S1. There is minimal spondylolisthesis of L4 on L5 and L5 on S1. There is moderate facet sclerosis noted. IMPRESSION: Degenerative changes of the thoracic and lumbar spine as above. Reviewed, Interpreted and Dictated by Willie Mckeon MD Transcribed by REINALDO Adams Authenticated and [facility]
== END 2023-06-09 23:59 | disposition home or self-care (01) ==
PROVIDERS: PCP Internal Medicine; Visit Provider Internal Medicine
DX: M25.562 Pain in left knee (principal); M54.59 Other low back pain
CPT/HCPCS: 72084; 73560

== ENCOUNTER 2023-06-10 08:43 | Day surgery (SDC) | payer MEDICARE, OTHER, SELFPAY ==
[2023-06-10] MEDS: LACTATED RINGERS 1000ML 1,000 ML 25 ML IV (09:01)
[2023-06-10 09:05] VITALS: BP 135/63; PULSE 80; RESP 18; TEMP 36.3; O2SAT 98; BMI 27.1
[2023-06-10 09:48] LABS: POC Glucose,Bedside 97 (70-110)
--- NOTE | 2023-06-10 10:16 | EXP.ANES.CKL ---
[facility] Disclaimer: The information contained in this section may have been updated after the patient was seen, as this information can be updated by other users. Medical History Diabetes Migraine History of throat cancer Surgical History Hx laparoscopic cholecystectomy Hx of esophagogastroduodenoscopy Hx of right BKA History of hand surgery Family History Other Family history of cancer Family history of diabetes mellitus type II Family history of hypothyroidism Family history of stroke Social History Smoking Status: Never smoker second hand exposure: No alcohol intake: never substance use type: denies use current occupational status: retired Travel in the last 8 weeks: None adopted: No caregiver/support person: No foster care: No household members: none housing: house lives independently: Yes marital status: single education level: high school service: No fpc: No current occupation: Retired current occupational exposures/hazards: No caffeine: No special rey needs: No agree to transfusion: No do you feel safe at home: Yes victim of physical abuse: No victim of emotional abuse: No victim of sexual abuse: No would you like helpful sources: No [facility] Anesthesia Checklist Patient Identification Patient Identification: Arm Band and Verbal (Name & ) Structural Data Admitted From: Home Planned Operative Procedure/s: Hyst /D & C Consent for Planned Operative Procedure(s) Verified: Yes NPO Status Verified Time NPO: 00:00 Additional verifications Anesthesia Reactions: No Hx Blood Transfusions: No Blood Transfusion Reaction: No Airway Assessment Mallampati Score:: Class II C-Spine Mobility Assessed: Yes TMJ Mobility Assessed: Yes Dentition: Partials Neurological Assessment Level of Consciousness: Awake Hx Seizures: No Numbness or tingling in extremities: No Anesthesia Plan Anesthesia Risk discussed: Yes Anesthesia Plan: Verified ASA Class: II Anesthesia Type: MAC
[2023-06-10 11:11] VITALS: BP 119/76; PULSE 75; RESP 17; O2SAT 95
[2023-06-10] MEDS: OXYCODONE 5MG W/APAP 325MG TABLET 2 EACH PO (11:20)
[2023-06-10 11:21] VITALS: BP 100/78; PULSE 75; RESP 16; O2SAT 99
[2023-06-10 11:31] VITALS: BP 110/56; PULSE 74; RESP 16; O2SAT 99
--- NOTE | 2023-06-10 11:34 | SUR.OPER ---
1015- upon arrival into the OR, we found that her upper right arm IV was swelling, cold, and not running. We D/c'd the IV at this time and vanessa Cosby came to bedside to attempt another US IV on left upper arm. IV was patent, flushing, and not swelled at time of insertion. Pt stated that This was the last time that she was going to be stuck. Case was started at 1055. 10 minutes later the IV that was just placed began to blow so we aborted the case. IV was D/C'd.
[2023-06-10 11:41] VITALS: BP 119/60; PULSE 75; RESP 16; O2SAT 99
--- NOTE | 2023-06-10 11:55 | P.OP_ITS ---
Date of procedure: 06/10/23 Pre-op Diagnosis:: 1. Postmenopausal bleeding 2. Thickened endometrial stripe Post-op Diagnosis:: 1. Postmenopausal bleeding 2. Thickened endometrial stripe Procedure performed:: Exam under anesthesia with endometrial Pipelle biopsy Surgeon:: Marlee Motta DO P[employer]ING HOUSE SUPERVISOR:: Adali Segura Anesthesia: MAC Estimated blood loss (mL): 10 Operative findings:: Findings: -EUA revealed an 6-week anteverted uterus. Narrowed vaginal introidus. no sign ificant prolapse or support defects noted. Operative note:: The patient was taken back to the OR where IV access was lost and difficult to obtain. We used an US to gain access but shortly after timeout prior to procedure initiation we lost IV access. She had previously been placed in the dorsal lithotomy position using yellow fin stirrups and sterilely prepped and draped in the usual fashion.? An in and out catheter was used to drain her bladder.? A timeout was performed.? Her vaginal introitus was too narrow to fit a weighted speculum and vaginal retractor was used along with a [place] to visualize the cervix. Single-tooth tenaculum was applied to the anterior lip cervix. Given we had no IV access decision was made to abort the hysteroscopy procedure. A suction endometrial Pipelle was used x 3 passes to collect endometrial sample. The Pipelle was inserted to approximately 7 cm. Although there was scant sample it did appear that there was enough endometrial tissue there for evaluation and the patient was uncomfortable so decision was made to conclude the procedure. The single-tooth tenaculum was removed and hemostasis was noted at the tenaculum sites.? All instruments were removed from the vagina.? All counts were correct, per nursing.? This concluded the procedure, the patient was awakened from anesthesia, and transferred to the PACU in stable condition. Condition: stable Disposition: PACU Specimens:: Endometrial curettings Complications:: Difficulty maintaining IV access
== END 2023-06-10 12:08 | disposition home or self-care (01) ==
PROVIDERS: PCP Internal Medicine; Visit Provider Obstetrics & Gynecology
PROC: (CPT 58100; principal; 2023-06-10 10:15)
DX: N95.0 Postmenopausal bleeding (principal); I87.2 Venous insufficiency (chronic) (peripheral); N89.5 Stricture and atresia of vagina; E11.9 Type 2 diabetes mellitus without complications
CPT/HCPCS: 58100; 82962

== ENCOUNTER 2023-07-28 10:01 | Outpatient (CLI) | payer MEDICARE, OTHER, SELFPAY ==
--- NOTE | 2023-07-28 10:05 | XR_ITS ---
FINAL REPORT CLINICAL HISTORY: Left shoulder pain COMPARISON: None FINDINGS: LEFT SHOULDER 3 views demonstrate no acute fracture or dislocation. Mild degenerative change is present. The visualized bony structures are well aligned. No soft tissue abnormality is seen. IMPRESSION: No acute process. Reviewed, Interpreted and Dictated by Jam Akbar III, MD Transcribed by Jemima Garcia Authenticated and [facility]
--- NOTE | 2023-07-28 10:05 | XR_ITS ---
FINAL REPORT CLINICAL HISTORY: Left ankle pain COMPARISON: None FINDINGS: LEFT ANKLE: Three views of the left ankle were obtained. There is no acute fracture or dislocation. The joint spaces and mortise are intact. Soft tissue swelling is present around the ankle. There is a small plantar calcaneal spur. IMPRESSION: No acute bony abnormality. Reviewed, Interpreted and Dictated by Jam Akbar III, MD Transcribed by Jemima Garcia Authenticated and [facility]
--- NOTE | 2023-07-28 10:05 | XR_ITS ---
FINAL REPORT CLINICAL HISTORY: Left lower leg pain COMPARISON: None FINDINGS: LEFT TIBIA FIBULA: There is no acute fracture or dislocation. Mild degenerative changes present in the knee. There is no soft tissue abnormality. IMPRESSION: No acute bony abnormality. Reviewed, Interpreted and Dictated by Jam Akbar III, MD Transcribed by Jemima Garcia Authenticated and [facility]
--- NOTE | 2023-07-28 10:05 | XR_ITS ---
FINAL REPORT TECHNIQUE: Left scapula 2 views CLINICAL HISTORY: Left scapular pain COMPARISON: None FINDINGS: LEFT SCAPULA: 2 views of the left scapula failed to reveal any evidence of acute fracture or dislocation. Mild degenerative change is noted. IMPRESSION: No acute bony abnormality identified. Reviewed, Interpreted and Dictated by Jam Akbar III, MD Transcribed by Jemima Garcia Authenticated and [facility]
== END 2023-07-28 23:59 | disposition home or self-care (01) ==
LOC: RAD 10:02
PROVIDERS: PCP Internal Medicine; Visit Provider Nurse Practitioner Family
DX: M79.662 Pain in left lower leg (principal); M89.8X1 Other specified disorders of bone, shoulder; M25.572 Pain in left ankle and joints of left foot; M25.512 Pain in left shoulder
CPT/HCPCS: 73010; 73030; 73590; 73610

== ENCOUNTER 2023-07-29 07:10 | Day surgery (SDC) | payer MEDICARE, OTHER, SELFPAY ==
--- NOTE | 2023-07-29 07:14 | EXP.GEN.HP ---
HPI HPI HPI: Patient presents for followup EGD. Patient is a 72-year-old female who has had approximately 27 previous upper endoscopies over the past 16 or 17 years. She has a history of esophageal carcinoma diagnosed in 2006 and underwent chemotherapy and radiation without resection. However she was unable to complete chemotherapy due to side effects. She has previously been found to have some cricopharyngeal narrowing and presbyesophagus consistent with esophageal dysmotility with chronic esophagitis between 15 to 30 cm with some exudate. She has had inflammatory benign luminal narrowing at the gastroesophageal junction and has undergone previous dilatation.Most recent EGD with dilatation which was done on 05/13/2023. 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 Her distal esophageal stricture was so tight the endoscope was unable to be advanced beyond this. It was initially dilated to 10 mm then sequentially to 12 mm. It was then dilated to 13.5 mm but unable to be dilated to 15. Previous discussion was held by me and Dr. Cowan with possible referral to tertiary facility for dilatation with stent. Patient has not been interested in this due to financial and transportation issues. She may have better results with dilatation using the savory dilator. I do not perform this procedure. I will tentatively plan for a repeat endoscopy for possible careful progressive dilatation likely beginning with 12 mm balloon. Patient has appointment with Cayla Ceron for possible consideration of arrangements for dilatation using savory bougie dilator with Dr. Ceron. Patient is now interested in possible gastroenterology dilatation with stent placement if deemed appropriate. She states that recently she has had multiple episodes where she has to regurgitate/vomit after eating. . [facility] Disclaimer: The information contained in this section may have been updated after the patient was seen, as this information can be updated by other users. Medical History Diabetes Migraine History of throat cancer Surgical History Hx laparoscopic cholecystectomy Hx of esophagogastroduodenoscopy Hx of right BKA History of hand surgery Family History Other Family history of cancer Family history of diabetes mellitus type II Family history of hypothyroidism Family history of stroke Social History Smoking Status: Never smoker second hand exposure: No alcohol intake: never substance use type: denies use current occupational status: retired Travel in the last 8 weeks: None adopted: No caregiver/support person: No foster care: No household members: none housing: house lives independently: Yes marital status: single education level: high school service: No retirement: No current occupation: Retired current occupational exposures/hazards: No caffeine: No special rey needs: No agree to transfusion: No do you feel safe at home: Yes victim of physical abuse: No victim of emotional abuse: No victim of sexual abuse: No would you like helpful sources: No Review of Systems Review of Systems Review of systems:: pertinent systems reviewed and negative unless documented below Meds Home Medications and Allergies Home Medications Medication Instructions Recorded Confirmed Type celecoxib 200 mg capsule 200 mg PO DAILY Pain 02/18/17 07/29/23 History etqzxdvx-rxieuzp-prvf-lutein tablet 1 mcg PO DAILY Supplement 02/18/17 07/29/23 History metformin 500 mg tablet,extended 500 mg PO DAILY 02/24/23 07/29/23 History release 24 hr vitamins A,C,M-htmg-azmhcs 2,148 2 tab PO BID 06/09/23 07/29/23 History mcg-113 mg-45 mg-17.4 mg tablet (PreserVision AREDS) esomeprazole magnesium 40 mg 40 mg PO DAILY #90 caps 06/16/23 07/29/23 Rx capsule,delayed release clobetasol 0.05 % topical cream 1 applic topical .COMPLEX #30 grams 06/17/23 07/29/23 Rx ergocalciferol (vitamin D2) 1,250 1,250 mcg PO WEEKLY #12 caps 07/12/23 07/29/23 Rx mcg (50,000 unit) capsule (Vitamin D2) metoclopramide HCl 10 mg tablet 10 mg PO QID #120 tabs 07/28/23 07/29/23 Rx mupirocin 2 % topical ointment 1 applic topical DAILY #22 grams 07/28/23 07/29/23 Rx tizanidine 2 mg tablet 2 mg PO Q6H #120 tabs 07/28/23 07/29/23 Rx New Prescriptions to Start Prescriptions: Allergies Allergy/AdvReac Type Severity Reaction Status Date / Time milk Allergy Mild Vomiting Verified 07/28/23 08:53 promethazine [From Phenergan] Allergy Mild whole body Verified 07/28/23 08:53 aches egg AdvReac Severe Vomiting Verified 07/28/23 08:53 Exam *Routine HEENT Exam Head: Present normocephalic Eye: Present EOMI ENT: Present mucous membranes moist *Routine Respiratory Exam Respiratory: Present CTA bilaterally *Routine Cardiovascular Exam Cardiovascular: Present RRR *Routine Abdominal Exam Abdominal: Present soft *Routine Rectal Exam Rectal:: deferred *Routine Genitalia Exam Genitalia:: deferred Assessment and Plan *Assessment and plan (1) Esophagitis: Status: Acute Category: Medical Code(s): K20.90 - Esophagitis, unspecified without bleeding Plan Plan will be to proceed with upper endoscopy with possible limited dilatation as a temporizing bridge until she can undergo more definitive endoscopy with gastroenterology.
[2023-07-29 07:57] VITALS: BMI 26.4
[2023-07-29] MEDS: LACTATED RINGERS 1000ML 1,000 ML 25 ML IV (08:10)
[2023-07-29 08:14] VITALS: BP 134/58; PULSE 79; RESP 18; TEMP 36.5; O2SAT 97
[2023-07-29 08:31] LABS: POC Glucose,Bedside 107 (70-110)
--- NOTE | 2023-07-29 08:39 | P.PNANES_ITS ---
[facility] Disclaimer: The information contained in this section may have been updated after the patient was seen, as this information can be updated by other users. Medical History Diabetes Migraine History of throat cancer Surgical History Hx laparoscopic cholecystectomy Hx of esophagogastroduodenoscopy Hx of right BKA History of hand surgery Family History Other Family history of cancer Family history of diabetes mellitus type II Family history of hypothyroidism Family history of stroke Social History Smoking Status: Never smoker second hand exposure: No alcohol intake: never substance use type: denies use current occupational status: retired Travel in the last 8 weeks: None adopted: No caregiver/support person: No foster care: No household members: none housing: house lives independently: Yes marital status: single education level: high school service: No senior care: No current occupation: Retired current occupational exposures/hazards: No caffeine: No special rey needs: No agree to transfusion: No do you feel safe at home: Yes victim of physical abuse: No victim of emotional abuse: No victim of sexual abuse: No would you like helpful sources: No [facility] Anesthesia Checklist Patient Identification Patient Identification: Arm Band and Verbal (Name & ) Structural Data Admitted From: Home Planned Operative Procedure/s: EGD Consent for Planned Operative Procedure(s) Verified: Yes Verified Documents: Surgical Consent and History and Physical NPO Status Verified Time NPO: 00:00 Additional verifications Anesthesia Reactions: No Hx Blood Transfusions: No Blood Transfusion Reaction: No Airway Assessment Mallampati Score:: Class II C-Spine Mobility Assessed: Yes TMJ Mobility Assessed: Yes Dentition: Partials (Removed) Neurological Assessment Level of Consciousness: Awake Hx Seizures: No Numbness or tingling in extremities: No Anesthesia Plan Anesthesia Risk discussed: Yes Anesthesia Plan: Verified ASA Class: II Anesthesia Type: MAC
[2023-07-29 09:17] VITALS: O2SAT 97
--- NOTE | 2023-07-29 09:53 | P.PCN_ITS ---
Procedure: Date: 07/29/23 Patient Date of :: 1950 Procedure Performed:: Esophagogastroduodenoscopy with biopsies and dilatation distal esophageal stricture using pneumatic dilator ultimately to 15 mm Indications:: Patient presents for followup EGD. Patient is a 72-year-old female who has had approximately 27 previous upper endoscopies over the past 16 or 17 years. She has a history of esophageal carcinoma diagnosed in 2006 and underwent chemotherapy and radiation without resection. However she was unable to complete chemotherapy due to side effects. She has previously been found to have some cricopharyngeal narrowing and presbyesophagus consistent with esophageal dysmotility with chronic esophagitis between 15 to 30 cm with some exudate. She has had inflammatory benign luminal narrowing at the gastroesophageal junction and has undergone previous dilatation.Most recent EGD with dilatation which was done on 05/13/2023. 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 Her distal esophageal stricture was so tight the endoscope was unable to be advanced beyond this. It was initially dilated to 10 mm then sequentially to 12 mm. It was then dilated to 13.5 mm but unable to be dilated to 15. Previous discussion was held by me and Dr. Cowan with possible referral to tertiary facility for dilatation with stent. Patient has not been interested in this due to financial and transportation issues. She may have better results with dilatation using the savory dilator. I do not perform this procedure. I will tentatively plan for a repeat endoscopy for possible careful progressive dilatation likely beginning with 12 mm balloon. Patient has appointment with Cayla Ceron for possible consideration of arrangements for dilatation using savory bougie dilator with Dr. Ceron. Patient is now interested in possible gastroenterology dilatation with stent placement if deemed appropriate. She sta ayla that recently she has had multiple episodes where she has to regurgitate/vomit after eating. . Performing Provider:: Jam Palmer MD Referring Provider:: Tori Mortensen Sedation:: MAC sedation Procedure:: Patient history was obtained and appropriate physical examination was performed. Patient's medications and allergies were reviewed. Informed consent was obtained after explaining the benefits, alternatives, and risks of the procedure including, but not limited to, bleeding, perforation, missed lesions, and adverse reaction to anesthesia medications. Patient was transported to endoscopy procedure room. Patient was connected to monitoring devices. Throughout the procedure the patient's blood pressure, pulse, and oxygen saturations were monitored continuously. Patient identification and planned procedure were verified by the staff. Patient was positioned in lateral decubitus position. Olympus endoscope was inserted via the oropharynx. Esophagus was cannulated. There was some cricopharyngeal spasm. There were findings consistent with mild esophageal dysmotility. In the distal esophagus there were a couple of inflammatory lesions which appear to almost polypoid in nature with exudate. The gastroesophageal junction was encountered at approximately 32 cm from the incisors. Endoscope could not be advanced. An 8 to 10 mm elation balloon dilator was inserted. Careful dilatation was performed initially to 8 mm then 9 mm then sequentially to 10 mm. At this time biopsy was obtained at the region of the stricture and biopsy was also obtained of the distal esophageal lesion . Additional dilatation was performed using guidewire directed dilator (10 to 12 mm). She was sequentially dilated with the pneumatic dilator to 10 mm with, then 11 mm, then 12 mm. At this time the endoscope was able to be advanced into the gastric lumen. There appeared to be a moderate sliding hiatal hernia. The gastroesophageal junction was at 32 cm. There was some minor diffuse ga stropathy. Pylorus was traversed. Duodenal bulb appeared unremarkable. At this time a 12 to 15 mm balloon dilator was inserted. Endoscope was withdrawn as the balloon dilator was advanced and sequential dilatation was performed carefully of the stricture initially to 12 mm then slowly to 13.5 and then 15 mm where it was held for about 2 minutes. The dilator was removed and the endoscope was once again able to be advanced into the gastric lumen. The stricture was still rather tight but the endoscope was able to be advanced. Stomach was desufflated and the endoscope was withdrawn. . Findings:: Gastroesophageal junction at 32 cm Tight stricture at the gastroesophageal junction Inflammatory appearing polyp like lesion, biopsied Sequential dilatation performed beginning at 8 mm and ultimately dilating to 15 mm. Recommendations:: Limited soft diet. Follow-up with gastroenterology for consideration of more effective/definitive endoscopic management. Complications:: None immediately apparent Estimated blood obtained (mL): 3 Colonoscopy Component Colonoscopy Component Was a colonoscopy performed during today's procedure?: No
[2023-07-29 09:54] VITALS: BP 106/54; PULSE 91; RESP 16; TEMP 36.5; O2SAT 95
[2023-07-29 10:03] VITALS: BP 105/43; PULSE 98; RESP 16; O2SAT 94
[2023-07-29 10:14] VITALS: BP 118/60; PULSE 87; RESP 16; O2SAT 95
[2023-07-29 10:25] VITALS: BP 129/74; PULSE 79; RESP 16; O2SAT 95
== END 2023-07-29 10:45 | disposition home or self-care (01) ==
PROVIDERS: PCP Internal Medicine; Visit Provider Surgery
PROC: 0DJ08ZZ Inspection of Upper Intestinal Tract, Via Natural or Artificial Opening Endoscopic (ICD-10-PCS; CPT 43235; principal; 2023-07-29 09:30)
DX: K20.90 Esophagitis, unspecified without bleeding (principal); E11.9 Type 2 diabetes mellitus without complications; Z85.01 Personal history of malignant neoplasm of esophagus; R13.10 Dysphagia, unspecified
CPT/HCPCS: 43239; 82962; C1726; J7120

== ENCOUNTER 2023-09-01 09:02 | Day surgery (SDC) | payer MEDICARE, OTHER, SELFPAY ==
[2023-08-30 13:40] VITALS: BMI 26.4
[2023-09-01 10:15] VITALS: BP 128/62; PULSE 75; RESP 18; TEMP 36.8; O2SAT 98
[2023-09-01] MEDS: LACTATED RINGERS 1000ML 1,000 ML 100 ML IV (10:20)
[2023-09-01 10:46] LABS: POC Glucose,Bedside 93 (70-110)
--- NOTE | 2023-09-01 11:11 | EXP.ANES.CKL ---
[facility] Disclaimer: The information contained in this section may have been updated after the patient was seen, as this information can be updated by other users. Medical History Diabetes Migraine History of throat cancer Surgical History History of surgery Hx laparoscopic cholecystectomy Hx of esophagogastroduodenoscopy Hx of right BKA History of hand surgery Family History Other Family history of cancer Family history of diabetes mellitus type II Family history of hypothyroidism Family history of stroke Social History (Updated 09/01/23 @ 10:10 by Darleen Rivera RN) Smoking Status: Never smoker second hand exposure: No alcohol intake: never substance use type: denies use current occupational status: retired Travel in the last 8 weeks: None adopted: No caregiver/support person: No foster care: No household members: none housing: house lives independently: Yes marital status: single education level: high school service: No detention: No current occupation: Retired current occupational exposures/hazards: No caffeine: Yes special rey needs: No agree to transfusion: No do you feel safe at home: Yes victim of physical abuse: No victim of emotional abuse: No victim of sexual abuse: No would you like helpful sources: No [facility] Anesthesia Checklist Patient Identification Patient Identification: Arm Band Structural Data Admitted From: Home Planned Operative Procedure/s: EGD Consent for Planned Operative Procedure(s) Verified: Yes Verified Documents: Surgical Consent and History and Physical NPO Status Verified Time NPO: 00:00 Additional verifications Anesthesia Reactions: No Hx Blood Transfusions: No Blood Transfusion Reaction: No Airway Assessment Mallampati Score:: Class II C-Spine Mobility Assessed: Yes TMJ Mobility Assessed: Yes Dentition: Poor Dentition Neurological Assessment Level of Consciousness: Awake, Alert and Appropriate Anesthesia Plan Anesthesia Risk discussed: Yes Anesthesia Plan: Verified ASA Class: III Anesthesia Type: MAC
[2023-09-01 11:16] VITALS: O2SAT 98
--- NOTE | 2023-09-01 11:33 | HMH.SCOPE ---
Procedure: Date: 09/01/23 Patient Date of :: 1950 Procedure Performed:: EGD/biopsies/dilation Indications:: Recurrent esophageal stricture Performing Provider:: Nikhil Ceron MD Referring Provider:: Cayla Ceron APRN Sedation:: Propofol Procedure:: The gastroscope was gently passed through the incisoral orifice into the oral cavity and under direct visualization the esophagus was intubated. The endoscope was passed down the esophagus, through the stomach, and into the duodenum. Color, texture, mucosa, and anatomy of the esophagus, stomach, and duodenum were carefully examined with the scope. Findings:: Oropharynx: normal Esophagus: Tight recurrent stricture, distal esophagus, biopsied, balloon dilated to 16.5mm EG Junction: intact at 40 cm, hiatus hernia Cardia: normal Fundus: normal Body: normal Antrum: normal Duodenal bulb: normal Duodenum (second and third portion): normal Impression: Recurrent esophageal stricture, dilated Hiatus hernia Specimens:: Esophagus Recommendations:: High dose PPI May need repeat step catalan dilation in about 6 months or so Follow up GI Clinic Complications:: None Estimated blood obtained (mL): 0 Colonoscopy Component Colonoscopy Component Was a colonoscopy performed during today's procedure?: No
[2023-09-01 11:35] VITALS: BP 110/70; PULSE 98; RESP 18; TEMP 36.5; O2SAT 91
[2023-09-01 11:45] VITALS: BP 110/71; PULSE 89; RESP 16; O2SAT 93
[2023-09-01 11:55] VITALS: BP 131/64; PULSE 94; RESP 16; O2SAT 95
[2023-09-01 12:20] VITALS: BP 130/78; PULSE 67; RESP 18; O2SAT 96
== END 2023-09-01 12:05 | disposition home or self-care (01) ==
PROVIDERS: PCP Internal Medicine; Visit Provider Internal Medicine Gastroenterology
PROC: 0DJ08ZZ Inspection of Upper Intestinal Tract, Via Natural or Artificial Opening Endoscopic (ICD-10-PCS; CPT 43235; principal; 2023-09-01 11:00)
DX: R13.10 Dysphagia, unspecified (principal); K22.2 Esophageal obstruction; K44.9 Diaphragmatic hernia without obstruction or gangrene; E11.8 Type 2 diabetes mellitus with unspecified complications; Z79.84 Long term (current) use of oral hypoglycemic drugs
CPT/HCPCS: 43239; 43249; 82962; 88305; C1726; J7120

== ENCOUNTER 2023-09-26 15:59 | Outpatient (CLI) | payer MEDICARE, OTHER, SELFPAY ==
[2023-09-26 13:51] LABS: Basophils % 0.6 % (0.1-2.0); Eosinophils # 0.1 K/mm3 (0.0-0.4); Eosinophils % 1.3 % (0.1-12.0); Hematocrit 45.3 % (37.0-47.0); Hemoglobin 13.7 g/dL (12.2-16.2); Lymphocytes # 1.7 K/mm3 (0.7-4.5); Lymphocytes % 22.4 % (10-50); Mean Corpuscular HGB Conc 30.3 g/dL (31.8-35.4); Mean Corpuscular Hemoglobin 28.5 pg (27.0-31.2); Mean Corpuscular Volume 93.9 fl (81-99); Mean Platelet Volume 10.5 fl (7.4-10.4); Monocytes # 0.5 K/mm3 (0.1-1.0); Neutrophils # 5.4 K/mm3 (1.8-7.8); Neutrophils % 69.7 % (37.0-80.0); Platelet Count 242 K/mm3 (142-424); Red Blood Count 4.82 M/mm3 (4.20-5.40); White Blood Count 7.8 K/mm3 (4.8-10.8)
[2023-09-26 14:23] LABS: Albumin Level 4.4 g/dl (3.5-5.0); Chloride 105 mmol/L (98-107); Sodium 138 mmol/L (136-145)
[2023-09-26 14:24] LABS: Potassium 5.1 mmoL/L (3.5-5.1)
[2023-09-26 14:26] LABS: Alanine Aminotransferase 17 U/L (12-78); Albumin/Globulin Ratio 1.4 (1.1-1.8); Alkaline Phosphatase 111 U/L (38-126); Anion Gap 11.1 mEq/L (5-15); Aspartate Amino Transferase 26 U/L (14-36); Bilirubin,Total 0.7 mg/dl (0.2-1.3); Blood Urea Nitrogen 18 mg/dl (7-17); Carbon Dioxide 27 mmol/L (22.0-30.0); Estimated Glomerular Filt Rate 61 ml/min (>60); GFR (African American) 74 ML/MIN (>60); Globulin 3.1 g/dL (1.3-3.2); Phosphorous 3.8 mg/dl (2.5-4.5); Total Protein,Serum 7.5 g/dl (6.3-8.2)
[2023-09-26 14:27] LABS: Calcium 9.4 mg/dl (8.4-10.2); Glucose 85 mg/dl (74-100); Magnesium 1.9 mg/dl (1.6-2.3)
[2023-09-26 18:55] LABS: Hemoglobin A1C 5.9 % (4.0-6.0)
== END 2023-09-26 23:59 | disposition home or self-care (01) ==
LOC: LAB.DROPOF 15:59
PROVIDERS: PCP Nurse Practitioner Family; Visit Provider Nurse Practitioner Family
DX: E11.9 Type 2 diabetes mellitus without complications (principal); M62.838 Other muscle spasm; R53.83 Other fatigue
CPT/HCPCS: 80053; 83036; 83735; 84100; 85025

== ENCOUNTER 2023-09-29 07:07 | Outpatient (CLI) | payer MEDICARE, OTHER, SELFPAY ==
--- NOTE | 2023-09-29 07:11 | XR_ITS ---
FINAL REPORT CLINICAL HISTORY: lt knee pain COMPARISON: 06/09/2023 FINDINGS: Three views of the left knee reveal no evidence of fracture or dislocation. The bony alignment is normal. There is moderate degenerative change, worst involving the medial compartment. There is no evidence of joint effusion. No localized soft tissue abnormality is seen. IMPRESSION: Moderate degenerative changes without acute abnormality identified. Reviewed, Interpreted and Dictated by Jam Akbar III, MD Transcribed by Felecia Jules Authenticated and [facility]
== END 2023-09-29 23:59 | disposition home or self-care (01) ==
LOC: RAD 07:08
PROVIDERS: PCP Internal Medicine; Visit Provider Physician Assistant
DX: M25.562 Pain in left knee (principal)
CPT/HCPCS: 73562

== ENCOUNTER 2023-11-14 16:05 | Emergency (ER) | payer MEDICARE, OTHER, SELFPAY ==
[2023-11-14 16:20] VITALS: BP 148/77; PULSE 101; RESP 20; TEMP 37.2; O2SAT 97; BMI 25.7
--- NOTE | 2023-11-14 16:28 | ED_ITS ---
Discharge Plan Disposition Patient Disposition: Home, Self-Care Condition: Good Prescriptions Prescriptions: New ondansetron 4 mg Tablet,Disintegrating 4 mg PO Q8H PRN (Reason: Nausea) Qty: 12 0RF nitrofurantoin monohyd/m-cryst [Macrobid] 100 mg Capsule 100 mg PO BID 5 Days Qty: 10 0RF Rx Instructions: must administer with a meal/food No Action celecoxib 200 mg capsule 200 mg PO DAILY ketoconazole 2 % shampoo 1 applic TOPICAL DAILY lidocaine 4 % adhesive patch,medicated 1 patch TOPICAL DAILY tizanidine 2 mg tablet 2 mg PO DAILY meloxicam 7.5 mg tablet 7.5 mg PO DAILY esomeprazole magnesium 40 mg capsule,delayed release(DR/EC) 40 mg PO DAILY ergocalciferol (vitamin D2) [Vitamin D2] 1,250 mcg (50,000 unit) capsule 1,250 mcg PO DAILY metformin 500 mg tablet extended release 24 hr 500 mg PO DAILY metoclopramide HCl 10 mg tablet 10 mg PO DAILY Referrals Follow up/Referrals: Tori Mortensen APRN [Primary Care Provider] - See instructions Activity Restrictions/Add. Instructions Additional Instructions/Restrictions: Drink plenty of fluids. Take tylenol for pain or fever. Take the medications as directed. Follow up with your regular doctor. GO TO THE ER FOR ANY WORSENING SYMPTOMS Clinical Impressions Clinical Impression: UTI (urinary tract infection) Instructions Patient Instructions: Viral Gastroenteritis, DI for Viral Gastroenteritis -- Adult, Ondansetron Print Language Print Language: Maori Discharge ED Provider: Hima Olson [facility] General Stated complaint: Vomiting,back pain Mode of Arrival: Ambulatory Source of Information: Patient Limitations: No Limitations Time Seen by Provider: 11/14/23 16:28 Description of Symptoms (Recalled from Triage Doc. by RN): PATIENT C/O VOMITING AND BACK PAIN, POSSIBLE FOOD POISONING THAT STARTED TODAY HEENT Symptoms (Recalled from RN notes): No Resp Symptoms (Recalled from RN notes): No Skin Symptoms (Recalled from RN notes): No MS Symptoms (Recalled from RN notes): Yes Functional Status (Recalled from RN notes): WNL History of Present Illness Provider Complaint: She states that 3 days ago she began having diarrhea after eating something that she believes caused her to get food poisoning. She has vomited several times since last night. She states that she is starting to feel better, but her low back is hurting after she vomited so hard. She denies any fever/chills/abdominal pain. Related Data Home Medications ?Medication ?Instructions ?Recorded ?Confirmed celecoxib 200 mg capsule 200 mg PO DAILY 11/14/23 11/14/23 ergocalciferol (vitamin D2) 1,250 1,250 mcg PO DAILY 11/14/23 11/14/23 mcg (50,000 unit) capsule (Vitamin D2) esomeprazole magnesium 40 mg 40 mg PO DAILY 11/14/23 11/14/23 capsule,delayed release ketoconazole 2 % shampoo 1 applic topical DAILY 11/14/23 11/14/23 lidocaine 4 % topical patch 1 patch topical DAILY 11/14/23 11/14/23 meloxicam 7.5 mg tablet 7.5 mg PO DAILY 11/14/23 11/14/23 metformin 500 mg tablet,extended 500 mg PO DAILY 11/14/23 11/14/23 release 24 hr metoclopramide HCl 10 mg tablet 10 mg PO DAILY 11/14/23 11/14/23 tizanidine 2 mg tablet 2 mg PO DAILY 11/14/23 11/14/23 Previous Rx's ?Medication ?Instructions ?Recorded nitrofurantoin 100 mg PO BID 5 days #10 caps 11/14/23 monohydrate/macrocrystals 100 mg capsule (Macrobid) ondansetron 4 mg disintegrating 4 mg PO Q8H PRN Nausea #12 tabs 11/14/23 tablet Allergies Allergy/AdvReac Type Severity Reaction Status Date / Time milk Allergy Mild Vomiting Verified 11/02/23 08:43 promethazine [From Phenergan] Allergy Mild whole body Verified 11/02/23 08:43 aches egg AdvReac Severe Vomiting Verified 11/02/23 08:43 Worker's Comp Is this a Worker's Comp case?: No [facility] Disclaimer: The information contained in this section may have been updated after the patient was seen, as this information can be updated by other users. Medical History Diabetes Migraine History of throat cancer Surgical History History of surgery Hx laparoscopic cholecystectomy Hx of esophagogastroduodenoscopy Hx of right BKA History of hand surgery web fingers seperated Family History Other Family history of cancer Family history of diabetes mellitus type II Family history of hypothyroidism Family history of stroke Social History Smoking Status: Never smoker second hand exposure: No alcohol intake: never substance use type: denies use current occupational status: retired Travel in the last 8 weeks: None adopted: No caregiver/support person: No foster care: No household members: none housing: house lives independently: Yes marital status: single education level: high school service: No usp: No current occupation: Retired current occupational exposures/hazards: No caffeine: Yes special rey needs: No agree to transfusion: No do you feel safe at home: Yes victim of physical abuse: No victim of emotional abuse: No victim of sexual abuse: No would you like helpful sources: No ROS Obtained: Yes All systems reviewed & no additional complaints except as documented Constitutional Constitutional: Denies chills and Denies fever(s) Eyes Eyes: Denies eye discharge ENT Ears, Nose, Mouth, and Throat: Denies dizziness, Denies otalgia and Denies sore throat Cardiovascular Cardiovascular: Denies chest pain Respiratory Respiratory: Denies shortness of breath, Denies chest congestion, Denies cough, Denies stridor and Denies wheezing Gastrointestinal Gastrointestingal: Reports as per HPI, diarrhea, nausea and vomiting; Denies abdominal pain Genitourinary Female Genitourinary: Denies dysuria, Denies urinary frequency, Denies urinary incontinence, Denies urinary hesitancy and Denies urinary urgency Musculoskeletal Musculoskeletal: Reports system reviewed and no additional complaints, except as documented and Denies arthralgias Integumentary/Breasts Skin/Breast: Denies rash Neurologic Neurologic: Denies dizziness and Denies paresthesias Allergic/Immunologic Allergic/Immunologic: Denies wheezing Physical Exam General General appearance: alert and in no apparent distress Head Head exam: atraumatic and normocephalic Eye Eye exam: Present normal appearance, PERRL and EOMI ENT ENT exam: Present normal exam, normal oropharynx, mucous membranes moist, TM's normal bilaterally and normal external ear exam Neck Neck exam: Present normal inspection, full ROM and trachea midline; Absent tenderness, meningismus or lymphadenopathy Chest Chest inspection: Present normal inspection and symmetric chest wall rise; Absent tenderness, rash or abscess Respiratory Respiratory exam: Present normal lung sounds bilaterally; Absent respiratory distress, wheezes or stridor Cardiovascular Cardiovascular exam: Present regular rate and normal rhythm; Absent irregular rhythm, systolic murmur, diastolic murmur or JVD Abdominal Exam Abdominal exam: Present soft and hyperactive bowel sounds; Absent distention, tenderness, guarding, rebound, rigidity, psoas sign, obturator sign, heel tap sign, Ellis's sign, Rovsing's sign or tenderness at McBurney's Point Extremities Exam Extremities exam: Present normal inspection and full ROM; Absent tenderness Back Exam Back exam: Present normal inspection and full ROM; Absent tenderness, CVA tenderness (R) or CVA tenderness (L) Neurological Exam Neurological exam: Present alert, oriented X3 and CN II-XII intact Psychiatric Psychiatric exam: Present normal affect and normal mood Skin Skin exam: Present warm, dry, intact and normal color Lymphatic Lymphatic Findings: no adenopathy Medical Decision Making Medical Records Medical records reviewed: No I reviewed the patient's medical records. Screening: Per USPSTF and CDC recommendations, given the prevalence of disease in our region, it is our hospital?s policy to screen for HIV and viral Hepatitis for all patients aged 18 and over and those with ongoing risk factors. Sukhdeep Inquiry Pt receiving controlled substance: No Vital Signs: 11/14/23 16:20 Temperature 98.9 F Temperature Source Oral Pulse Rate [Left Brachial] 101 H Respiratory Rate 20 Blood Pressure [Left Arm] 148/77 H Blood Pressure Mean [Left Arm] 100 Blood Pressure Source [Left Arm] Automatic Cuff Blood Pressure Position [Left Arm] Sitting 02 Sat by Pulse Oximetry 97 Oxygen Delivery Method Room Air Lab Data Lab results reviewed: Yes I reviewed the patient's lab results.
[2023-11-14 17:10] VITALS: BP 148/77; PULSE 101; RESP 20; TEMP 37.2; O2SAT 97
[2023-11-14 17:12] LABS: Microscopic, Urine URINE MICROSCOPIC (MICROSCOPIC)
[2023-11-14 17:18] LABS: Appearance,Urine CLEAR (Clear); Blood, Urine 3+ (Negative); Color,Urine YELLOW (Yellow); Glucose,Urine (UA) Negative (Negative); Ketones,Urine 2+ (Negative); Leukocyte Esterase,Urine TRACE (Negative); Nitrate,Urine Negative (Negative); PH,Urine 5.5 (5.0-8.5); Protein,Urine 1+ (Negative); Specific Gravity, Urine >= 1.030 (1.005-1.030); Urobilinogen,Urine 0.2 EU/dl (0.2)
[2023-11-14 17:29] LABS: Bilirubin,Urine 1+ (Negative)
[2023-11-14 18:14] LABS: Bacteria,Urine 2+ /lpf; Uric Acid Crystals,Urine 3+ /lpf
--- NOTE | 2023-11-14 20:08 | PC.NURSE ---
PATIENT NOTIFIED OF U/A RESULTS AND ADVISED THAT ANTIBIOTICS WERE SENT IN TO PHARMACY. 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
== END 2023-11-14 17:13 | disposition home or self-care (01) ==
PROVIDERS: Emergency Provider Nurse Practitioner Family; PCP Nurse Practitioner Family
DX: N39.0 Urinary tract infection, site not specified (principal); R11.2 Nausea with vomiting, unspecified; M54.59 Other low back pain; B96.89 Other specified bacterial agents as the cause of diseases classified elsewhere
CPT/HCPCS: 81001; 87086; 99204; 99212; G0463

== ENCOUNTER 2023-11-17 10:10 | Observation (INO) | payer MEDICARE, OTHER, SELFPAY ==
[2023-11-17] VITALS (10 sets, daily range): BP systolic 95–149; BP diastolic 40–74; PULSE 69–95; RESP 16–18; TEMP 36.4–37.5; O2SAT 93–97; BMI 25.7; BMI 24.7
--- NOTE | 2023-11-17 10:22 | PC.NURSE ---
pt arrived to er via wheelchair, dried vomit noted on pt shirt pants and shoes. PT states that she vomited Tuesday11/10/23 and this is when it got on her clothes. pt states she just felt to bad to change her clothes. Helped pt to change her shirt and gown is placed, pt refuses to change her pants and shoes with vomit on it at this time, staff offered to help with the change of clothes, pt refused several times.
--- NOTE | 2023-11-17 10:40 | CT_ITS ---
FINAL REPORT TECHNIQUE: After the administration of intravenous contrast, axial images were obtained through the abdomen and pelvis by computed tomography. This study was performed with technique to keep radiation doses as low as reasonably achievable, (ALARA). Individualized dose reduction techniques using automated exposure control or adjustment of the MA and/or KV according to the patient's size were employed. CLINICAL HISTORY: gen abd pain/n/v, no BM/gas passing since Sat FINDINGS: Abdomen: Abnormal mucosal thickening is seen throughout the distal esophagus which may be related to reflux. There are peripherally calcified bilateral subglandular breast implants. The left breast implant is asymmetrically diminished which may be related to rupture. The lung bases are clear. The liver is mildly enlarged measuring 19 cm. Patient is status postcholecystectomy the spleen is unremarkable. The adrenals are normal. The pancreas is unremarkable. The kidneys enhance appropriately. The aorta is normal in caliber. There is no free fluid or adenopathy. There is a moderate-sized hiatal hernia. Pelvis: The appendix is normal. The urinary bladder is unremarkable. There is no free fluid or adenopathy. IMPRESSION: Abnormal mucosal thickening throughout the distal esophagus which may be related to reflux. Mildly enlarged liver. Reviewed, Interpreted and Dictated by Willie Mckeon MD Transcribed by Iliana Da Silva Authenticated and [facility]
--- NOTE | 2023-11-17 10:42 | ED_ITS ---
Discharge Plan Disposition Patient Disposition: Admitted Condition: Fair Clinical Impressions Clinical Impression: Abdominal pain, Nausea & vomiting, KARI (acute kidney injury), Elevated lipase, Elevated lactic acid level, UTI (urinary tract infection) Discharge ED Provider: Taryn Ryan General Adult HPI General Chief complaint: Nausea/Vomiting/Diarrhea Stated complaint: covid+, kidney infection Time Seen by Provider: 11/17/23 10:18 Mode of Arrival: Ambulatory Source of Information: Patient Limitations: No Limitations Description of Symptoms (Recalled from ER Triage Doc. by RN): Pt. was sent over from the office by her PCP, Jeffrey Mortensen APRN, for vomiting since 11/11/23. She states she has had chest congestion, shortness of air, vomiting, and diarrhea for 6 days. She states she has not been able to keep down any food since 11/09. She has been drinking since of water but continues to vomit bile. History of Present Illness HPI narrative: This patient is a 73-year-old female with a history of esophageal dysphagia with multiple esophageal dilatations in the past, esophageal carcinoma status post chemo and radiation, GERD, diabetes, and prior cholecystectomy presenting to the emergency department for evaluation with concern for nausea, vomiting, and inability to tolerate oral intake. She states that she thinks that she has COVID and a kidney infection. She notes that she initially started out with abdominal issues, diarrhea, nausea, and vomiting last week on 11/10/2023. She was seen in [facility] 11/14/2023 and was diagnosed with a UTI. I reviewed urinalysis and noted that was grossly contaminated with squamous cells. She was sent home with Macrobid, and she states she is not been any better because she has not been able to keep it down. She notes that she has not been passing gas or having bowel movements. Her last 1 was 5 days ago. She notes she is only been able to tolerate sips of water but otherwise everything else comes back up. She also notes generalized abdominal pain and discomfort. She went to her PCPs office today for follow-up and was promptly sent over here for evaluation given her symptoms. Related Data Home Medications ?Medication ?Instructions ?Recorded ?Confirmed ergocalciferol (vitamin D2) 1,250 1,250 mcg PO WEEKLY 11/14/23 11/17/23 mcg (50,000 unit) capsule (Vitamin D2) esomeprazole magnesium 40 mg 40 mg PO BID 11/14/23 11/17/23 capsule,delayed release lidocaine 4 % topical patch 1 patch topical DAILY 11/14/23 11/17/23 meloxicam 7.5 mg tablet 7.5 mg PO DAILY 11/14/23 11/17/23 metformin 500 mg tablet,extended 500 mg PO DAILY 11/14/23 11/17/23 release 24 hr metoclopramide HCl 10 mg tablet 10 mg PO ACHS 11/14/23 11/17/23 tizanidine 2 mg tablet 2 mg PO Q6HP PRN Muscle Spasm 11/14/23 11/17/23 ondansetron 4 mg disintegrating 4 mg PO Q8HP PRN Nausea 11/17/23 11/17/23 tablet Previous Rx's ?Medication ?Instructions ?Recorded nitrofurantoin 100 mg PO BID 5 days #10 caps 11/14/23 monohydrate/macrocrystals 100 mg capsule (Macrobid) Allergies Allergy/AdvReac Type Severity Reaction Status Date / Time milk Allergy Mild Vomiting Verified 11/17/23 09:37 promethazine [From Phenergan] Allergy Mild whole body Verified 11/17/23 09:37 aches egg AdvReac Severe Vomiting Verified 11/17/23 09:37 PFSH PFSH Disclaimer: The information contained in this section may have been updated after the patient was seen, as this information can be updated by other users. Medical History Diabetes Migraine History of throat cancer Surgical History History of surgery Hx laparoscopic cholecystectomy Hx of esophagogastroduodenoscopy Hx of right BKA History of hand surgery Family History Other Family history of cancer Family history of diabetes mellitus type II Family history of hypothyroidism Family history of stroke Social History Smoking Status: Never smoker second hand exposure: No alcohol intake: never substance use type: denies use current occupational status: retired Travel in the last 8 weeks: None adopted: No caregiver/support person: No foster care: No household members: none housing: house lives independently: Yes marital status: single education level: high school service: No half-way: No current occupation: Retired current occupational exposures/hazards: No caffeine: Yes special rey needs: No agree to transfusion: No do you feel safe at home: Yes victim of physical abuse: No victim of emotional abuse: No victim of sexual abuse: No would you like helpful sources: No Other Medical History Have you received the Flu Vaccine for this season: Yes Have you received the Pneumonia Vaccine: Yes ROS Obtained: Yes All systems reviewed & no additional complaints except as documented Physical Exam General General appearance: alert and in no apparent distress Head Head exam: atraumatic and normocephalic Eye Eye exam: Present normal appearance, PERRL and EOMI ENT ENT exam: Present normal exam, normal oropharynx, mucous membranes moist and normal external ear exam Neck Neck exam: Present normal inspection, full ROM and trachea midline; Absent tenderness Chest Chest inspection: Present normal inspection and symmetric chest wall rise; Absent tenderness Respiratory Respiratory exam: Present normal lung sounds bilaterally; Absent respiratory distress, wheezes, stridor or accessory muscle use Cardiovascular Cardiovascular exam: Present regular rate and normal rhythm Abdominal Exam Abdominal exam: Present soft and tenderness (Generalized); Absent distention, guarding, rebound or rigidity Extremities Exam Extremities exam: Present normal inspection, full ROM and normal capillary refill; Absent tenderness or edema Back Exam Back exam: Present normal inspection and full ROM; Absent tenderness Neurological Exam Neurological exam: Present alert, oriented X3, CN II-XII intact and normal gait; Absent motor sensory deficit Psychiatric Psychiatric exam: Present normal affect and normal mood Skin Skin exam: Present warm and dry Medical Decision Making Medical Records Medical records reviewed: Yes I reviewed the patient's medical records. Screening: Per USPSTF and CDC recommendations, given the prevalence of disease in our region, it is our hospital?s policy to screen for HIV and viral Hepatitis for all patients aged 18 and over and those with ongoing risk factors. Sukhdeep Inquiry Pt receiving controlled substance: No Vital Signs: 11/17/23 10:26 11/17/23 10:30 11/17/23 11:01 Temperature 97.6 F Temperature Source Temporal Artery Scan Pulse Rate 88 90 Pulse Rate [Right Brachial] 83 Respiratory Rate 18 Blood Pressure 126/53 L 123/65 Blood Pressure [Right Arm] 137/58 L Blood Pressure Mean [Right Arm] 84 Blood Pressure Source Blood Pressure Source [Right Arm] Automatic Cuff Blood Pressure Position Blood Pressure Position [Right Arm] Sitting 02 Sat by Pulse Oximetry 97 97 97 Oxygen Delivery Method Room Air Room Air 11/17/23 11:30 11/17/23 12:00 11/17/23 12:57 Temperature Temperature Source Pulse Rate 92 H 89 95 H Pulse Rate [Right Brachial] Respiratory Rate Blood Pressure 95/40 L 122/53 L 149/74 H Blood Pressure [Right Arm] Blood Pressure Mean [Right Arm] Blood Pressure Source Blood Pressure Source [Right Arm] Blood Pressure Position Blood Pressure Position [Right Arm] 02 Sat by Pulse Oximetry 94 L 93 L 96 Oxygen Delivery Method Room Air Room Air 11/17/23 13:46 11/17/23 14:00 11/17/23 14:20 Temperature 98.1 F Temperature Source Pulse Rate 90 86 69 Pulse Rate [Right Brachial] Respiratory Rate 16 Blood Pressure 115/52 L 110/46 L 108/66 L Blood Pressure [Right Arm] Blood Pressure Mean [Right Arm] Blood Pressure Source Automatic Cuff Blood Pressure Source [Right Arm] Blood Pressure Position Sitting Blood Pressure Position [Right Arm] 02 Sat by Pulse Oximetry 93 L 95 Oxygen Delivery Method Room Air Room Air Room Air Lab Data Lab results reviewed: Yes I reviewed the patient's lab results. Lab Results 11/17/23 10:46: Urine Color Yellow, Urine Appearance Sl cloudy, Urine pH 6.0, Ur Specific Morton >= 1.030, Urine Protein 1+ A, Urine Glucose (UA) Negative, Urine Ketones 2+, Urine Blood 2+ A, Urine Nitrate Negative, Urine Bilirubin 1+ A , Urine Urobilinogen 0.2, Ur Leukocyte Esterase Trace, Urine RBC Occasional, Urine WBC 20-50, Ur Squamous Epith Cells 5-10, Urine Bacteria 1+ 11/17/23 10:56: WBC 15.6 H, RBC 5.18, Hgb 15.1, Hct 47.1 H, MCV 91.0, MCH 29.2, MCHC 32.1, RDW 14.2, Plt Count 213, MPV 7.8, Neut % (Auto) 88.3 H, Lymph % (Auto) 8.3 L, Haskell % (Auto) 3.1, Eos % (Auto) 0.2, Baso % (Auto) 0.1, Neut # (Auto) 13.7 H, Lymph # (Auto) 1.3, Haskell # (Auto) 0.5, Eos # (Auto) 0.0, Baso # (Auto) 0.0, Total Counted 100, Neutrophils % (Manual) 96 H, Lymphocytes % (Manual) 4 L, Platelet Estimate Normal, RBC Morphology Normal, PT 11.3, INR 1.01, Sodium 137, Potassium 3.7, Chloride 94 L, Carbon Dioxide 29, Anion Gap 17.7 H, BUN 55 H, Creatinine 1.20 H, Estimated Creat Clear 46, Estimated GFR 44 L, Est GFR ( Amer) 53 L, Glucose 171 H, Lactate 2.3 H, Calcium 9.9, P hosphorus 2.4 L, Magnesium 2.2, Total Bilirubin 1.1, AST 50 H, ALT 46, Alkaline Phosphatase 101, Total Protein 8.2, Albumin 4.8, Globulin 3.4 H, Albumin/Globulin Ratio 1.4, Lipase 313 H, HIV 1&2 Antibody Rapid Nonreactive 11/17/23 10:58: SARS-CoV-2 (PCR) Not detected, Influenza A Untype (PCR) Not detected, Influenza Type B (PCR) Not detected 11/17/23 10:56 11/17/23 10:56 Orders (Tests/Meds): ED MEDICATIONS Generic Name Dose Route Start Last Admin Trade Name Freq PRN Reason Stop Dose Admin Acetaminophen 650 mg 11/17/23 13:48 Acetaminophen 325mg Tab PO 12/17/23 13:47 Q4HP PRN Fever or Mild Pain (1-3) Enoxaparin Sodium 40 mg 11/18/23 09:00 Enoxaparin 40mg/0.4ml Syringe SQ 12/18/23 08:59 DAILY YOSEF Lactated Ringer's 1,000 mls @ 100 mls/hr 11/17/23 14:00 Lactated Ringer's 1000 Ml Bag IV 12/17/23 13:59 .Q10H YOSEF Nicotine 21 mg 11/17/23 13:48 Nicotine 21mg/24hr Patch TD 12/17/23 13:47 DAILYP PRN Nicotine Cravings Promethazine HCl 25 mg 11/17/23 13:48 Promethazine Hcl 25mg/Ml 1ml Vial IV 12/17/23 13:47 Q6HP PRN Nausea And Vomiting Sodium Chloride 10 ml 11/17/23 13:00 Sodium Chloride 0.9% 10ml Vial IV 12/17/23 12:59 NEEDED PRN dilute protonix Sodium Chloride 10 ml 11/17/23 13:58 Sodium Chloride 0.9% 10ml Flush Syringe IV 12/17/23 13:57 NEEDED PRN Maintain IV Site Discontinued Medications Generic Name Dose Route Start Last Admin Trade Name Freq PRN Reason Stop Dose Admin Acetaminophen 1,000 mg 11/17/23 10:51 11/17/23 11:15 Acetaminophen 1,000mg/100ml Vial IV 11/17/23 10:52 1,000 mg ONCE ONE Administration Lactated Ringer's 1,000 mls @ 999 mls/hr 11/17/23 10:51 11/17/23 11:15 Lactated Ringer's 1000 Ml Bag IV 11/17/23 11:51 999 mls/hr .Q1H1M ONE Administration Lactated Ringer's 1,710 mls @ 855 mls/hr 11/17/23 13:00 11/17/23 13:24 Lactated Ringer's 1000 Ml Bag 30 ml/kg infuse over 2 hr (1710 ml) 11/17/23 14:59 Not Given IV .Q2H ONE Lactated Ringer's 1,710 mls @ 855 mls/hr 11/17/23 13:23 11/17/23 13:30 Lactated Ringer's 1000 Ml Bag 30 ml/kg infuse over 2 hr (1710 ml) 11/17/23 15:22 855 mls/hr IV Administration .Q2H ONE Ceftriaxone Sodium 2 gm/ 100 mls @ 200 mls/hr 11/17/23 13:44 11/17/23 14:22 Sodium Chloride IV 11/17/23 14:13 200 mls/hr ONCE ONE Administration Iopamidol 75 ml 11/17/23 12:31 11/17/23 12:31 Iopamidol-370 (76%);100ml Bottle IV 11/17/23 12:32 75 ml ONCE ONE Administration Metoclopramide HCl 5 mg 11/17/23 13:00 11/17/23 13:25 Metoclopramide Hcl 10mg/2ml Vial IVP 11/17/23 13:01 5 mg ONCE ONE Administration Ondansetron HCl 4 mg 11/17/23 10:51 11/17/23 11:15 Ondansetron 4mg/2ml Vial IV 11/17/23 10:52 4 mg ONCE ONE Administration Pantoprazole Sodium 40 mg 11/17/23 13:00 11/17/23 13:29 Pantoprazole 40mg Vial IV 11/17/23 13:01 40 mg ONCE ONE Administration Sodium Chloride 10 ml 11/17/23 12:31 11/17/23 12:31 Sodium Chloride 0.9% 10ml Syr (Rad Only) IV 12/17/23 12:30 10 ml NEEDED PRN Administration Maintain IV Site Sodium Chloride 25 ml 11/17/23 13:48 Sodium Chloride 0.9% 25ml Bag IV 11/17/23 13:49 ONCE ONE ORDERS Category Date Time Status CT abdomen pelvis w con Stat Cat Scan 11/17/23 10:40 Completed Basic Metabolic Panel [facility] Lab 11/18/23 06:00 Ordered Basic Metabolic Panel [facility] Lab 11/19/23 06:00 Ordered Basic Metabolic Panel [facility] Lab 11/20/23 06:00 Ordered Basic Metabolic Panel [facility] Lab 11/21/23 06:00 Ordered Basic Metabolic Panel [facility] Lab 11/22/23 06:00 Ordered Complete Blood Count Auto Diff [facility] Lab 11/18/23 06:00 Ordered Complete Blood Count Auto Diff [facility] Lab 11/19/23 06:00 Ordered Complete Blood Count Auto Diff [facility] Lab 11/20/23 06:00 Ordered Complete Blood Count Auto Diff [facility] Lab 11/21/23 06:00 Ordered Complete Blood Count Auto Diff [facility] Lab 11/22/23 06:00 Ordered Complete Blood Count Auto Diff Stat Lab 11/17/23 10:56 Completed Comprehensive Metabolic Panel Stat Lab 11/17/23 10:56 Completed HIV (1&2) Antibody Rapid Stat Lab 11/17/23 10:56 Completed Hep C Ab with Reflex to RNA Stat Lab 11/17/23 10:56 Received INR [Prothrombin Time INR] Stat Lab 11/17/23 10:56 Completed Lactic Acid [facility] Lab 11/18/23 06:00 Ordered Lactic Acid Stat Lab 11/17/23 10:56 Completed Lipase Stat Lab 11/17/23 10:56 Completed MAG [Magnesium] Stat Lab 11/17/23 10:56 Completed Magnesium [facility] Lab 11/18/23 06:00 Ordered PHOS [Phosphorous] Stat Lab 10/03/24 10:56 Completed Phosphorous [facility] Lab 11/18/23 06:00 Ordered Rapid PCR Covid and Flu A/B Stat Lab 11/17/23 10:58 Completed UA [Urinalysis and Microscopic] Stat Lab 11/17/23 10:46 Completed Blood Culture Stat Micro 11/17/23 14:16 Received Urine Culture Stat Micro 11/17/23 10:46 Received ECG Data Tracing #1: I reviewed this ECG and interpreted as documented below: Normal sinus rhythm with a ventricular rate of 90 bpm. Left anterior fascicular block noted. No acute ST changes concerning for ischemia ECG initial impression date: 11/17/23 ECG initial impression time: 11:08 Medical Decision Narrative: In summary, this patient is a 73-year-old female presenting to the Emergency Department for evaluation of generalized abdominal pain, nausea, vomiting, inability to have a bowel movement, and inability to tolerate oral intake. Differential diagnoses considered include but are not limited to appendicitis, gastroenteritis, colitis, bowel obstruction, constipation, dehydration, electrolyte derangements, KARI, pyelonephritis, sepsis. Ruling out the most morbid conditions drove assessment. It should be noted patient's history includes diabetes and extensive esophageal history which may or may not be at goal therapy. This complicates all aspects of care by increasing patient's risk for morbidity. I reviewed patient's past medical records and noted previous GI evaluations for her esophageal issues in the past as well as previous [facility] evaluation 11/14/2023 and PCP evaluation today. On exam, the patient is lying in bed in no acute distress with normal vital signs on cardiac telemetry. She has generalized abdominal tenderness but no rebound or guarding. She is alert, oriented, and conversational it is nontoxic- appearing. Workup included CBC, CMP, lipase, lactic acid, magnesium, phosphorus, urinalysis, urine culture, EKG, and CT abdomen pelvis with IV contrast. She was given a bolus of IV fluids as well as IV Zofran and acetaminophen for symptomatic improvement. I independently interpreted CT scan prior to the radiologist read and noted no obvious concerns for obstructive process but she does have esophageal wall thickening. Please see their read for final interpretation. Labs were obtained that demonstrated KARI, leukocytosis, elevated lactic acid. Urine is concerning for infection. On multiple subsequent reassessments, she has no symptomatic improvement. She was given Reglan and pantoprazole, but she states she still feels very bad and very sick to her stomach. Blood cultures were sent and she was started on IV Rocephin with concerns for UTI. She is not febrile, tachycardic, or tachypneic, but she does have a leukocytosis and elevated lactic acid with a known source of infection. Ultimately given this as well as her lack of improvement in symptoms, I feel she would benefit from admission for continued symptomatic management and observation. I had an interactive discussion with the hospitalist who admitted the patient Critical Care Critical Care Time Critical Care Time: No
--- NOTE | 2023-11-17 11:05 | ECG_ITS ---
APPROVED REPORT Exam: Resting ECG HR:90 bpm ECG Measurements Heart Rate 90 AXES ME 158 P 50 QRSd 105 QRS -51 QT 352 T 3 QTc 400 Conclusion SINUS RHYTHM LOW QRS VOLTAGE IN PRECORDIAL LEADS [QRS DEFLECTION < 1.0 mV IN CHEST LEADS] LEFT ANTERIOR FASCICULAR BLOCK [QRS AXIS <= -45, QR IN I, RS IN II] POSSIBLE ANTERIOR MYOCARDIAL INFARCTION , OF INDETERMINATE AGE [30 ms Q WAVE IN V3/V4, OR R < 0.2 mV IN V4] ABNORMAL ECG Electronically signed by : JOSH PETERSON, 11/17/2023 15:31:51
[2023-11-17 11:08] LABS: Basophils % 0.1 % (0.1-2.0); Eosinophils % 0.2 % (0.1-12.0); Hematocrit 47.1 % (37.0-47.0); Hemoglobin 15.1 g/dL (12.2-16.2); Lymphocytes # 1.3 K/mm3 (0.7-4.5); Lymphocytes % 8.3 % (10-50); Mean Corpuscular HGB Conc 32.1 g/dL (31.8-35.4); Mean Corpuscular Hemoglobin 29.2 pg (27.0-31.2); Mean Platelet Volume 7.8 fl (7.4-10.4); Monocytes # 0.5 K/mm3 (0.1-1.0); Monocytes % 3.1 % (1.7-9.3); Neutrophils # 13.7 K/mm3 (1.8-7.8); Neutrophils % 88.3 % (37.0-80.0); Platelet Count 213 K/mm3 (142-424); Red Blood Count 5.18 M/mm3 (4.20-5.40); Red Cell Distribution Width 14.2 % (11.5-17.5); White Blood Count 15.6 K/mm3 (4.8-10.8)
[2023-11-17 11:12] LABS: Coronavirus 19, PCR Not Detected (NotDetected); Influenza A, PCR Not Detected (NotDetected); Influenza B, PCR Not Detected (NotDetected)
[2023-11-17] MEDS: ONDANSETRON 4MG/2ML VIAL 4 MG IV ×2 (11:15→20:37)
[2023-11-17] MEDS: LACTATED RINGERS 1000ML 1,000 ML 999 ML IV (11:15)
[2023-11-17] MEDS: ACETAMINOPHEN 1,000MG/100ML VIAL 1000 MG IV (11:15)
[2023-11-17 11:16] LABS: Microscopic, Urine URINE MICROSCOPIC (MICROSCOPIC)
[2023-11-17 11:18] LABS: MANUAL DIFFERENTIAL MANUAL DIFFERENTIAL (MANUAL DIFF)
[2023-11-17 11:26] LABS: INR 1.01 (0.9-1.1); Prothrombin Time 11.3 seconds (10.1-12.5)
[2023-11-17 11:28] LABS: Albumin Level 4.8 g/dl (3.5-5.0); Chloride 94 mmol/L (98-107); Potassium 3.7 mmoL/L (3.5-5.1); Sodium 137 mmol/L (136-145)
[2023-11-17 11:31] LABS: Alanine Aminotransferase 46 U/L (12-78); Albumin/Globulin Ratio 1.4 (1.1-1.8); Alkaline Phosphatase 101 U/L (38-126); Anion Gap 17.7 mEq/L (5-15); Aspartate Amino Transferase 50 U/L (14-36); Bilirubin,Total 1.1 mg/dl (0.2-1.3); Blood Urea Nitrogen 55 mg/dl (7-17); Carbon Dioxide 29 mmol/L (22.0-30.0); Creatinine Clearance Estimated 46 mL/min (50-200); Estimated Glomerular Filt Rate 44 ml/min (>60); GFR (African American) 53 ML/MIN (>60); Globulin 3.4 g/dL (1.3-3.2); Lipase 313 U/L (23-300); Phosphorous 2.4 mg/dl (2.5-4.5); Total Protein,Serum 8.2 g/dl (6.3-8.2)
[2023-11-17 11:31] LABS: Appearance,Urine SL CLOUDY (Clear); Blood, Urine 2+ (Negative); Color,Urine YELLOW (Yellow); Glucose,Urine (UA) Negative (Negative); Ketones,Urine 2+ (Negative); Leukocyte Esterase,Urine TRACE (Negative); Nitrate,Urine Negative (Negative); Protein,Urine 1+ (Negative); Specific Gravity, Urine >= 1.030 (1.005-1.030); Urobilinogen,Urine 0.2 EU/dl (0.2)
[2023-11-17 11:32] LABS: Calcium 9.9 mg/dl (8.4-10.2); Glucose 171 mg/dl (74-100); Magnesium 2.2 mg/dl (1.6-2.3)
[2023-11-17 11:33] LABS: Lactic Acid 2.3 mmol/L (0.7-2.1)
[2023-11-17 11:44] LABS: Bilirubin,Urine 1+ (Negative)
[2023-11-17 11:57] LABS: Bacteria,Urine 1+ /lpf; RBC,Urine Occasional #/hpf (0-3); WBC,Urine 20-50 #/hpf (0-3)
[2023-11-17 12:02] LABS: Lymphocytes % 4 % (10-50); Neutrophils % 96 % (42-76); Platelet Estimate Normal; RBC Morphology Normal; Total Cells Counted 100
--- NOTE | 2023-11-17 12:23 | PC.NURSE ---
Pt out of room with Rad for CT
[2023-11-17] MEDS: SODIUM CHLORIDE 0.9% 10ML SYR (RAD ONLY) 10 ML IV (12:31)
[2023-11-17] MEDS: IOPAMIDOL-370 (76%);100ML BOTTLE 75 ML IV (12:31)
--- NOTE | 2023-11-17 12:38 | PC.NURSE ---
Pt back in room
[2023-11-17 12:54] LABS: HIV (1&2) Antibody Rapid NONREACTIVE (NONREACTIVE)
--- NOTE | 2023-11-17 12:55 | PC.NURSE ---
Dr. Ryan at bedside
[2023-11-17] MEDS: METOCLOPRAMIDE HCL 10MG/2ML VIAL 5 MG IVP (13:25)
[2023-11-17] MEDS: PANTOPRAZOLE 40MG VIAL 40 MG IV (13:29)
[2023-11-17] MEDS: LACTATED RINGERS 1000ML 1,710 ML 855 ML IV (13:30)
--- NOTE | 2023-11-17 13:49 | PC.NURSE ---
I notified the HS of the need for a bed for admission.
--- NOTE | 2023-11-17 13:56 | HMH.PHAINT1 ---
Pharmacy Intervention Comments: MEDICATION RECONCILIATION COMPLETED ON PATIENT USING EXTERNAL FILL HISTORY FROM PHARMACY AND LIST FROM PCP OFFICE. -PONCHO [facility], [place]
--- NOTE | 2023-11-17 14:21 | PC.NURSE ---
blood cultures obtained from US placed IV. pt is difficult stick, multiple straight sticks attempted with no success.
[2023-11-17] MEDS: CEFTRIAXONE SODIUM 2 GM in 0.9 % SODIUM CHLORIDE 100 ML IV (14:22)
--- NOTE | 2023-11-17 14:44 | PC.NURSE ---
PATIENT ARRIVED TO FLOOR BY WHEELCHAIR AT [address], [place]
[2023-11-17 15:03] LABS: Reflex Lactic Add Lactic Reflex
[2023-11-17] MEDS: LACTATED RINGERS 1000ML 1,000 ML 100 ML IV (15:29)
[2023-11-17 16:08] LABS: Lactic Acid Follow Up (RFLX 1) 1.6 mmol/L (0.7-2.1)
--- NOTE | 2023-11-17 17:11 | PC.WOUNDNOTE ---
buttocks, redness and scars
[2023-11-17 17:13] LABS: POC Glucose,Bedside 103 (70-110)
--- NOTE | 2023-11-17 19:23 | EXP.HP ---
History of Present Illness *Admission Date: 11/17/23 *Reason for visit:: Intractable nausea/vomiting, UTI *History of present illness: Xuan Fields is a 73-year-old female with a medical history significant for esophageal carcinoma s/p chemotherapy in remission, esophageal stricture s/p dilation, type 2 diabetes presents from home for intractable nausea/vomiting and weakness for the past several days. She states she had some roast beef last and began having nausea/vomiting since Tuesday. She had diarrhea until Tuesday. Denies chest pain, shortness of breath. Workup in the ED significant for WBC 15.6, AGAP 17, creatinine 1.2 (baseline 0.9). UA positive for WBC, bacteria, trace leukocyte esterase. CT abdomen/pelvis showed abnormal mucosal thickening of the distal esophagus likely related to reflux. Case was discussed with the ED attending and decision was made to admit patient for intractable nausea/vomiting, UTI PFSH PFS Disclaimer: The information contained in this section may have been updated after the patient was seen, as this information can be updated by other users. Medical History Diabetes Migraine History of throat cancer Surgical History History of surgery Hx laparoscopic cholecystectomy Hx of esophagogastroduodenoscopy Hx of right BKA History of hand surgery Family History Other Family history of cancer Family history of diabetes mellitus type II Family history of hypothyroidism Family history of stroke Social History Smoking Status: Never smoker second hand exposure: No alcohol intake: never substance use type: denies use current occupational status: retired Travel in the last 8 weeks: None adopted: No caregiver/support person: No foster care: No household members: none housing: house lives independently: Yes marital status: single education level: high school service: No mcc: No current occupation: Retired current occupational exposures/hazards: No caffeine: Yes special rey needs: No agree to transfusion: No do you feel safe at home: Yes victim of physical abuse: No victim of emotional abuse: No victim of sexual abuse: No would you like helpful sources: No Other Medical History Have you received the Flu Vaccine for this season: Yes Have you received the Pneumonia Vaccine: Yes Meds Home Medications and Allergies Home Medications ?Medication ?Instructions ?Recorded ?Confirmed ?Type ergocalciferol (vitamin D2) 1,250 1,250 mcg PO WEEKLY 11/14/23 11/17/23 History mcg (50,000 unit) capsule (Vitamin D2) esomeprazole magnesium 40 mg 40 mg PO BID 11/14/23 11/17/23 History capsule,delayed release lidocaine 4 % topical patch 1 patch topical DAILY 11/14/23 11/17/23 History meloxicam 7.5 mg tablet 7.5 mg PO DAILY 11/14/23 11/17/23 History metformin 500 mg tablet,extended 500 mg PO DAILY 11/14/23 11/17/23 History release 24 hr metoclopramide HCl 10 mg tablet 10 mg PO ACHS 11/14/23 11/17/23 History nitrofurantoin 100 mg PO BID 5 days #10 caps 11/14/23 11/17/23 Rx monohydrate/macrocrystals 100 mg capsule (Macrobid) tizanidine 2 mg tablet 2 mg PO Q6HP PRN Muscle Spasm 11/14/23 11/17/23 History ondansetron 4 mg disintegrating 4 mg PO Q8HP PRN Nausea 11/17/23 11/17/23 History tablet New Prescriptions to Start Prescriptions: Allergies Allergy/AdvReac Type Severity Reaction Status Date / Time milk Allergy Mild Vomiting Verified 11/17/23 09:37 promethazine [From Phenergan] Allergy Mild whole body Verified 11/17/23 09:37 aches egg AdvReac Severe Vomiting Verified 11/17/23 09:37 Exam Data for Last 24 hours Vital signs and Labs for Last 24 Hours: Temp Pulse Resp BP Pulse Ox O2 Del Method 99.5 F 86 18 119/57 L 95 Room Air 11/17/23 14:45 11/17/23 14:45 11/17/23 14:45 11/17/23 14:45 11/17/23 14:45 11/17/23 18:15 Laboratory Results - last 24 hr 11/17/23 10:46: Urine Color Yellow, Urine Appearance Sl cloudy, Urine pH 6.0, Ur Specific [place] >= 1.030, Urine Protein 1+ A, Urine Glucose (UA) Negative, Urine Ketones 2+, Urine Blood 2+ A, Urine Nitrate Negative, Urine Bilirubin 1+ A, Urine Urobilinogen 0.2, Ur Leukocyte Esterase Trace, Urine RBC Occasional, Urine WBC 20-50, Ur Squamous Epith Cells 5-10, Urine Bacteria 1+ 11/17/23 10:56: WBC 15.6 H, RBC 5.18, Hgb 15.1, Hct 47.1 H, MCV 91.0, MCH 29.2, MCHC 32.1, RDW 14.2, Plt Count 213, MPV 7.8, Neut % (Auto) 88.3 H, Lymph % (Auto) 8.3 L, [place] % (Auto) 3.1, Eos % (Auto) 0.2, Baso % (Auto) 0.1, Neut # (Auto) 13.7 H, Lymph # (Auto) 1.3, [place] # (Auto) 0.5, Eos # (Auto) 0.0, Baso # (Auto) 0.0, Total Counted 100, Neutrophils % (Manual) 96 H, Lymphocytes % (Manual) 4 L, Platelet Estimate Normal, RBC Morphology Normal, PT 11.3, INR 1.01, Sodium 137, Potassium 3.7, Chloride 94 L, Carbon Dioxide 29, Anion Gap 17.7 H, BUN 55 H, Creatinine 1.20 H, Estimated Creat Clear 46, Estimated GFR 44 L, Est GFR ( Amer) 53 L, Glucose 171 H, Lactate 2.3 H, Calcium 9.9, Phosphorus 2.4 L, Magnesium 2.2, Total Bilirubin 1.1, AST 50 H, ALT 46, Alkaline Phosphatase 101, Total Protein 8.2, Albumin 4.8, Globulin 3.4 H, Albumin/Globulin Ratio 1.4, Lipase 313 H, HIV 1&2 Antibody Rapid Nonreactive 11/17/23 10:58: SARS-CoV-2 (PCR) Not detected, Influenza A Untype (PCR) Not detected, Influenza Type B (PCR) Not detected 11/17/23 15:51: Lactate 1.6 11/17/23 17:06: POC Glucose 103 I & O for Last 24 hours: Intake & Output 11/14/23 11/15/23 11/16/23 11/17/23 23:59 23:59 23:59 23:59 Weight 67.387 kg Constitutional Constitutional: no acute distress *Routine HEENT Exam Head: Present normocephalic Eye: Present EOMI and PERRL ENT: Present mucous membranes moist *Routine Neck Exam Neck: Present supple; Absent lymphadenopathy *Routine Respiratory Exam Respiratory: Present CTA bilaterally *Routine Cardiovascular Exam Cardiovascular: Present RRR *Routine Abdominal Exam Abdominal: Present soft and normoactive bowel sounds; Absent tenderness *Routine Rectal Exam Rectal:: deferred *Routine Genitalia Exam Genitalia:: deferred *Routine Extremities Exam Extremities: Absent cyanosis, clubbing or edema *Routine Skin Exam Skin: Present warm; Absent rash *Routine Neurological Exam Neurological: Present alert and oriented X3 Assessment and Plan *Assessment and plan (1) UTI (urinary tract infection): Status: Acute Category: Medical Code(s): N39.0 - Urinary tract infection, site not specified (2) Nausea & vomiting: Status: Acute Category: Medical Code(s): R11.2 - Nausea with vomiting, unspecified Plan Xuan Fields is a 73-year-old female with a medical history significant for esophageal carcinoma s/p chemotherapy in remission, esophageal stricture s/p dilation, type 2 diabetes presents from home for intractable nausea/vomiting and weakness for the past several days. She states she had some roast beef last and began having nausea/vomiting since Tuesday. She had diarrhea until Tuesday. Denies chest pain, shortness of breath. Workup in the ED significant for WBC 15.6, AGAP 17, creatinine 1.2 (baseline 0.9). UA positive for WBC, bacteria, trace leukocyte esterase. CT abdomen/pelvis showed abnormal mucosal thickening of the distal esophagus likely related to reflux. Case was discussed with the ED attending and decision was made to admit patient for intractable nausea/vomiting, UTI. #Intractable nausea/vomiting #UTI ? Unclear if these are related, patient has mild diffuse abdominal pain more prominent in the suprapubic region. ? Initial WBC 15.6. Afebrile, no tachycardia. ? CT abdomen/pelvis unremarkable for significant findings. ? IV fluids at 75 mL/h. ? Clear liquid diet as tolerated. ? Compazine as needed for nausea. ? Ceftriaxone day 1/5 for UTI. ? Follow-up urine, blood cultures. #History of esophageal carcinoma s/p chemotherapy #History of esophageal stricture s/p dilatation ? Follows with [facility] ? Protonix daily #Diabetes ? LDSSI, ACHS glucose checks Full code Lovenox 40mg
[2023-11-17] MEDS: POLYETHYLENE GLYCOL 3350 17 GM PACKET PO (20:37)
[2023-11-17] MEDS: TRAZODONE 50MG TABLET 25 MG PO (20:37)
[2023-11-17 20:52] LABS: POC Glucose,Bedside 116 (70-110)
--- NOTE | 2023-11-17 20:56 | PC.NURSE ---
Addendum entered by Jason Cordova RN 11/18/23 06:34: Still no BM but passing gas by end of shift with c/o nausea, administered zofran per apr. Original Note: patient states she has not had a BM since Tuesday and c/o nausea. Notified Aly - administered PRN miralax and zofran.
[2023-11-18] VITALS: BP 139/66; PULSE 89; RESP 16; TEMP 37; O2SAT 100
[2023-11-18] MEDS: LACTATED RINGERS 1000ML 1,000 ML 100 ML IV ×3 (00:11→20:35)
[2023-11-18 04:00] VITALS: BMI 24.5
[2023-11-18 05:14] LABS: HCV Ab Non Reactive (Non Reactive)
[2023-11-18 06:21] LABS: Basophils % 0.3 % (0.1-2.0); Eosinophils % 0.2 % (0.1-12.0); Hematocrit 37.3 % (37.0-47.0); Lymphocytes # 1.6 K/mm3 (0.7-4.5); Lymphocytes % 16.2 % (10-50); Mean Corpuscular HGB Conc 31.5 g/dL (31.8-35.4); Mean Corpuscular Hemoglobin 29.4 pg (27.0-31.2); Mean Corpuscular Volume 93.5 fl (81-99); Mean Platelet Volume 7.7 fl (7.4-10.4); Monocytes # 0.5 K/mm3 (0.1-1.0); Monocytes % 4.8 % (1.7-9.3); Neutrophils # 7.6 K/mm3 (1.8-7.8); Neutrophils % 78.5 % (37.0-80.0); Platelet Count 131 K/mm3 (142-424); Red Blood Count 3.99 M/mm3 (4.20-5.40); White Blood Count 9.7 K/mm3 (4.8-10.8)
[2023-11-18 06:23] LABS: Lactic Acid 0.9 mmol/L (0.7-2.1)
[2023-11-18] MEDS: ONDANSETRON 4MG/2ML VIAL 4 MG IV (06:30)
[2023-11-18 07:52] LABS: Chloride 100 mmol/L (98-107); Sodium 135 mmol/L (136-145)
[2023-11-18 07:55] LABS: Blood Urea Nitrogen 31 mg/dl (7-17); Carbon Dioxide 32 mmol/L (22.0-30.0); Creatinine Clearance Estimated 53 mL/min (50-200); Estimated Glomerular Filt Rate 70 ml/min (>60); GFR (African American) 85 ML/MIN (>60); Phosphorous 2.3 mg/dl (2.5-4.5)
[2023-11-18 07:56] LABS: Calcium 8.4 mg/dl (8.4-10.2); Glucose 107 mg/dl (74-100); Magnesium 1.8 mg/dl (1.6-2.3)
[2023-11-18 08:00] VITALS: BP 106/60; PULSE 76; RESP 17; TEMP 37; O2SAT 94
[2023-11-18 08:02] LABS: Hemoglobin 11.7 g/dL (12.2-16.2)
[2023-11-18] MEDS: ACETAMINOPHEN 325MG TAB 650 MG PO (08:22)
[2023-11-18] MEDS: POTASSIUM CHLORIDE 20MEQ TAB 40 MEQ PO ×3 (09:23→17:54)
--- NOTE | 2023-11-18 09:40 | ECG_ITS ---
APPROVED REPORT Exam: Resting ECG HR:71 bpm ECG Measurements Heart Rate 71 AXES NC 159 P 41 QRSd 109 QRS -38 QT 382 T -2 QTc 404 Conclusion SINUS RHYTHM LEFT AXIS DEVIATION [QRS AXIS < -30] LOW QRS VOLTAGE IN PRECORDIAL LEADS [QRS DEFLECTION < 1.0 mV IN CHEST LEADS] POSSIBLE ANTERIOR MYOCARDIAL INFARCTION , PROBABLY OLD [30 ms Q WAVE IN V3/V4, OR R < 0.2 mV IN V4] ABNORMAL ECG UNCONFIRMED REPORT Electronically signed by : Ba Pichardo MD 11/18/2023 15:23:51
[2023-11-18] MEDS: ENOXAPARIN 40MG/0.4ML SYRINGE 40 MG SQ (10:15)
[2023-11-18] MEDS: BELLADONNA ALKALOIDS 60 ML ML PO (10:19)
[2023-11-18] MEDS: LIDOCAINE 5% TRANSDERMAL PATCH 1 EACH TP (10:19)
[2023-11-18] MEDS: CEFTRIAXONE SODIUM 1 GM in 0.9 % SODIUM CHLORIDE 50 ML IV (11:36)
[2023-11-18] MEDS: METOCLOPRAMIDE 10MG TABLET 10 MG PO ×3 (11:36→20:34)
[2023-11-18 12:30] VITALS: BMI 24.5
[2023-11-18 16:00] VITALS: BP 128/65; PULSE 80; PULSE 82; RESP 15; TEMP 36.9; O2SAT 95
[2023-11-18] MEDS: OXYCODONE 5MG IMMEDIATE RELEASE TABLET 5 MG PO (16:01)
[2023-11-18 16:03] LABS: POC Glucose,Bedside 88 (70-110)
--- NOTE | 2023-11-18 17:16 | EXP.PN ---
Subjective *Date: 11/18/23 *Time: 17:16 Interval history: Patient continues to complain of nausea, but no vomiting today. She is tolerating a little bit more p.o. intake today. She also states she has low back pain, though a lot of it is chronic. Exam Data for Last 24 hours Vital signs and Labs for Last 24 Hours: Temp Pulse Resp BP Pulse Ox O2 Del Method 98.4 F 82 15 128/65 95 Room Air 11/18/23 16:00 11/18/23 16:00 11/18/23 16:00 11/18/23 16:00 11/18/23 16:00 11/18/23 16:00 Laboratory Results - last 24 hr 11/17/23 10:56: Hepatitis C Antibody Non reactive 11/17/23 20:45: POC Glucose 116 H 11/18/23 05:57: WBC 9.7 D, RBC 3.99 L, Hgb 11.7 L D, Hct 37.3, MCV 93.5, MCH 29.4, MCHC 31.5 L, RDW 14.0, Plt Count 131 L D, MPV 7.7, Neut % (Auto) 78.5, Lymph % (Auto) 16.2, [place] % (Auto) 4.8, Eos % (Auto) 0.2, Baso % (Auto) 0.3, Neut # (Auto) 7.6, Lymph # (Auto) 1.6, [place] # (Auto) 0.5, Eos # (Auto) 0.0, Baso # (Auto) 0.0, Lactate 0.9 11/18/23 07:27: Sodium 135 L, Potassium 3.0 L, Chloride 100, Carbon Dioxide 32 H, Anion Gap 6.0, BUN 31 H D, Creatinine 0.80 D, Estimated Creat Clear 53, Estimated GFR 70, Est GFR ( Amer) 85 D, Glucose 107 H D, Calcium 8.4, Phosphorus 2.3 L, Magnesium 1.8 D 11/18/23 15:56: POC Glucose 88 I & O for Last 24 hours: Intake & Output 11/15/23 11/16/23 11/17/23 11/18/23 23:59 23:59 23:59 23:59 Intake Total 1684 / 1684 Output Total 0 / 0 100 / 100 Balance 0 / 120 1584 / 1584 Weight 67.387 kg 66.8 kg Microbiology Reports for the Last 24 Hours: Microbiology 11/17/23 14:16 Blood Blood Culture - Preliminary NO GROWTH AFTER 24 HOURS 11/17/23 14:10 Blood Blood Culture - Preliminary NO GROWTH AFTER 24 HOURS Constitutional Constitutional: no acute distress *Routine HEENT Exam Head: Present normocephalic Eye: Present EOMI and PERRL ENT: Present mucous membranes moist *Routine Neck Exam Neck: Present supple; Absent lymphadenopathy *Routine Respiratory Exam Respiratory: Present CTA bilaterally *Routine Cardiovascular Exam Cardiovascular: Present RRR *Routine Abdominal Exam Abdominal: Present soft and normoactive bowel sounds; Absent tenderness Comments: Tenderness to palpation over the lumbar spine without step-offs. *Routine Extremities Exam Extremities: Absent cyanosis, clubbing or edema Comments: Right below-knee amputation. *Routine Skin Exam Skin: Present warm; Absent rash *Routine Neurological Exam Neurological: Present alert and oriented X3 Assessment and Plan *Assessment and plan (1) UTI (urinary tract infection): Status: Acute Category: Medical Code(s): N39.0 - Urinary tract infection, site not specified (2) Nausea & vomiting: Status: Acute Category: Medical Code(s): R11.2 - Nausea with vomiting, unspecified Plan Xuan Fields is a 73-year-old female with a medical history significant for esophageal carcinoma s/p chemotherapy in remission, esophageal stricture s/p dilation, type 2 diabetes presents from home for intractable nausea/vomiting and weakness for the past several days. She states she had some roast beef last and began having nausea/vomiting since Tuesday. She had diarrhea until Tuesday. Denies chest pain, shortness of breath. Workup in the ED significant for WBC 15.6, AGAP 17, creatinine 1.2 (baseline 0.9). UA positive for WBC, bacteria, trace leukocyte esterase. CT abdomen/pelvis showed abnormal mucosal thickening of the distal esophagus likely related to reflux. Case was discussed with the ED attending and decision was made to admit patient for intractable nausea/vomiting, UTI. #Intractable nausea #Esophagitis #History of esophageal carcinoma s/p chemotherapy #History of esophageal stricture s/p dilatation ? Follows with [facility] ? CT abdomen/pelvis does suggest distal esophagitis, unclear how chronic this is. ? Patient exhibits choking symptoms with pills today, but tolerates liquids well. ? Given complex history, GI consulted and pending further recommendations. ? [employer] consulted, pending recommendations. ? Increased Protonix to 40 mg twice daily. ? Bed elevation. #UTI ? Unclear if these are related, patient has mild diffuse abdominal pain more prominent in the suprapubic region. ? Initial WBC 15.6?improved to 9.7 today. Afebrile, no tachycardia. ? CT abdomen/pelvis does reveal mucosal thickening throughout the distal esophagus, possibly from reflux. ? IV fluids at 75 mL/h as patient is minimally tolerating p.o. intake. ? Clear liquid diet as tolerated. ? Compazine as needed for nausea. Patient states Phenergan alters her with confusion. ? Ceftriaxone day 2/5 for UTI. ? Follow-up urine, blood cultures. #Diabetes ? LDSSI, ACHS glucose checks Full code Lovenox 40mg
[2023-11-18] MEDS: TIZANIDINE 4MG TABLET 4 MG PO (17:42)
[2023-11-18] MEDS: KETOROLAC 30MG/ML VIAL 30 MG IV (17:44)
--- NOTE | 2023-11-18 18:04 | PC.NURSE ---
patient is A/O x4 and tolerating RA. she has c/o pain and nausea throughout shift, treated per APR and notified MD. glucose levels have been WDL. lidocaine patch applied to lower middle back earlier in shift, pt states pain persists, MD notified. pt now voids per vanessa. still no BM today. pt has been turned Q2 hrs. no further requests at this time, call light within reach.
--- NOTE | 2023-11-18 18:11 | PC.NURSE ---
notified this AM of a critical potassium value of 3.0, treated per protocol this shift.
[2023-11-18 19:52] VITALS: BP 75/50; PULSE 67; RESP 16; TEMP 36.6; O2SAT 97
[2023-11-18 20:00] VITALS: PULSE 70
--- NOTE | 2023-11-18 20:15 | PC.NURSE ---
Contacted Dr. Alfredo at this time. Pt BP 78/50 in left arm, 82/46 in right arm. New orders for LR 500 bolus @ 250. MD at bedside.
[2023-11-18 20:25] LABS: POC Glucose,Bedside 136 (70-110)
[2023-11-18] MEDS: PANTOPRAZOLE 40MG TABLET 40 MG PO (20:34)
[2023-11-18] MEDS: LACTATED RINGERS 1000ML 500 ML 250 ML IV (20:45)
[2023-11-18] MEDS: SUCRALFATE 1GM/10ML SUSP UDC 1 GM PO (21:58)
[2023-11-19] VITALS: BP 119/63; PULSE 74; PULSE 80; RESP 16; TEMP 36.5; O2SAT 94
[2023-11-19] MEDS: KETOROLAC 30MG/ML VIAL 30 MG IV (00:24)
[2023-11-19 01:12] LABS: POC Glucose,Bedside 124 (70-110)
[2023-11-19 01:12] LABS: POC Glucose,Bedside 114 (70-110)
[2023-11-19] MEDS: ACETAMINOPHEN 325MG TAB 650 MG PO (02:15)
[2023-11-19] MEDS: ONDANSETRON 4MG/2ML VIAL 4 MG IV (02:55)
[2023-11-19 04:00] VITALS: BP 131/64; PULSE 70; PULSE 75; RESP 16; TEMP 37.1; O2SAT 94; BMI 25.8
[2023-11-19] MEDS: OXYCODONE 5MG IMMEDIATE RELEASE TABLET 5 MG PO (05:34)
[2023-11-19] MEDS: SUCRALFATE 1GM/10ML SUSP UDC 1 GM PO ×3 (05:36→22:06)
[2023-11-19] MEDS: METOCLOPRAMIDE 10MG TABLET 10 MG PO ×4 (05:37→22:06)
[2023-11-19] MEDS: POLYETHYLENE GLYCOL 3350 17 GM PACKET PO (05:43)
[2023-11-19 06:56] LABS: POC Glucose,Bedside 100 (70-110)
--- NOTE | 2023-11-19 07:28 | PC.NURSE ---
Pt is A&O x4. Pt has c/o this shift and has been treated per MAR. Pt had not urinated and abdomen was distended. this nurse scanned pt bladder (777ml). Spoke to Dr. Alfredo in person, orders for [place] 16F. Pt had 900ml out since placement. Pt tolerated well. Pt admitted to pain gettig better.
[2023-11-19 08:00] VITALS: BP 128/64; PULSE 77; PULSE 80; RESP 18; TEMP 36.5; O2SAT 94
[2023-11-19] MEDS: ENOXAPARIN 40MG/0.4ML SYRINGE 40 MG SQ (08:17)
[2023-11-19] MEDS: PANTOPRAZOLE 40MG TABLET 40 MG PO ×2 (08:17→22:06)
[2023-11-19] MEDS: CEFTRIAXONE SODIUM 1 GM in 0.9 % SODIUM CHLORIDE 50 ML IV (11:53)
[2023-11-19 12:00] VITALS: PULSE 80
[2023-11-19 12:17] LABS: POC Glucose,Bedside 92 (70-110)
[2023-11-19 14:03] LABS: Basophils % 0.5 % (0.1-2.0); Eosinophils # 0.1 K/mm3 (0.0-0.4); Eosinophils % 1.6 % (0.1-12.0); Hematocrit 38.1 % (37.0-47.0); Hemoglobin 11.8 g/dL (12.2-16.2); Lymphocytes # 1.1 K/mm3 (0.7-4.5); Mean Corpuscular HGB Conc 30.9 g/dL (31.8-35.4); Mean Corpuscular Hemoglobin 28.9 pg (27.0-31.2); Mean Corpuscular Volume 93.6 fl (81-99); Mean Platelet Volume 8.2 fl (7.4-10.4); Monocytes # 0.3 K/mm3 (0.1-1.0); Monocytes % 4.1 % (1.7-9.3); Neutrophils # 6.5 K/mm3 (1.8-7.8); Neutrophils % 79.7 % (37.0-80.0); Platelet Count 117 K/mm3 (142-424); Red Blood Count 4.07 M/mm3 (4.20-5.40); Red Cell Distribution Width 13.8 % (11.5-17.5); White Blood Count 8.1 K/mm3 (4.8-10.8)
[2023-11-19 14:11] LABS: Chloride 101 mmol/L (98-107); Sodium 130 mmol/L (136-145)
[2023-11-19 14:12] LABS: Potassium 3.8 mmoL/L (3.5-5.1)
[2023-11-19 14:14] LABS: Blood Urea Nitrogen 22 mg/dl (7-17); Carbon Dioxide 22 mmol/L (22.0-30.0); Creatinine Clearance Estimated 56 mL/min (50-200); Estimated Glomerular Filt Rate 82 ml/min (>60); GFR (African American) 99 ML/MIN (>60)
[2023-11-19 14:15] LABS: Anion Gap 10.8 mEq/L (5-15); Glucose 160 mg/dl (74-100)
[2023-11-19 16:00] VITALS: BP 120/69; PULSE 80; PULSE 82; RESP 17; TEMP 37.2; O2SAT 99
[2023-11-19] MEDS: LACTATED RINGERS 1000ML 1,000 ML 100 ML IV (17:23)
--- NOTE | 2023-11-19 18:00 | EXP.PN ---
Subjective *Date: 11/19/23 *Time: 18:00 Interval history: Patient tolerating p.o. intake better today, advance to mechanical soft diet with good toleration. Back pain also improved today. However, patient does not have a ride back home today, anticipate discharge tomorrow Exam Data for Last 24 hours Vital signs and Labs for Last 24 Hours: Temp Pulse Resp BP Pulse Ox O2 Del Method 98.9 F 82 17 120/69 99 Room Air 11/19/23 16:00 11/19/23 16:00 11/19/23 16:00 11/19/23 16:00 11/19/23 16:00 11/19/23 17:00 Laboratory Results - last 24 hr 11/18/23 05:38: POC Glucose 114 H 11/18/23 11:35: POC Glucose 124 H 11/18/23 20:02: POC Glucose 136 H 11/19/23 05:33: POC Glucose 100 11/19/23 12:10: POC Glucose 92 11/19/23 13:35: WBC 8.1, RBC 4.07 L, Hgb 11.8 L, Hct 38.1, MCV 93.6, MCH 28.9, MCHC 30.9 L, RDW 13.8, Plt Count 117 L, MPV 8.2, Neut % (Auto) 79.7, Lymph % (Auto) 14.0, [place] % (Auto) 4.1, Eos % (Auto) 1.6, Baso % (Auto) 0.5, Neut # (Auto) 6.5, Lymph # (Auto) 1.1, [place] # (Auto) 0.3, Eos # (Auto) 0.1, Baso # (Auto) 0.0, Sodium 130 L, Potassium 3.8 D, Chloride 101, Carbon Dioxide 22, Anion Gap 10.8, BUN 22 H D, Creatinine 0.70, Estimated Creat Clear 56, Estimated GFR 82, Est GFR ( Amer) 99, Glucose 160 H, Calcium 8.0 L I & O for Last 24 hours: Intake & Output 11/16/23 11/17/23 11/18/23 11/19/23 23:59 23:59 23:59 23:59 Intake Total 2964 / 2964 510 / 510 Output Total 0 / 0 100 / 100 901 / 901 Balance 0 / 120 2864 / 2864 -391 / -391 Weight 67.387 kg 66.8 kg 70.335 kg Microbiology Reports for the Last 24 Hours: Microbiology 11/17/23 14:16 Blood Blood Culture - Preliminary NO GROWTH AFTER 48 HOURS 11/17/23 14:10 Blood Blood Culture - Preliminary NO GROWTH AFTER 48 HOURS 11/17/23 10:46 Urine,Catheterized Urine Culture - Final Constitutional Constitutional: no acute distress *Routine HEENT Exam Head: Present normocephalic Eye: Present EOMI and PERRL ENT: Present mucous membranes moist *Routine Neck Exam Neck: Present supple; Absent lymphadenopathy *Routine Respiratory Exam Respiratory: Present CTA bilaterally *Routine Cardiovascular Exam Cardiovascular: Present RRR *Routine Abdominal Exam Abdominal: Present soft and normoactive bowel sounds; Absent tenderness *Routine Extremities Exam Extremities: Absent cyanosis, clubbing or edema Comments: Right below-knee amputation. *Routine Skin Exam Skin: Present warm; Absent rash *Routine Neurological Exam Neurological: Present alert and oriented X3 Assessment and Plan *Assessment and plan (1) UTI (urinary tract infection): Status: Acute Category: Medical Code(s): N39.0 - Urinary tract infection, site not specified (2) Nausea & vomiting: Status: Acute Category: Medical Code(s): R11.2 - Nausea with vomiting, unspecified Plan Xuan Fields is a 73-year-old female with a medical history significant for esophageal carcinoma s/p chemotherapy in remission, esophageal stricture s/p dilation, type 2 diabetes presents from home for intractable nausea/vomiting and weakness for the past several days. She states she had some roast beef last and began having nausea/vomiting since Tuesday. She had diarrhea until Tuesday. Denies chest pain, shortness of breath. Workup in the ED significant for WBC 15.6, AGAP 17, creatinine 1.2 (baseline 0.9). UA positive for WBC, bacteria, trace leukocyte esterase. CT abdomen/pelvis showed abnormal mucosal thickening of the distal esophagus likely related to reflux. Case was discussed with the ED attending and decision was made to admit patient for intractable nausea/vomiting, UTI. #Intractable nausea #Esophagitis #History of esophageal carcinoma s/p chemotherapy #History of esophageal stricture s/p dilatation ? Follows with [facility] ? CT abdomen/pelvis does suggest distal esophagitis, unclear how chronic this is. ? Patient exhibits mild choking symptoms with pills today, but they were the relatively large pills and she later tolerated smaller pills well. ? Today, tolerating p.o. intake much better. Advance to mechanical soft diet with good toleration. No nausea/vomiting. ? Given complex history, will recommend follow-up with GI after discharge. ? CAMPUS COORDINATOR consulted, pending recommendations. ? Protonix 40 mg twice daily. ? Compazine as needed for nausea. Patient states Phenergan alters her with confusion. ? Bed elevation. ? Plan was to discharge patient today, however patient does not have a ride home. Plan to discharge patient in the morning. #UTI #Urinary retention ? Unclear if these are related, patient has mild diffuse abdominal pain more prominent in the suprapubic region. ? Initial WBC 15.6?improved to 9.7. Afebrile, no tachycardia. ? CT abdomen/pelvis does reveal mucosal thickening throughout the distal esophagus, possibly from reflux. ? Patient had 800 mL bladder retention on bladder scan this morning. Gloria placed with appropriate output. Gloria currently clamped, plan to discontinue Gloria once patient has urge to urinate. ? Ceftriaxone day 2/5 for UTI. ? Urine culture shows multiple species, possible contamination. However, given symptoms as above we will continue ceftriaxone for full 5-day course #Diabetes ? LDSSI, ACHS glucose checks Full code Lovenox 40mg
--- NOTE | 2023-11-19 18:38 | PC.NURSE ---
pt has not c/o pain this shift. [place] has been clamped per MD for bladder training. pt does not report that she feels the urge to void at this time. diet was advanced this shift to mechanical chopped, patient tolerating well.
[2023-11-19 20:00] VITALS: BP 132/60; PULSE 79; PULSE 90; RESP 16; TEMP 37.1; O2SAT 95
[2023-11-19 21:42] LABS: POC Glucose,Bedside 87 (70-110)
[2023-11-19] MEDS: TRAZODONE 50MG TABLET 25 MG PO (22:06)
[2023-11-19 22:17] LABS: POC Glucose,Bedside 136 (70-110)
[2023-11-20] VITALS: BP 123/64; PULSE 82; PULSE 90; RESP 16; TEMP 37.1; O2SAT 93
[2023-11-20 04:00] VITALS: BP 123/56; PULSE 81; PULSE 90; RESP 16; TEMP 37.2; O2SAT 94; BMI 26.9
--- NOTE | 2023-11-20 04:11 | P.DS_ITS ---
General Admission date:: 11/17/23 Discharge date: 11/20/23 HPI HPI HPI: Xuan Fields is a 73-year-old female with a medical history significant for esophageal carcinoma s/p chemotherapy in remission, esophageal stricture s/p dilation, type 2 diabetes presents from home for intractable nausea/vomiting and weakness for the past several days. She states she had some roast beef last and began having nausea/vomiting since Tuesday. She had diarrhea until Tuesday. Denies chest pain, shortness of breath. Workup in the ED significant for WBC 15.6, AGAP 17, creatinine 1.2 (baseline 0.9). UA positive for WBC, bacteria, trace leukocyte esterase. CT abdomen/pelvis showed abnormal mucosal thickening of the distal esophagus likely related to reflux. Case was discussed with the ED attending and decision was made to admit patient for intractable nausea/vomiting, UTI Hospital Course Hospital Course Hospital Course: Xuan Fields is a 73-year-old female with a medical history significant for esophageal carcinoma s/p chemotherapy in remission, esophageal stricture s/p dilation, type 2 diabetes presents from home for intractable nausea/vomiting and weakness for the past several days. She states she had some roast beef last and began having nausea/vomiting since Tuesday. She had diarrhea until Tuesday. Denies chest pain, shortness of breath. Workup in the ED significant for WBC 15.6, AGAP 17, creatinine 1.2 (baseline 0.9). UA positive for WBC, bacteria, trace leukocyte esterase. CT abdomen/pelvis showed abnormal mucosal thickening of the distal esophagus likely related to reflux. Case was discussed with the ED attending and decision was made to admit patient for intractable na usea/vomiting, UTI. Patient did well during admission. GERD was treated and UTI was managed. Showed advancement in diet. Tolerating p.o. intake. Transition to antibiotics orally to complete empiric course. Recommend close follow-up with GI as an outpatient for further evaluation and possible repeat EGD. Stable to discharge home. Problems addressed as follows: #Intractable nausea #Esophagitis #History of esophageal carcinoma s/p chemotherapy #History of esophageal stricture s/p dilatation ? Follows with [facility]. CT abdomen/pelvis does suggest distal esophagitis, unclear how chronic this is. Patient exhibits mild choking symptoms with pills initially on admission. Did better with smaller pills. Able to advance diet as her nausea and GERD symptoms improved. Recommend continuing pantoprazole 40 mg nightly. Nausea treated with Compazine. Symptoms resolved. Able to tolerate nutrition by day of discharge with improvement in her symptoms. Would benefit from evaluation by GI for possible repeat EGD. Has had to have her esophagus stretched on a regular basis in the past. Has been several months per her report. Discharged home with family. Information given at discharge to schedule appointment for GI follow-up. #UTI #Urinary retention ? Unclear if these are related, patient has mild diffuse abdominal pain more p rominent in the suprapubic region. Initial WBC 15.6?improved to 9.7. Afebrile, no tachycardia. CT abdomen/pelvis does reveal mucosal thickening throughout the distal esophagus, possibly from reflux. Had some symptoms of bladder retention. Gloria was placed temporarily. Bladder was decompressed. Showed improvement. Able to remove Gloria and void independently. Initiated on ceftriaxone for po ssible UTI. Completed 5 days of antibiotics total. Will complete course with oral cefdinir at discharge. Urine culture still pending at discharge. So far shows multiple species, concern for possible contamination. Patient relatively asymptomatic at this time. -May benefit from outpatient evaluation by urology if continues to show signs or concerns for urinary retention. Constipation: States she does not have regular bowel movements except once or twice a week. No significant abdominal pain. Continue bowel regimen at discharge with docusate/senna daily #Diabetes: Treated with sliding scale insulin during admission. Resume home regimen at discharge including metformin 500 mg twice daily Total time spent on discharge 32 minutes in counseling, documentation, chart review, and direct care with patient. Exam Data for Last 24 hours Vital signs and Labs for Last 24 Hours: Temp Pulse Resp BP Pulse Ox O2 Del Method 98.8 F 82 16 123/64 93 L Room Air 11/20/23 00:00 11/20/23 00:00 11/20/23 00:00 11/20/23 00:00 11/20/23 00:00 11/20/23 01:00 Laboratory Results - last 24 hr 11/19/23 05:33: POC Glucose 100 11/19/23 12:10: POC Glucose 92 11/19/23 13:35: WBC 8.1, RBC 4.07 L, Hgb 11.8 L, Hct 38.1, MCV 93.6, MCH 28.9, MCHC 30.9 L, RDW 13.8, Plt Count 117 L, MPV 8.2, Neut % (Auto) 79.7, Lymph % (Auto) 14.0, Carson % (Auto) 4.1, Eos % (Auto) 1.6, Baso % (Auto) 0.5, Neut # (Auto) 6.5, Lymph # (Auto) 1.1, Carson # (Auto) 0.3, Eos # (Auto) 0.1, Baso # ( Auto) 0.0, Sodium 130 L, Potassium 3.8 D, Chloride 101, Carbon Dioxide 22, Anion Gap 10.8, BUN 22 H D, Creatinine 0.70, Estimated Creat Clear 56, Estimated GFR 82, Est GFR ( Amer) 99, Glucose 160 H, Calcium 8.0 L 11/19/23 17:20: POC Glucose 87 11/19/23 22:04: POC Glucose 136 H I & O for Last 24 hours: Intake & Output 11/17/23 11/18/23 11/19/23 11/20/23 23:59 23:59 23:59 23:59 Intake Total 2964 / 2964 510 / 1250 740 / 740 Output Total 0 / 0 100 / 100 901 / 2351 1450 / 1450 Balance 0 / 120 2864 / 2864 -391 / -1101 -710 / -710 Weight 67.387 kg 66.8 kg 70.335 kg Microbiology Reports for the Last 24 Hours: Microbiology 11/17/23 14:16 Blood Blood Culture - Preliminary NO GROWTH AFTER 48 HOURS 11/17/23 14:10 Blood Blood Culture - Preliminary NO GROWTH AFTER 48 HOURS 11/17/23 10:46 Urine,Catheterized Urine Culture - Final Constitutional Constitutional: no acute distress, average body habitus, chronically ill appearing and cooperative *Routine HEENT Exam Head: Present normocephalic Eye: Present EOMI and PERRL ENT: Present mucous membranes moist *Routine Neck Exam Neck: Present supple; Absent lymphadenopathy *Routine Respiratory Exam Respiratory: Present CTA bilaterally; Absent rhonchi, wheezes or crackles *Routine Cardiovascular Exam Cardiovascular: Present RRR *Routine Abdominal Exam Abdominal: Present soft and normoactive bowel sounds; Absent tenderness *Routine Rectal Exam Patient deferred: visual exam *Routine Exam Patient deferred: external exam *Routine Extremities Exam Extremities: Absent cyanosis, clubbing or edema *Routine Skin Exam Skin: Present warm; Absent rash *Routine Neurological Exam Neurological: Present alert and oriented X3; Absent altered mental status Results Data Completed and Pending Labs on day of discharge: Labs from last 24 hours 11/19/23 11/19/23 11/19/23 22:04 17:20 13:35 WBC 8.1 RBC 4.07 L Hgb 11.8 L Hct 38.1 MCV 93.6 MCH 28.9 MCHC 30.9 L RDW 13.8 Plt Count 117 L MPV 8.2 Neut % (Auto) 79.7 Lymph % (Auto) 14.0 Carson % (Auto) 4.1 Eos % (Auto) 1.6 Baso % (Auto) 0.5 Neut # (Auto) 6.5 Lymph # (Auto) 1.1 Carson # (Auto) 0.3 Eos # (Auto) 0.1 Baso # (Auto) 0.0 Sodium 130 L Potassium 3.8 D Chloride 101 Carbon Dioxide 22 Anion Gap 10.8 BUN 22 H D Creatinine 0.70 Estimated Creat Clear 56 Estimated GFR 82 Est GFR ( Amer) 99 Glucose 160 H POC Glucose 136 H 87 Calcium 8.0 L 11/19/23 11/19/23 12:10 05:33 WBC RBC Hgb Hct MCV MCH MCHC RDW Plt Count MPV Neut % (Auto) Lymph % (Auto) Carson % (Auto) Eos % (Auto) Baso % (Auto) Neut # (Auto) Lymph # (Auto) Carson # (Auto) Eos # (Auto) Baso # (Auto) Sodium Potassium Chloride Carbon Dioxide Anion Gap BUN Creatinine Estimated Creat Clear Estimated GFR Est GFR ( Amer) Glucose POC Glucose 92 100 Calcium Preliminary micro results at discharge 11/17/23 14:16 Blood Culture - Preliminary Blood NO GROWTH AFTER 48 HOURS 11/17/23 14:10 Blood Culture - Preliminary Blood NO GROWTH AFTER 48 HOURS DS: Diagnosis Discharge Diagnosis (1) UTI (urinary tract infection): Status: Acute Code(s): N39.0 - Urinary tract infection, site not specified (2) Nausea & vomiting: Status: Resolved Code(s): R11.2 - Nausea with vomiting, unspecified (3) KARI (acute kidney injury): Status: Resolved Code(s): N17.9 - Acute kidney failure, unspecified (4) Esophagitis: Status: Acute Code(s): K20.90 - Esophagitis, unspecified without bleeding (5) GERD (gastroesophageal reflux disease): Status: Acute Code(s): K21.9 - Gastro-esophageal reflux disease without esophagitis Qualifiers: Esophagitis presence: esophagitis presence not specified Qualified Code(s): K21.9 - Gastro-esophageal reflux disease without esophagitis (6) Diabetes: Status: Acute Code(s): E11.9 - Type 2 diabetes mellitus without complications (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 Meds Home Medications and Allergies Home Medications ?Medication ?Instructions ?Recorded ?Confirmed ?Type ergocalciferol (vitamin D2) 1,250 1,250 mcg PO WEEKLY 11/14/23 11/17/23 History mcg (50,000 unit) capsule (Vitamin D2) esomeprazole magnesium 40 mg 40 mg PO BID 11/14/23 11/17/23 History capsule,delayed release lidocaine 4 % topical patch 1 patch topical DAILY 11/14/23 11/17/23 History meloxicam 7.5 mg tablet 7.5 mg PO DAILY 11/14/23 11/17/23 History metformin 500 mg tablet,extended 500 mg PO DAILY 11/14/23 11/17/23 History release 24 hr metoclopramide HCl 10 mg tablet 10 mg PO ACHS 11/14/23 11/17/23 History nitrofurantoin 100 mg PO BID 5 days #10 caps 11/14/23 11/17/23 Rx monohydrate/macrocrystals 100 mg capsule (Macrobid) tizanidine 2 mg tablet 2 mg PO Q6HP PRN Muscle Spasm 11/14/23 11/17/23 History ondansetron 4 mg disintegrating 4 mg PO Q8HP PRN Nausea 11/17/23 11/17/23 History tablet cefdinir 300 mg capsule 300 mg PO BID 2 days #4 caps 11/20/23 Rx pantoprazole 40 mg tablet,delayed 40 mg PO HS 30 days #30 tabs 11/20/23 Rx release sennosides 8.6 mg-docusate sodium 1 tab PO DAILY PRN Constipation 30 11/20/23 Rx 50 mg tablet (Stimulant Laxative days #30 tabs Plus) New Prescriptions to Start Prescriptions: cefdinir [facility] Alfred[facility] pantoprazole [facility] sennosides-docusate sodium [Stimulant Laxative Plus] [facility] Alfredo Allergies Allergy/AdvReac Type Severity Reaction Status Date / Time milk Allergy Mild Vomiting Verified 11/17/23 09:37 promethazine [From Phenergan] Allergy Mild whole body Verified 11/17/23 09:37 aches egg AdvReac Severe Vomiting Verified 11/17/23 09:37 Discharge Plan Disposition Patient Disposition: Home, Self-Care Condition: Fair Follow up Plan Follow up with: Michael Castaneda II, MD [Staff Physician] - Enter time for follow up Tori Mortensen APRN [Primary Care Provider] - Enter time for follow up Prescriptions/Medication Reconciliation: New sennosides-docusate sodium [Stimulant Laxative Plus] 8.6-50 mg Tablet 1 tab PO DAILY PRN (Reason: Constipation) 30 Days Qty: 30 0RF pantoprazole 40 mg Tablet,Delayed Release (Dr/Ec) 40 mg PO HS 30 Days Qty: 30 0RF cefdinir 300 mg capsule 300 mg PO BID 2 Days Qty: 4 0RF Continued ondansetron 4 mg tablet,disintegrating 4 mg PO Q8HP PRN (Reason: Nausea) lidocaine 4 % adhesive patch,medicated 1 patch TOPICAL DAILY tizanidine 2 mg tablet 2 mg PO Q6HP PRN (Reason: Muscle Spasm) meloxicam 7.5 mg tablet 7.5 mg PO DAILY esomeprazole magnesium 40 mg capsule,delayed release(DR/EC) 40 mg PO BID ergocalciferol (vitamin D2) [Vitamin D2] 1,250 mcg (50,000 unit) capsule 1,250 mcg PO WEEKLY metformin 500 mg tablet extended release 24 hr 500 mg PO DAILY metoclopramide HCl 10 mg tablet 10 mg PO ACHS nitrofurantoin monohyd/m-cryst [Macrobid] 100 mg Capsule 100 mg PO BID 5 Days Qty: 10 0RF Rx Instructions: must administer with a meal/food Problem Reconciliation Problems Reviewed?: Yes Patient Discharge Instructions ACTIVITY: Continue current activity DIET: continue same diet Patient Instructions: DI for Urinary Tract Infection (UTI), Nausea and Vomiting-Adult Print Language: Taiwanese Providers Primary Care Provider: Mortensen,Tori Admit Provider: Simon Matthews Attending Provider: Simon Matthews
[2023-11-20] MEDS: METOCLOPRAMIDE 10MG TABLET 10 MG PO (05:59)
[2023-11-20] MEDS: SUCRALFATE 1GM/10ML SUSP UDC 1 GM PO (05:59)
[2023-11-20 06:45] LABS: POC Glucose,Bedside 108 (70-110)
[2023-11-20 08:00] VITALS: BP 126/45; PULSE 90; PULSE 98; RESP 18; TEMP 36.9; O2SAT 96
[2023-11-20] MEDS: SENNOSIDES 8.6MG/DOCUSATE 50MG TABLET 1 TAB PO (08:41)
[2023-11-20] MEDS: PANTOPRAZOLE 40MG TABLET 40 MG PO (08:41)
--- NOTE | 2023-11-22 14:47 | CARE MANAGER ---
Contacted patient related to hospital discharge. She states she is doing well but is unable to take the stool softener prescribed as it is hurting her stomach and Miralax does not help her. I contacted Dr. Alfredo and he states she can try mag citrate. Relayed information to patient. She is aware of follow up appointment with Tori next week and is going to follow up with Dr. Castaneda when she gets appointment scheduled. Denies any questions or concerns at this time. RENE Castanon
== END 2023-11-20 12:37 | disposition home or self-care (01) ==
LOC: ER 13:48 → 2ND 14:00
PROVIDERS: Admitting Provider Student in an Organized Health Care Education/Training Program; Emergency Provider Emergency Medicine; PCP Nurse Practitioner Family; Visit Provider Student in an Organized Health Care Education/Training Program
DX: N39.0 Urinary tract infection, site not specified (principal); R11.2 Nausea with vomiting, unspecified; N17.9 Acute kidney failure, unspecified; E11.9 Type 2 diabetes mellitus without complications; F44.4 Conversion disorder with motor symptom or deficit; Z79.84 Long term (current) use of oral hypoglycemic drugs; Z79.899 Other long term (current) drug therapy; C15.9 Malignant neoplasm of esophagus, unspecified; K22.2 Esophageal obstruction; K21.00 Gastro-esophageal reflux disease with esophagitis, without bleeding
CPT/HCPCS: 36415; 74177; 80048; 80053; 81001; 82962; 83605; 83690; 83735; 84100; 85007; 85025; 85027; 85610; 86803; 87040; 87077; 87086; 87389; 87636; 93005; 99285; G0378; J0131; J0696; J1650; J1885; J2405; J2765; J7120; Q9967

== ENCOUNTER 2023-12-15 14:33 | Outpatient (CLI) | payer MEDICARE, OTHER, SELFPAY ==
--- NOTE | 2023-12-15 14:37 | XR_ITS ---
PROCEDURE INFORMATION: Exam: XR Left Shoulder Exam date and time: 12/15/2023 2:42 PM Age: 73 years old Clinical indication: Pain; Shoulder; Left; Additional info: Left shoulder pain TECHNIQUE: Imaging protocol: Radiologic exam of the left shoulder. Views: 2 or more views. COMPARISON: No relevant prior studies available. FINDINGS: Bones/joints: No acute fracture or dislocation. No erosions or periosteal reaction. Soft tissues: Normal. IMPRESSION: Normal shoulder x-rays.
== END 2023-12-15 23:59 | disposition home or self-care (01) ==
LOC: RAD 14:34
PROVIDERS: PCP Nurse Practitioner Family; Visit Provider Physician Assistant
DX: M25.812 Other specified joint disorders, left shoulder (principal)
CPT/HCPCS: 73030

== ENCOUNTER 2024-01-11 14:00 | Outpatient (RCR) | payer MEDICARE, OTHER, SELFPAY | END 2024-01-11 23:59 | disposition home or self-care (01) | LOC: OT 14:00 | PROVIDERS: PCP Nurse Practitioner Family; Visit Provider Physician Assistant | DX: M62.838 Other muscle spasm (principal) | CPT/HCPCS: 97014; 97035; 97140; 97165; 97530; G0283 ==

== ENCOUNTER 2024-04-11 12:04 | Day surgery (SDC) | payer MEDICARE, OTHER, SELFPAY ==
[2024-04-10 10:07] VITALS: BMI 25.0
[2024-04-11 13:18] VITALS: BP 137/75; PULSE 85; RESP 18; TEMP 36.6; O2SAT 96
[2024-04-11 13:41] LABS: POC Glucose,Bedside 89 (70-110)
--- NOTE | 2024-04-11 14:07 | EXP.HP ---
History of Present Illness *Admission Date: 04/11/24 *Reason for visit:: History of esophageal cancer in 2007/esophageal stricture/dysphagia *History of present illness: Mrs. Fields is a 73-year-old female who is here for dysphagia. She has a known esophageal stricture and had esophageal cancer in 2006 with chemoradiation. She has had multiple esophageal dilations. The examination is deemed medically necessary for EGD with dilation. The patient has been seen, interviewed and examined prior to the procedure by both myself and the anesthesia provider. [facility] Disclaimer: The information contained in this section may have been updated after the patient was seen, as this information can be updated by other users. Medical History UTI (urinary tract infection) Abdominal pain Encounter for diagnostic endoscopy History of radiation therapy Postmenopausal bleeding Wrist fracture, right Diabetes Migraine History of throat cancer Surgical History History of surgery Hx laparoscopic cholecystectomy Hx of esophagogastroduodenoscopy Hx of right BKA History of hand surgery web fingers seperated Family History Other Family history of cancer Family history of diabetes mellitus type II Family history of hypothyroidism Family history of stroke Social History (Updated 04/11/24 @ 13:26 by Aminta Gillette RN) Smoking Status: Never smoker second hand exposure: No alcohol intake: never substance use type: denies use current occupational status: retired Travel in the last 8 weeks: None adopted: No caregiver/support person: No foster care: No household members: none housing: house lives independently: Yes marital status: single education level: high school service: No skilled nursing: No current occupation: Retired current occupational exposures/hazards: No caffeine: No special rey needs: No agree to transfusion: No do you feel safe at home: Yes victim of physical abuse: No victim of emotional abuse: No victim of sexual abuse: No would you like helpful sources: No Have you lived/traveled outside [place] in past 30 days?: No Contact w/someone who lives/traveled outside US past 30 days?: No Exposure to someone with infectious disease in past 14 days?: No Do you have a fever (greater than 100.4 F or 38 C)?: No Have you tested positive for COVID-19: No Exposed to someone with COVID-19 in past 14 days?: No Do you have a sore throat?: No Do you have a cough?: No Do you have any weakness?: No Are you experiencing any nausea/vomitting?: No Do you have any diarrhea?: No Are you experiencing any unusual bleeding?: No Do you have any muscle aches/pain?: No Do you have any abdominal pain?: No Are you experiencing loss of taste or smell?: No Other Medical History Have you received the Flu Vaccine for this season: No Have you received the Pneumonia Vaccine: Yes Review of Systems Review of Systems Review of systems (narrative): Negative *Cardiovascular Comments: Negative *Gastrointestinal Comments: Negative *Genitourinary Comments: Negative *Musculoskeletal Comments: Negative *Neurologic Comments: Negative Meds Home Medications and Allergies Home Medications ?Medication ?Instructions ?Recorded ?Confirmed ?Type esomeprazole magnesium 40 mg 40 mg PO BID 11/14/23 04/11/24 History capsule,delayed release lidocaine 4 % topical patch 1 patch topical DAILY 11/14/23 04/11/24 History metoclopramide HCl 10 mg tablet 10 mg PO ACHS 11/14/23 04/11/24 History ondansetron 4 mg disintegrating 4 mg PO Q8HP PRN Nausea 11/17/23 04/11/24 History tablet tizanidine 2 mg tablet 2 mg PO Q6HP PRN Muscle Spasm #30 12/01/23 04/11/24 Rx tabs metformin 500 mg tablet,extended See Rx Instructions .Route 12/26/23 04/11/24 Rx release 24 hr .COMPLEX #90 tabs ergocalciferol (vitamin D2) 1,250 See Rx Instructions .Route 01/09/24 04/11/24 Rx mcg (50,000 unit) capsule (Vitamin .COMPLEX #12 caps D2) lactulose 10 gram/15 mL (15 mL) 20 g (30 mL) PO BID PRN 03/01/24 04/11/24 Rx oral solution constipation #750 mL meloxicam 7.5 mg tablet 7.5 mg PO DAILY #90 tabs 03/19/24 04/11/24 Rx New Prescriptions to Start Prescriptions: Allergies Allergy/AdvReac Type Severity Reaction Status Date / Time milk Allergy Mild Vomiting Verified 04/11/24 13:16 promethazine (From Phenergan) Allergy Mild whole body Verified 04/11/24 13:16 aches egg AdvReac Severe Vomiting Verified 04/11/24 13:16 Exam Data for Last 24 hours Vital signs and Labs for Last 24 Hours: Temp Pulse Resp BP Pulse Ox O2 Del Method 97.8 F 85 18 137/75 96 Room Air 04/11/24 13:18 04/11/24 13:18 04/11/24 13:18 04/11/24 13:18 04/11/24 13:18 04/11/24 13:18 Laboratory Results - last 24 hr 04/11/24 13:34: POC Glucose 89 I & O for Last 24 hours: Intake & Output 04/08/24 04/09/24 04/10/24 04/11/24 23:59 23:59 23:59 23:59 Weight 150 lb *Routine HEENT Exam Head: Present normocephalic Eye: Present EOMI and PERRL ENT: Present mucous membranes moist *Routine Neck Exam Neck: Present supple *Routine Respiratory Exam Respiratory: Present CTA bilaterally *Routine Cardiovascular Exam Cardiovascular: Present RRR *Routine Abdominal Exam Abdominal: Present soft and normoactive bowel sounds; Absent tenderness *Routine Rectal Exam Rectal:: deferred *Routine Genitalia Exam Genitalia:: deferred *Routine Extremities Exam Extremities: Absent cyanosis, clubbing or edema *Routine Skin Exam Skin: Present warm; Absent rash *Routine Neurological Exam Neurological: Present alert and oriented X3 Assessment and Plan *Assessment and plan (1) History of esophageal cancer: Status: Chronic Category: Medical Code(s): Z85.01 - Personal history of malignant neoplasm of esophagus (2) Dysphagia: Status: Acute Qualifiers: Dysphagia type: esophageal phase Qualified Code(s): R13.19 - Other dysphagia Category: Medical Code(s): R13.10 - Dysphagia, unspecified (3) History of esophageal stricture: Status: Acute Category: Medical Code(s): Z87.19 - Personal history of other diseases of the digestive system Plan A/P: 1. Dysphagia with a history of esophageal stricture and a history of esophageal cancer is the preprocedural diagnosis. The patient will be anesthetized/sedated using MAC sedation. The patient has been seen and examined. Cardiac and lung assessment prior to the examination is stable. Proceed with planned diagnostic/therapeutic upper endoscopy
[2024-04-11 14:13] VITALS: O2SAT 97
--- NOTE | 2024-04-11 14:17 | P.PCN_ITS ---
[facility] Procedure Note Date: 04/11/24 Time: 14:35 Procedure Note:: Upper Endoscopy Procedure Report: Esophagogastroduodenoscopy with cold biopsies and TTS balloon dilation and submucosal injection of Kenalog Endoscopost: Michael Castaneda II, MD Referring Physician: WILBERT Amaya Date of Procedure: April 11, 2024 Equipment: Olympus GIF 190 standard upper endoscope Sedation: MAC sedation Indications: Mrs. Fields is a 73-year-old female who was diagnosed with esophageal cancer (adenocarcinoma) in 2006. She received chemoradiation and has had sustained long-term remission. However, she has developed a distal esophageal stricture requiring repeated dilations. Her last EGD in August 2023 showed the lower esophageal stricture and this was dilated up to 16.5 mm. She reports no heartburn or reflux. She has had recurrent dysphagia once again. Dr. Jam Palmer was dilating the esophagus every 6 months. Procedure: Prior to the procedure, a history and physical exam was performed, and patient's medications and allergies were reviewed. The risks, benefits and alternatives of the sedation and procedure were discussed with the patient. All questions were answered and informed consent was obtained. The patient was brought to the procedure room. Patient identification and proposed procedure were verified by the physician and the nurse. The patient was placed in a left lateral decubitus position and the scope was passed under direct vision. Throughout the procedur e, the patient's blood pressure, pulse, and oxygen saturations were monitored continuously. The upper GI endoscopy was accomplished without difficulty. The patient tolerated the procedure well. Findings: The scope was passed directly into the upper esophagus and advanced to the third portion of the duodenum. The post bulbar duodenum and duodenal bulb were normal with normal mucosa and conniventes. The scope was withdrawn through a normal duodenal bulb and pylorus into the stomach. There was some bile reflux with minimal reactive gastropathy of the antrum. The body and fundus were normal. Upon retroflexion there was a 3 cm hiatal hernia. The scope was then withdrawn into the esophagus. There was a distal esophageal fibrotic and ulcerated stricture. Originally the 9 mm endoscope could not pass and the original diameter was approximately 5 mm in diameter. This was gently dilated with a wire-guided balloon up to 18 mm with a TTS hydrostatic balloon. There was some proximal to the stricture mild stenosis and this was all dilated up to 18 mm. This was felt to be related to radiation injury to the esophagus. Biopsies were taken from the esophageal strictured area. Lastly, 40 mg of Kenalog was injected into the stricture in 4 separate aliquots to prevent recurrent esophageal fibrosis. The mid and proximal esophagus were normal. Impression: 1. 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 3 cm medium sized hiatal hernia Plan: I will follow-up the biopsies. The patient should have clinical improvement with this dilation. We will discuss interval of repeat dilations today.
[2024-04-11] MEDS: TRIAMCINOLONE ACET 40MG/ML VIAL 40 MG IM (14:31)
[2024-04-11 14:35] VITALS: BP 110/63; PULSE 88; RESP 16; TEMP 36.1; O2SAT 94
[2024-04-11 14:45] VITALS: BP 143/76; PULSE 77; RESP 16; O2SAT 97
[2024-04-11 14:55] VITALS: BP 120/75; PULSE 76; RESP 16; O2SAT 98
[2024-04-11 15:05] VITALS: BP 133/75; PULSE 77; RESP 16; O2SAT 98
== END 2024-04-11 15:10 | disposition home or self-care (01) ==
PROVIDERS: PCP Nurse Practitioner Family; Visit Provider Internal Medicine Gastroenterology
PROC: 0DJ08ZZ Inspection of Upper Intestinal Tract, Via Natural or Artificial Opening Endoscopic (ICD-10-PCS; CPT 43236; principal; 2024-04-11 14:30)
DX: K31.9 Disease of stomach and duodenum, unspecified (principal); K44.9 Diaphragmatic hernia without obstruction or gangrene; K22.2 Esophageal obstruction; Z85.01 Personal history of malignant neoplasm of esophagus; R13.19 Other dysphagia; Z87.19 Personal history of other diseases of the digestive system; E11.9 Type 2 diabetes mellitus without complications; Z79.84 Long term (current) use of oral hypoglycemic drugs
CPT/HCPCS: 43236; 43239; 43249; 82962; C1726; J3301

== ENCOUNTER 2024-04-26 08:15 | Outpatient (CLI) | payer MEDICARE, OTHER, SELFPAY ==
--- NOTE | 2024-04-26 08:20 | XR_ITS ---
FINAL REPORT CLINICAL HISTORY: bilateral shoulder pain COMPARISON: 07/28/2023 FINDINGS: LEFT SHOULDER Three views of the left shoulder were obtained. There are minimal hypertrophic changes at the acromioclavicular joint. Soft tissues are unremarkable. IMPRESSION: Degenerative changes without acute bony abnormality. Reviewed, Interpreted and Dictated by Willie Mckeon MD Transcribed by Conchita Javier Authenticated and [facility]
--- NOTE | 2024-04-26 08:20 | XR_ITS ---
FINAL REPORT CLINICAL HISTORY: Left knee pain COMPARISON: 09/29/2023 FINDINGS: LEFT KNEE Three views demonstrate no acute fracture or dislocation. There is moderate narrowing of the medial compartment joint space. There are osteochondral lesions along the articular surface of the medial femoral condyle. Small osteophytes are noted at the medial joint margin and along the undersurface of the patella. No acute soft tissue abnormality is seen. 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 Reviewed, Interpreted and Dictated by Willie Mckeon MD Transcribed by Conchita Javier Authenticated and [facility]
--- NOTE | 2024-04-26 08:20 | XR_ITS ---
FINAL REPORT CLINICAL HISTORY: bilateral shoulder pain COMPARISON: 10/27/2022 FINDINGS: RIGHT SHOULDER Two views demonstrate no acute fracture or dislocation. There are minimal hypertrophic changes at the acromioclavicular joint. The soft tissues are unremarkable. IMPRESSION: Degenerative changes without acute bony abnormality. Reviewed, Interpreted and Dictated by Willie Mckeon MD Transcribed by Conchita Javier Authenticated and [facility]
== END 2024-04-26 23:59 | disposition home or self-care (01) ==
LOC: RAD 08:16
PROVIDERS: PCP Nurse Practitioner Family; Visit Provider Physician Assistant
DX: M25.562 Pain in left knee (principal); M25.511 Pain in right shoulder; M25.512 Pain in left shoulder
CPT/HCPCS: 73030; 73562

== ENCOUNTER 2024-05-31 14:59 | Outpatient (CLI) | payer MEDICARE, OTHER, SELFPAY ==
[2024-05-31 13:16] LABS: Basophils % 0.5 % (0.1-2.0); Eosinophils # 0.1 K/mm3 (0.0-0.4); Eosinophils % 0.7 % (0.1-12.0); Hematocrit 41.3 % (37.0-47.0); Hemoglobin 12.9 g/dL (12.2-16.2); Lymphocytes # 1.8 K/mm3 (0.7-4.5); Mean Corpuscular HGB Conc 31.2 g/dL (31.8-35.4); Mean Corpuscular Hemoglobin 27.7 pg (27.0-31.2); Mean Corpuscular Volume 88.8 fl (81-99); Mean Platelet Volume 10.6 fl (7.4-10.4); Monocytes # 0.5 K/mm3 (0.1-1.0); Neutrophils # 5.2 K/mm3 (1.8-7.8); Nucleated Red Blood Cells # 0 10^3/uL; Nucleated Red Blood Cells % 0 %; Platelet Count 166 K/mm3 (142-424); Red Blood Count 4.65 M/mm3 (4.20-5.40); Red Cell Distribution Width 15.1 % (11.5-17.5); White Blood Count 7.6 K/mm3 (4.8-10.8)
[2024-05-31 14:10] LABS: Alanine Aminotransferase 19 U/L (12-78); Albumin Level 4.2 g/dl (3.5-5.0); Albumin/Globulin Ratio 1.4 (1.1-1.8); Alkaline Phosphatase 93 U/L (38-126); Anion Gap 14.6 mEq/L (5-15); Aspartate Amino Transferase 27 U/L (14-36); Bilirubin,Total 0.6 mg/dl (0.2-1.3); Blood Urea Nitrogen 17 mg/dl (7-17); Calcium 9.3 mg/dl (8.4-10.2); Carbon Dioxide 29 mmol/L (22.0-30.0); Chloride 100 mmol/L (98-107); Cholesterol 235 mg/dl (140-200); Estimated Glomerular Filt Rate 98 ml/min (>60); GFR (African American) 119 ML/MIN (>60); Globulin 3.1 g/dL (1.3-3.2); Glucose 88 mg/dl (74-100); HDL Cholesterol 59 mg/dl (40-60); Magnesium 1.9 mg/dl (1.6-2.3); Phosphorous 3.1 mg/dl (2.5-4.5); Potassium 4.6 mmoL/L (3.5-5.1); Sodium 139 mmol/L (136-145); Total Protein,Serum 7.3 g/dl (6.3-8.2); Triglycerides 161 mg/dl (30-150); VLDL Cholesterol 32 mg/dL (0-40)
[2024-05-31 14:21] LABS: Direct LDL Cholesterol 143.26 mg/dL (100-129)
[2024-05-31 14:27] LABS: 25-OH Vitamin D, Total 57.1 ng/mL (30-100); Free T4 (Free Thyroxine) 1.36 ng/dl (0.78-2.19)
[2024-05-31 14:35] LABS: Iron 91 ug/dL (37-170)
[2024-05-31 14:41] LABS: Thyroid Stimulating Hormone 1.68 uIU/mL (0.465-4.68)
[2024-05-31 14:44] LABS: Total Iron Binding Capacity 302 ug/dL (265-497)
[2024-05-31 15:00] LABS: Vitamin B12 648 pg/mL (239-931)
[2024-05-31 15:07] LABS: Hemoglobin A1C 5.7 % (4.0-6.0)
[2024-05-31 15:13] LABS: Ferritin 39.8 ng/ml (11.1-264)
== END 2024-05-31 23:59 | disposition home or self-care (01) ==
LOC: LAB.DROPOF 14:59
PROVIDERS: PCP Nurse Practitioner Family; Visit Provider Nurse Practitioner Family
DX: E11.9 Type 2 diabetes mellitus without complications (principal); N28.9 Disorder of kidney and ureter, unspecified; K21.9 Gastro-esophageal reflux disease without esophagitis; I10 Essential (primary) hypertension; R53.83 Other fatigue; L65.9 Nonscarring hair loss, unspecified; R63.4 Abnormal weight loss; Z68.23 Body mass index [BMI] 23.0-23.9, adult; R41.3 Other amnesia; G47.33 Obstructive sleep apnea (adult) (pediatric); Z79.84 Long term (current) use of oral hypoglycemic drugs
CPT/HCPCS: 80053; 80061; 82306; 82607; 82728; 83036; 83540; 83550; 83735; 84100; 84439; 84443; 85025

== ENCOUNTER 2024-08-07 08:32 | Outpatient (CLI) | payer MEDICARE, OTHER, SELFPAY ==
--- NOTE | 2024-08-07 08:38 | XR_ITS ---
FINAL REPORT CLINICAL HISTORY: left knee pain FINDINGS: LEFT KNEE 5 views of the left knee were obtained. There is no acute fracture or dislocation. There are moderate degenerative changes of the medial compartment. Bones are osteopenic. Visualized joint spaces are normally aligned. Soft tissues are unremarkable. IMPRESSION: Moderate degenerative changes without acute bony abnormality. Reviewed, Interpreted and Dictated by Michael Pagan MD Transcribed by Iliana Da Silva Authenticated and [facility]
--- NOTE | 2024-08-07 08:38 | XR_ITS ---
FINAL REPORT CLINICAL HISTORY: left shoulder pain FINDINGS: LEFT SHOULDER 2 views of the left shoulder were obtained. There is no acute fracture or dislocation. There are mild degenerative changes of the acromioclavicular and glenohumeral joints. Osteopenia is noted. Visualized joint spaces are normally aligned. Soft tissues are unremarkable. IMPRESSION: No acute bony abnormality. Reviewed, Interpreted and Dictated by Michael Pagan MD Transcribed by Iliana Da Silva Authenticated and [facility]
--- NOTE | 2024-08-07 08:38 | XR_ITS ---
FINAL REPORT CLINICAL HISTORY: right shoulder pain FINDINGS: RIGHT SHOULDER 2 views demonstrate no acute fracture or dislocation. There are mild degenerative changes of the acromioclavicular and glenohumeral joints. Bones are osteopenic. The visualized joint spaces are normally aligned. The soft tissues are unremarkable. IMPRESSION: No acute process. Reviewed, Interpreted and Dictated by Michael Pagan MD Transcribed by Iliana Da Silva Authenticated and [facility]
== END 2024-08-07 23:59 | disposition home or self-care (01) ==
LOC: RAD 08:33
PROVIDERS: PCP Nurse Practitioner Family; Visit Provider Orthopaedic Surgery
DX: M17.12 Unilateral primary osteoarthritis, left knee (principal); M25.512 Pain in left shoulder; M25.511 Pain in right shoulder
CPT/HCPCS: 73030; 73562

== ENCOUNTER 2024-09-03 16:03 | Outpatient (CLI) | payer MEDICARE, OTHER, SELFPAY ==
[2024-09-03 12:16] LABS: Coronavirus 19, PCR Not Detected (NotDetected); Influenza A, PCR Not Detected (NotDetected); Influenza B, PCR Not Detected (NotDetected)
== END 2024-09-03 23:59 | disposition home or self-care (01) ==
LOC: LAB.DROPOF 16:03
PROVIDERS: PCP Nurse Practitioner Family; Visit Provider Nurse Practitioner Family
DX: U07.1 COVID-19 (principal)
CPT/HCPCS: 87631

== ENCOUNTER → 2024-09-14 07:36 | Outpatient (RCR) | payer MEDICARE, OTHER, SELFPAY ==
--- NOTE | 2024-09-14 08:14 | HMH.PTOPWND ---
Rehab Outpt Wound Evaluation Rehab OP Wound Evaluation Start: 09/14/24 07:50 Freq: Status: Active Protocol: Document 09/14/24 08:04 KIMMY (Rec: 09/14/24 08:14 PHOPERICO [id number]) E-signed By Aidan Payan, PT Subjective/History History History This is the initial PT eval for Xuan Fields, 74 yowf who presents with c/o open buttock wound and increased tenderness in the isabella-wound skin x several months. She reports pain is increased with laying supine, but she states, I can't lay in my side. Pt presents 3 hours early for her appointment due to, I can barely walk and I have to be able to find somewhere to park. She reports history of urinary incontinence, DM, R BKA, throat cancer with XRT. Subjective Subjective Pt reports no pain at rest in standing, but increased pain with laying supine 6/10. She also reports 2/4 TTP to B buttocks. MILD erythema noted, but this presents more as chronic redness than acute. Wound Eval Subjective History Subjective Pt currently has no open wounds. One small area of dry skin noted to L buttock close to her coccyx was noted, but this was easily removed with mechanical debridement via gauze and saline. No open skin areas noted. Pt reports she is using prescribed nystatin cream 3x/day per her PCP. Pt instructed to finish using nystatin as ordered then move to diaper rash ointment (A&D ointment ) for skin protection due to urinary incontinence. Wound Problems/Impairments Impairments Problems/ Palpation Tenderness,Wound Care Needs Impairmments Prognosis Rehab Potential Innapropriate for Skilled Therapy Comment No current open wounds that require debridement or advance wound care at this time. Pt reports understanding of instructions for continued appropriate skin care in the setting of urinary incontinence related MASD and Pressure due to sedentary lifestyle. Clinical Impression Consistent with Yes Diagnosis Outpatient Therapy Plan of Care Treatment Plan May Include Eval/Re-Eval Yes Frequency Times per week 0 Duration Number of Weeks 0 Addendums This patient is a No candidate for social or vocational rehab ? Patient/Guardian Yes verbally acknowledges understanding of treatment program and consents to further treatment? Patient/Guardian Yes verbally acknowledges understanding of diagnosis, prognosis and goals for treatment? Eval Complexity PT Charges 26192 - High Complexity PHYSICIAN CERTIFICATION: I certify the specified therapy services for Xuan W Dampier are required, authorized, and reviewed every 30 days.
== END ==
LOC: PT 07:36
PROVIDERS: Visit Provider Nurse Practitioner Family
DX: S31.809A Unspecified open wound of unspecified buttock, initial encounter (principal); G25.81 Restless legs syndrome; R63.4 Abnormal weight loss
CPT/HCPCS: 97163

== ENCOUNTER 2024-10-03 09:25 | Outpatient (CLI) | payer MEDICARE, OTHER, SELFPAY ==
--- NOTE | 2024-10-03 09:28 | XR_ITS ---
FINAL REPORT CLINICAL HISTORY: chronic right hip pain COMPARISON: None FINDINGS: RIGHT HIP Two views of the right hip with an AP view of the pelvis demonstrate no acute fracture or dislocation. There is advanced narrowing of the right hip joint space. Subchondral sclerosis is noted. There is osteophyte formation. Degenerative cyst formation is noted in the femoral head. There may be a few small intra-articular loose bodies measuring up to 11 mm. No soft tissue abnormality is seen. IMPRESSION: No acute bony abnormality. Advanced changes of osteoarthritis. Small intra-articular loose bodies. Reviewed, Interpreted and Dictated by Willie Mckeon MD Transcribed by Felecia Jules Authenticated and [facility]
== END 2024-10-03 23:59 | disposition home or self-care (01) ==
LOC: RAD 09:25
PROVIDERS: PCP Nurse Practitioner Family; Visit Provider Nurse Practitioner Family
DX: M16.11 Unilateral primary osteoarthritis, right hip (principal); M24.051 Loose body in right hip
CPT/HCPCS: 73502

== ENCOUNTER 2024-11-19 08:04 | Day surgery (SDC) | payer MEDICARE, OTHER, SELFPAY ==
[2024-11-13 12:45] VITALS: BMI 21.6
--- NOTE | 2024-11-15 17:39 | EXP.HP ---
History of Present Illness *Admission Date: 11/19/24 *History of present illness: Mrs. 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 The patient was diagnosed with esophageal adenocarcinoma in 2006 and has achieved long-term sustained remission. She has had multiple esophageal dilations manage her last EGD with dilation was in March 2024. At that time, the esophageal stricture diameter was 5 mm and dilated to 18 mm and Kenalog was injected into the stricture. She has had recurrent dysphagia. The examination is deemed medically necessary for therapeutic EGD. The patient has been seen, interviewed and examined prior to the procedure by both myself and the anesthesia provider. [facility] Disclaimer: The information contained in this section may have been updated after the patient was seen, as this information can be updated by other users. Medical History Impacted cerumen, left ear Viral illness Left otitis media Lesion of left ear UTI (urinary tract infection) Abdominal pain Encounter for diagnostic endoscopy History of radiation therapy Postmenopausal bleeding Wrist fracture, right Diabetes Migraine History of throat cancer Surgical History History of surgery Hx laparoscopic cholecystectomy Hx of esophagogastroduodenoscopy Hx of right BKA History of hand surgery Family History Other Family history of cancer Family history of diabetes mellitus type II Family history of hypothyroidism Family history of stroke Social History Smoking Status: Never smoker second hand exposure: No alcohol intake: never substance use type: denies use current occupational status: retired Travel in the last 8 weeks?: None adopted: No caregiver/support person: No foster care: No household members: none housing: house lives independently: Yes marital status: single education level: high school service: No [place] [facility]: No current occupation: Retired current occupational exposures/hazards: No caffeine: No special rey needs: No agree to transfusion: No do you feel safe at home: Yes victim of physical abuse: No victim of emotional abuse: No victim of sexual abuse: No would you like helpful sources: No Have you lived/traveled outside US in past 30 days?: No Contact w/someone who lives/traveled outside US past 30 days?: No Exposure to someone with infectious disease in past 14 days?: No Do you have a fever (greater than 100.4 F or 38 C)?: No Have you tested positive for COVID-19?: No Exposed to someone with COVID-19 in past 14 days?: No Do you have a sore throat?: No Do you have a cough?: No Do you have any weakness?: No Do you have any diarrhea?: No Are you experiencing any unusual bleeding?: No Do you have any muscle aches/pain?: No Do you have any abdominal pain?: No Are you experiencing loss of taste or smell?: No Other Medical History Have you received the Flu Vaccine for this season: No Have you received the Pneumonia Vaccine: Yes Review of Systems Review of Systems Review of systems (narrative): Negative *Cardiovascular Comments: Negative *Gastrointestinal Comments: Negative *Genitourinary Comments: Negative *Musculoskeletal Comments: Negative *Neurologic Comments: Negative Meds Home Medications and Allergies Home Medications ?Medication ?Instructions ?Recorded ?Confirmed ?Type lidocaine 4 % topical patch 1 patch topical DAILY 11/14/23 11/13/24 History ondansetron 4 mg disintegrating 4 mg PO Q8HP PRN Nausea 11/17/23 11/13/24 History tablet metoclopramide HCl 10 mg tablet 10 mg PO ACHS #120 tabs 05/08/24 11/13/24 Rx clobetasol 0.05 % topical cream 1 applic topical NEEDED PRN 05/31/24 11/13/24 History Skin Irritation docusate sodium 100 mg tablet 200 mg PO DAILY 05/31/24 11/13/24 History (Stool Softener) vqfajmnr-lccf-wqac 8 mg-folic 400 1 tab PO DAILY 05/31/24 11/13/24 History mcg-K 50 mcg-lutein 300 mcg tablet (Centrum Silver Women) vit C 250 mg-vit E 90 mg-zinc 40 1 tab PO BID 05/31/24 11/13/24 History mg-copper 1 [id number]-rxcrmc capsule (PreserVision AREDS-2) rosuvastatin 20 mg tablet 20 mg PO QHS #90 tabs 06/01/24 11/13/24 Rx mupirocin 2 % topical ointment 1 applic topical DAILY #22 grams 06/14/24 11/13/24 Rx ergocalciferol (vitamin D2) 1,250 1,250 mcg PO WEEKLY 08/15/24 11/13/24 History mcg (50,000 unit) capsule (Vitamin D2) metformin 500 mg tablet,extended 500 mg PO DAILY 08/15/24 11/13/24 History release 24 hr nystatin 100,000 unit/gram topical 1 applic topical TID #30 grams 08/15/24 11/13/24 Rx cream methylcellulose (laxative) 500 mg 500 mg PO DAILY 09/20/24 11/13/24 History tablet (Citrucel) diclofenac sodium 1 % topical gel 2 g topical QID OA #50 grams 10/03/24 11/13/24 Rx (Voltaren Arthritis Pain) esomeprazole magnesium 40 mg See Rx Instructions .Route 10/11/24 11/13/24 Rx capsule,delayed release .COMPLEX #180 caps New Prescriptions to Start Prescriptions: Allergies Allergy/AdvReac Type Severity Reaction Status Date / Time milk Allergy Mild Vomiting Verified 11/19/24 08:38 promethazine (From Phenergan) Allergy Mild whole body Verified 11/19/24 08:38 aches egg AdvReac Severe Vomiting Verified 11/19/24 08:38 Exam Data for Last 24 hours I & O for Last 24 hours: Intake & Output 11/12/24 11/13/24 11/14/24 11/15/24 23:59 23:59 23:59 23:59 Weight 130 lb *Routine HEENT Exam Head: Present normocephalic Eye: Present EOMI and PERRL ENT: Present mucous membranes moist *Routine Neck Exam Neck: Present supple *Routine Respiratory Exam Respiratory: Present CTA bilaterally *Routine Cardiovascular Exam Cardiovascular: Present RRR *Routine Abdominal Exam Abdominal: Present soft and normoactive bowel sounds; Absent tenderness *Routine Rectal Exam Rectal:: deferred *Routine Genitalia Exam Genitalia:: deferred *Routine Extremities Exam Extremities: Absent cyanosis, clubbing or edema *Routine Skin Exam Skin: Present warm; Absent rash *Routine Neurological Exam Neurological: Present alert and oriented X3 Assessment and Plan *Assessment and plan (1) Radiation esophagitis: Status: Acute Category: Medical Code(s): K20.80 - Other esophagitis without bleeding (2) Benign esophageal stricture: Status: Acute Category: Medical Code(s): K22.2 - Esophageal obstruction (3) Personal history of esophageal cancer: Status: Acute Category: Medical Code(s): Z85.01 - Personal history of malignant neoplasm of esophagus (4) Dysphagia: Status: Acute Category: Medical Code(s): R13.10 - Dysphagia, unspecified Plan A/P: 1. Recurrent dysphagia with history of benign esophageal stricture, radiation esophagitis and remote personal history of esophageal cancer with is the preprocedural diagnosis. The patient will be anesthetized/sedated using MAC sedation. The patient has been seen and examined. Cardiac and lung assessment prior to the examination is stable. Proceed with planned EGD.
--- NOTE | 2024-11-19 06:46 | P.PCN_ITS ---
[facility] Procedure Note Date: 11/19/24 Time: 10:03 Procedure Note:: Upper Endoscopy Procedure Report: Esophagogastroduodenoscopy with submucosal injection (Kenalog) and TTS balloon dilation Endoscopost: Michael Castaneda II, MD Referring Physician: WILBERT Amaya Date of Procedure: November 19, 2024 Equipment: Olympus GIF-1100 standard upper endoscope Sedation: MAC sedation Indications: Mrs. 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 The patient was diagnosed with esophageal adenocarcinoma in 2006 and has achieved long-term sustained remission. She has had multiple esophageal dilations manage her last EGD with dilation was in March 2024. At that time, the esophageal stricture diameter was 5 mm and dilated to 18 mm and Kenalog was injected into the stricture. The patient does report that she has had more sustained improvement of her swallowing after the last dilation and Kenalog injection. She just recently had recurrence of her dysphagia. The examination is deemed medically necessary for therapeutic EGD. Procedure: Prior to the procedure, a history and physical exam was performed, and patient's medications and allergies were reviewed. The risks, benefits and alternatives of the sedation and procedure were discussed with the patient. All questions were answered and informed consent was obtained. The patient was brought to the procedure room. Patient identification and proposed procedure were verified by the physician and the nurse. The patient was placed in a left lateral decubitus position and the scope was passed under direct vision. Throughout the procedure, the patient's blood pressure, pulse, and oxygen saturations were monitored continuously. The upper GI endoscopy was accomplished without difficulty. The patient tolerated the procedure well. Findings: The scope was passed directly into the upper esophagus and advanced to the third portion of the duodenum. The post bulbar duodenum and duodenal bulb were normal with normal mucosa and conniventes. The scope was withdrawn through a normal duodenal bulb and pylorus into the stomach. There was some bile reflux with mild linear reactive gastropathy of the antrum and body. Upon retroflexion there was a medium sized 3 cm hiatal hernia. The scope was then withdrawn into the esophagus. There was a distal esophageal fibrotic stricture that was origi chantal 5 mm diameter and initially shattered some with the endoscope. There were mild changes of radiation esophagitis. There was no evidence of reflux esophagitis or Medina's. Initially, Kenalog was injected into the stricture in 2 separate aliquots of 20 mg each (40 mg Kenalog total). This was injected submucosally. Next, the stricture was dilated up to 18 mm with a TTS hydrostatic balloon. The remainder of the esophageal mucosa was normal. Impression: 1. Distal esophageal stricture (originally 5 mm)?status post Kenalog submucosal injection (40 mg) and TTS dilation to 18 mm Plan: I will discuss the findings with the patient and family. We will plan interval dilation again in 6 months.
[2024-11-19 08:42] VITALS: BP 133/65; PULSE 91; RESP 18; TEMP 36.4; O2SAT 97
[2024-11-19] MEDS: LACTATED RINGERS 1000ML 1,000 ML 50 ML IV (08:42)
[2024-11-19 09:04] LABS: POC Glucose,Bedside 101 gm/dL (70-110)
--- NOTE | 2024-11-19 09:24 | P.PNANES_ITS ---
[facility] Disclaimer: The information contained in this section may have been updated after the patient was seen, as this information can be updated by other users. Medical History Impacted cerumen, left ear Viral illness Left otitis media Lesion of left ear UTI (urinary tract infection) Abdominal pain Encounter for diagnostic endoscopy History of radiation therapy Postmenopausal bleeding Wrist fracture, right Diabetes Migraine History of throat cancer Surgical History History of surgery Hx laparoscopic cholecystectomy Hx of esophagogastroduodenoscopy Hx of right BKA History of hand surgery Family History Other Family history of cancer Family history of diabetes mellitus type II Family history of hypothyroidism Family history of stroke Social History Smoking Status: Never smoker second hand exposure: No alcohol intake: never substance use type: denies use current occupational status: retired Travel in the last 8 weeks?: None adopted: No caregiver/support person: No foster care: No household members: none housing: house lives independently: Yes marital status: single education level: high school service: No care home: No current occupation: Retired current occupational exposures/hazards: No caffeine: No special rey needs: No agree to transfusion: No do you feel safe at home: Yes victim of physical abuse: No victim of emotional abuse: No victim of sexual abuse: No would you like helpful sources: No Have you lived/traveled outside US in past 30 days?: No Contact w/someone who lives/traveled outside US past 30 days?: No Exposure to someone with infectious disease in past 14 days?: No Do you have a fever (greater than 100.4 F or 38 C)?: No Have you tested positive for COVID-19?: No Exposed to someone with COVID-19 in past 14 days?: No Do you have a sore throat?: No Do you have a cough?: No Do you have any weakness?: No Do you have any diarrhea?: No Are you experiencing any unusual bleeding?: No Do you have any muscle aches/pain?: No Do you have any abdominal pain?: No Are you experiencing loss of taste or smell?: No [facility] Anesthesia Checklist Patient Identification Patient Identification: Verbal (Name & ) Structural Data Admitted From: Home Planned Operative Procedure/s: egd Consent for Planned Operative Procedure(s) Verified: Yes NPO Status Verified Time NPO: 00:00 Additional verifications Anesthesia Reactions: No Hx Blood Transfusions: No Blood Transfusion Reaction: No Airway Assessment Mallampati Score:: Class II C-Spine Mobility Assessed: Yes TMJ Mobility Assessed: Yes Dentition: Partials Neurological Assessment Level of Consciousness: Awake, Alert and Appropriate Anesthesia Plan Anesthesia Risk discussed: Yes Anesthesia Plan: Verified ASA Class: II Anesthesia Type: MAC
[2024-11-19] MEDS: TRIAMCINOLONE ACET 40MG/ML VIAL 40 MG IJ (09:56)
[2024-11-19 10:10] VITALS: BP 116/36; PULSE 91; RESP 20; TEMP 36.4; O2SAT 94
[2024-11-19 10:20] VITALS: BP 131/59; PULSE 72; RESP 18; TEMP 36.4; O2SAT 95
[2024-11-19 10:30] VITALS: BP 120/62; PULSE 81; RESP 20; TEMP 36.4; O2SAT 95
[2024-11-19 10:40] VITALS: BP 120/75; PULSE 80; RESP 16; TEMP 36.4; O2SAT 97
--- NOTE | 2024-11-19 10:55 | SUR.PHASEII ---
pt IV was infiltrated upon entering room to give IV zofran. Ok'd by to give ODT. Spoke with manjinder in pharmacy who states ODT zofran was ok to take with milk allergy
[2024-11-19] MEDS: ONDANSETRON 4MG ODT 4 MG SL (11:00)
== END 2024-11-19 11:20 | disposition home or self-care (01) ==
PROVIDERS: PCP Nurse Practitioner Family; Visit Provider Internal Medicine Gastroenterology
PROC: 0DJ08ZZ Inspection of Upper Intestinal Tract, Via Natural or Artificial Opening Endoscopic (ICD-10-PCS; CPT 43249; principal; 2024-11-19 10:00)
DX: K22.2 Esophageal obstruction (principal); K20.80 Other esophagitis without bleeding; Z85.01 Personal history of malignant neoplasm of esophagus; E11.9 Type 2 diabetes mellitus without complications; Z79.84 Long term (current) use of oral hypoglycemic drugs; Z79.899 Other long term (current) drug therapy; Z88.8 Allergy status to other drugs, medicaments and biological substances; Z91.0120 Allergy to eggs, unspecified; Z91.0110 Allergy to milk products, unspecified
CPT/HCPCS: 43249; 82962; C1726; J2003; J2704; J3301; J7120; Q0162

== ENCOUNTER 2024-12-13 08:44 | Outpatient (CLI) | payer MEDICARE, OTHER, SELFPAY ==
--- NOTE | 2024-12-13 08:49 | XR_ITS ---
FINAL REPORT CLINICAL HISTORY: right hip pain no injury, pain x 2 mos COMPARISON: 10/03/2024 FINDINGS: RIGHT HIP Two views of the right hip demonstrate no acute fracture or dislocation. There is advanced joint space narrowing with subchondral sclerosis and osteophytes. There is a well-corticated density noted inferior to the joint space, that may represent a loose body. The visualized bony structures are well aligned. No soft tissue abnormality is seen. IMPRESSION: Advanced changes of osteoarthritis of the right hip. Well-corticated density inferior to the joint space that may represent a loose body. Reviewed, Interpreted and Dictated by Willie Mckeon MD Transcribed by Jemima Garcia Authenticated and . [facility]
== END 2024-12-13 23:59 | disposition home or self-care (01) ==
LOC: RAD 08:44
PROVIDERS: PCP Nurse Practitioner Family; Visit Provider Orthopaedic Surgery
DX: M16.11 Unilateral primary osteoarthritis, right hip (principal); R93.6 Abnormal findings on diagnostic imaging of limbs
CPT/HCPCS: 73502

== ENCOUNTER 2024-12-21 09:47 | Outpatient (CLI) | payer MEDICARE, OTHER, SELFPAY ==
[2024-12-21 11:03] VITALS: BMI 22.6
[2024-12-21 11:39] LABS: Hematocrit 41.1 % (37.0-47.0); Hemoglobin 13.0 g/dL (12.2-16.2); Immature Granulocytes % 0.3 %; Mean Corpuscular HGB Conc 31.6 g/dL (31.8-35.4); Mean Corpuscular Hemoglobin 28.4 pg (27.0-31.2); Mean Corpuscular Volume 89.7 fl (81-99); Nucleated Red Blood Cells % 0 %; Platelet Count 185 K/mm3 (142-424); Red Blood Count 4.58 M/mm3 (4.20-5.40); Red Cell Distribution Width-SD 46.4 fL; White Blood Count 9.7 K/mm3 (4.8-10.8)
[2024-12-21 12:01] LABS: Chloride 101 mmol/L (98-107); Potassium 4.2 mmoL/L (3.5-5.1); Sodium 140 mmol/L (136-145)
[2024-12-21 12:04] LABS: Anion Gap 14.2 mEq/L (5-15); Calcium 9.1 mg/dl (8.4-10.2); Carbon Dioxide 29 mmol/L (22.0-30.0); Glucose 125 mg/dl (74-100)
[2024-12-21 14:40] LABS: Blood Urea Nitrogen 20 mg/dl (7-17); Creatinine Clearance Estimated 48 mL/min (50-200); Creatinine,Serum 0.70 mg/dl (0.52-1.04); Estimated Glomerular Filt Rate 82 ml/min (>60); GFR (African American) 99 ML/MIN (>60)
== END 2024-12-21 23:59 | disposition home or self-care (01) ==
LOC: PREOP 09:48
PROVIDERS: PCP Nurse Practitioner Family; Visit Provider Orthopaedic Surgery
DX: Z01.812 Encounter for preprocedural laboratory examination (principal)
CPT/HCPCS: 80048; 85025

== ENCOUNTER 2024-12-25 06:07 | Day surgery (SDC) | payer MEDICARE, OTHER, SELFPAY ==
[2024-12-21 08:19] VITALS: BMI 22.6
[2024-12-21 11:04] VITALS: BMI 22.6
[2024-12-25 06:30] VITALS: BP 116/56; PULSE 98; RESP 16; TEMP 36.3; O2SAT 97; BMI 22.6
[2024-12-25] MEDS: LACTATED RINGERS 1000ML 1,000 ML 100 ML IV (07:19)
[2024-12-25] MEDS: TRIAMCINOLONE ACET 40MG/ML VIAL 80 MG (07:31)
[2024-12-25] MEDS: LIDOCAINE 1% 10ML MDV 10 ML (07:32)
[2024-12-25 07:37] VITALS: BP 90/48; PULSE 85; RESP 14; TEMP 36.4; O2SAT 91
--- NOTE | 2024-12-25 07:40 | XR_ITS ---
FINAL REPORT CLINICAL HISTORY: hip injection in OR 0.69 dap 0.05 fluouo time FINDINGS: FLUOROSCOPY LESS THAN 1 HOUR HISTORY: Right hip injection FINDINGS: Fluoroscopic guidance was provided for right hip injection. A single spot film was obtained. 0.05 minutes of fluoroscopy time were used, with a dosage of 0.69 mGy. IMPRESSION: As above. Reviewed, Interpreted and Dictated by Michael Pagan MD Transcribed by Jemima Garcia Authenticated and [facility]
--- NOTE | 2024-12-25 07:41 | P.PNANES_ITS ---
[facility] Disclaimer: The information contained in this section may have been updated after the patient was seen, as this information can be updated by other users. Medical History Impacted cerumen, left ear Viral illness Left otitis media Lesion of left ear UTI (urinary tract infection) Abdominal pain Encounter for diagnostic endoscopy History of radiation therapy Postmenopausal bleeding Wrist fracture, right Diabetes Migraine History of throat cancer Surgical History History of surgery Hx laparoscopic cholecystectomy Hx of esophagogastroduodenoscopy Hx of right BKA History of hand surgery web fingers seperated Family History Other Family history of cancer Family history of diabetes mellitus type II Family history of hypothyroidism Family history of stroke Social History (Updated 12/25/24 @ 06:30 by Luisa Hatfield RN) Smoking Status: Never smoker second hand exposure: No alcohol intake: never substance use type: denies use current occupational status: retired and disabled Travel in the last 8 weeks?: None adopted: No caregiver/support person: No foster care: No household members: none housing: house lives independently: Yes marital status: single education level: high school service: No [facility]: No current occupation: Retired current occupational exposures/hazards: No caffeine: No special rey needs: No agree to transfusion: No do you feel safe at home: Yes victim of physical abuse: No victim of emotional abuse: No victim of sexual abuse: No would you like helpful sources: No Have you lived/traveled outside US in past 30 days?: No Contact w/someone who lives/traveled outside US past 30 days?: No Exposure to someone with infectious disease in past 14 days?: No Do you have a fever (greater than 100.4 F or 38 C)?: No Have you tested positive for COVID-19?: No Exposed to someone with COVID-19 in past 14 days?: No Do you have a sore throat?: No Do you have a cough?: No Do you have any weakness?: No Are you experiencing any nausea/vomitting?: No Do you have any diarrhea?: No Are you experiencing any unusual bleeding?: No Do you have any muscle aches/pain?: No Do you have any abdominal pain?: No Are you experiencing loss of taste or smell?: No [facility] Anesthesia Checklist Patient Identification Patient Identification: Arm Band and Verbal (Name & ) Structural Data Admitted From: Home Planned Operative Procedure/s: R hip injection Consent for Planned Operative Procedure(s) Verified: Yes Verified Documents: Surgical Consent NPO Status Verified Time NPO: 00:00 Chart Verification Results Verified: None Additional verifications Fingerstick Blood Glucose: 93 Anesthesia Reactions: No Hx Blood Transfusions: No Blood Transfusion Reaction: No Airway Assessment Mallampati Score:: Class II C-Spine Mobility Assessed: Yes TMJ Mobility Assessed: Yes Dentition: Good Dentition Neurological Assessment Level of Consciousness: Awake, Alert and Appropriate Hx Seizures: No Numbness or tingling in extremities: No Anesthesia Plan Anesthesia Risk discussed: Yes Anesthesia Plan: Verified ASA Class: III Anesthesia Type: MAC
[2024-12-25 07:52] VITALS: BP 113/59; PULSE 88; RESP 16; TEMP 36.4; O2SAT 94
--- NOTE | 2024-12-25 07:52 | P.OP_ITS ---
Date of procedure: 12/25/24 Pre-op Diagnosis:: Right hip osteoarthritis Post-op Diagnosis:: Same Procedure performed:: Right hip injection with arthrogram x-ray guidance for needle placement Surgeon:: Matt Rangel DO DITCH TENDER:: Raymundo Ontiveros Anesthesia: MAC and LMA Estimated blood loss (mL): 0 Operative findings:: Severe end-stage osteoarthritis right hip Operative note:: Patient identified preoperatively. Right hip marked with yes my initials. Transported operative suite placed upon operating bed given sedation right hip prepped and draped in normal sterile fashion. Once prepped and draped final operative timeout performed to identify proper patient procedure and extremity. Everyone involved in the case agreed. There is no counter indication beginning. Right hip was identified on the x-ray 18-gauge spinal needle was directed with the proper trajectory into the hip capsule under direct visualization of the x- ray. Once within the hip capsule arthrogram was performed to confirm needle placement within the hip capsule. Once confirmed injection of 80 mg Kenalog 3 cc 1% lidocaine injected to the hip capsule needle removed Band-Aid placed patient tolerated procedure well without complication. Patient waken of sedation taken recovery in stable condition Condition: stable Disposition: PACU Complications:: None apparent
[2024-12-25 08:07] VITALS: BP 115/57; PULSE 80; RESP 18; TEMP 36.4; O2SAT 97
[2024-12-25 08:49] LABS: POC Glucose,Bedside 94 gm/dL (70-110)
== END 2024-12-25 08:07 | disposition home or self-care (01) ==
PROVIDERS: PCP Nurse Practitioner Family; Visit Provider Orthopaedic Surgery
PROC: 3E0U3GC Introduction of Other Therapeutic Substance into Joints, Percutaneous Approach (ICD-10-PCS; CPT 20610; principal; 2024-12-25 07:30)
DX: G89.29 Other chronic pain (principal); M25.551 Pain in right hip; M16.11 Unilateral primary osteoarthritis, right hip; E11.9 Type 2 diabetes mellitus without complications; M25.851 Other specified joint disorders, right hip; Z97.13 Presence of artificial right leg (complete) (partial); Z79.84 Long term (current) use of oral hypoglycemic drugs; Z79.899 Other long term (current) drug therapy; Z88.8 Allergy status to other drugs, medicaments and biological substances; Z91.0120 Allergy to eggs, unspecified; Z91.0110 Allergy to milk products, unspecified
CPT/HCPCS: 20610; 73502; 76000; 82962; J2003; J2704; J3010; J3301; J7120

== ENCOUNTER 2024-12-27 00:21 | Emergency (ER) | payer MEDICARE, OTHER, SELFPAY ==
[2024-12-27] VITALS (16 sets, daily range): BP systolic 112–131; BP diastolic 47–89; PULSE 67–103; RESP 13–18; TEMP 36.7–37.2; O2SAT 94–99; BMI 21.6
--- NOTE | 2024-12-27 00:30 | CT_ITS ---
PROCEDURE INFORMATION: Exam: CTA Abdomen and Pelvis With Contrast Exam date and time: 12/27/2024 1:57 AM Age: 74 years old Clinical indication: Abdominal pain; Acute; Additional info: Low abd pain llq, progressive, out of proportion TECHNIQUE: Imaging protocol: Computed tomographic angiography of the abdomen and pelvis with contrast. Exam focused on the arteries. 3D rendering (Not supervised by radiologist): MIP and/or 3D reconstructed images were created by the technologist. Radiation optimization: All CT scans at this facility use at least one of these dose optimization techniques: automated exposure control; mA and/or kV adjustment per patient size (includes targeted exams where dose is matched to clinical indication); or iterative reconstruction. Contrast material: ISOVUE; Contrast volume: 80 ml; Contrast route: INTRAVENOUS (IV); COMPARISON: CT ABDOMEN PELVIS W CON 11/17/2023 12:31 PM FINDINGS: Diaphragm: Moderate-sized hiatal hernia. Aorta: No aortic aneurysm. No aortic dissection. Celiac and mesenteric arteries: No occlusion or significant stenosis. Renal arteries: No occlusion or significant stenosis. Right iliac arteries: No occlusion or significant stenosis. Left iliac arteries: No occlusion or significant stenosis. Liver: No mass. Gallbladder and biliary ducts: Gallbladder is not visualized and may be surgically absent. Pancreas: Unremarkable. No mass. No ductal dilation. Spleen: Unremarkable. No splenomegaly. Adrenal glands: Unremarkable. No mass. Kidneys and ureters: Moderate left hydronephrosis and hydroureter as a consequence of multiple left ureteral stones 1 mm, 3 mm, and 8 mm, all within the left ureter above the level of the pelvic brim. Stomach and bowel: Unremarkable. No obstruction. No mucosal thickening. Appendix: No evidence of appendicitis. Intraperitoneal space: Unremarkable. No free air. No significant fluid collection. Lymph nodes: Unremarkable. No enlarged lymph nodes. Urinary bladder: Unremarkable. No mass. Reproductive: Unremarkable as visualized. Bones/joints: No acute fracture. Soft tissues: Unremarkable. IMPRESSION: Moderate left hydronephrosis and hydroureter as a consequence of multiple left ureteral stones 1 mm, 3 mm, and 8 mm, all within the left ureter above the level of the pelvic brim.
[2024-12-27] MEDS: MORPHINE 4MG/ML SYRINGE 2 MG IV (00:42)
[2024-12-27] MEDS: ONDANSETRON 4MG/2ML VIAL 4 MG IV ×2 (00:43→02:06)
--- NOTE | 2024-12-27 00:51 | HMH.EDGENADL ---
Discharge Plan Disposition Patient Disposition: Xfer Short-Term Hosp Condition: Fair Prescriptions Prescriptions: No Action ergocalciferol (vitamin D2) [Vitamin D2] 1,250 mcg (50,000 unit) capsule 1,250 mcg PO WEEKLY metformin 500 mg tablet extended release 24 hr 500 mg PO DAILY nystatin 100,000 unit/gram cream 1 applic topical TID Qty: 30 5RF diclofenac sodium [Voltaren Arthritis Pain] 1 % gel 2 g topical QID Qty: 50 2RF Rx Instructions: apply to single elbow, wrist or hand; for hand includes palm/fingers/back of hand clobetasol 0.05 % cream 1 applic topical NEEDED PRN (Reason: Skin Irritation) docusate sodium [Stool Softener] 100 mg tablet 200 mg PO DAILY Centrum Silver Women 8 mg iron-400 mcg-50 mcg tablet 1 tab PO DAILY PreserVision AREDS-2 250-90-40-1 mg capsule 1 tab PO BID Citrucel 500 mg tablet 500 mg PO DAILY rosuvastatin 20 mg tablet 20 mg PO QHS Qty: 90 3RF mupirocin 2 % ointment 1 applic topical DAILY Qty: 22 2RF ondansetron 4 mg tablet,disintegrating 4 mg PO Q8HP PRN (Reason: Nausea) lidocaine 4 % adhesive patch,medicated 1 patch TOPICAL DAILY esomeprazole magnesium [Nexium] 40 mg capsule,delayed release(DR/EC) See Rx Instructions .ROUTE .COMPLEX Rx Instructions: TAKE 1 CAPSULE BY MOUTH TWICE DAILY metoclopramide HCl [Reglan] 10 mg tablet 10 mg PO ACHS Referrals Follow up/Referrals: Tori Mortensen APRN [Primary Care Provider, Family Practice] - See instructions Clinical Impressions Clinical Impression: Calculus of left ureter, Hydronephrosis, KARI (acute kidney injury) Instructions Patient Instructions: DI for Acute Abdominal Pain Print Language Print Language: Kinyarwanda Discharge ED Provider: Judith Espinal Adult HPI General Chief complaint: Abdominal Pain Stated complaint: abd, back pain, nausea, vomiting Time Seen by Provider: 12/27/24 00:25 Mode of Arrival: Ambulatory Source of Information: Patient and Spouse Description of Symptoms (Recalled from ER Triage Doc. by RN): Patient states she has had posterior right mid back pain since 1600 which is chronic. States the pain radiated to her right lower quadrant, and then to her generalized stomach. States she is also having nausea from the pain. Denies problems urinating. History of Present Illness HPI narrative: 74-year-old female with history of esophageal stricture, esophageal cancer, dysphagia, hyperlipidemia, right AKA, GERD, diabetes not on insulin presents to the ER complaining of left lower quadrant abdominal pain radiating to the midline, nausea and multiple episodes of nonbilious, nonbloody emesis. She also states she is having back pain but states this is chronic and unchanged from baseline. She denies any dysuria or hematuria. Denies fevers or chills. Denies chest pain or difficulty breathing. Patient demonstrates that the pain started in the left lower quadrant and migrated towards the suprapubic area and then migrated superiorly indicating towards the area of the umbilicus. Reports her last bowel movement was yesterday and normal. She does have a history of abdominal surgeries. No recent illness. No other complaints or concerns. Related Data Home Medications ?Medication ?Instructions ?Recorded ?Confirmed lidocaine 4 % topical patch 1 patch topical DAILY 11/14/23 12/25/24 ondansetron 4 mg disintegrating 4 mg PO Q8HP PRN Nausea 11/17/23 12/25/24 tablet clobetasol 0.05 % topical cream 1 applic topical NEEDED PRN 05/31/24 12/25/24 Skin Irritation docusate sodium 100 mg tablet 200 mg PO DAILY 05/31/24 12/25/24 (Stool Softener) [id number] 8 mg-folic 400 1 tab PO DAILY 05/31/24 12/25/24 mcg-K 50 mcg-lutein 300 mcg tablet (Centrum Silver Women) vit C 250 mg-vit E 90 mg-zinc 40 1 tab PO BID 05/31/24 12/25/24 mg-copper 1 [id number] capsule (PreserVision AREDS-2) ergocalciferol (vitamin D2) 1,250 1,250 mcg PO WEEKLY 08/15/24 12/25/24 mcg (50,000 unit) capsule (Vitamin D2) metformin 500 mg tablet,extended 500 mg PO DAILY 08/15/24 12/25/24 release 24 hr methylcellulose (laxative) 500 mg 500 mg PO DAILY 09/20/24 12/25/24 tablet (Citrucel) esomeprazole magnesium 40 mg See Rx Instructions .Route .COMPLEX 12/21/24 12/25/24 capsule,delayed release (Nexium) metoclopramide HCl 10 mg tablet 10 mg PO ACHS 12/21/24 12/25/24 (Reglan) Previous Rx's ?Medication ?Instructions ?Recorded rosuvastatin 20 mg tablet 20 mg PO QHS #90 tabs 06/01/24 mupirocin 2 % topical ointment 1 applic topical DAILY #22 grams 06/14/24 nystatin 100,000 unit/gram topical 1 applic topical TID #30 grams 08/15/24 cream diclofenac sodium 1 % topical gel 2 g topical QID OA #50 grams 10/03/24 (Voltaren Arthritis Pain) Allergies Allergy/AdvReac Type Severity Reaction Status Date / Time milk Allergy Mild Vomiting Verified 12/25/24 06:40 promethazine (From Phenergan) Allergy Mild whole body Verified 12/25/24 06:40 aches egg AdvReac Severe Vomiting Verified 12/25/24 06:40 PFSH PFSH Disclaimer: The information contained in this section may have been updated after the patient was seen, as this information can be updated by other users. Medical History Impacted cerumen, left ear Viral illness Left otitis media Lesion of left ear UTI (urinary tract infection) Abdominal pain Encounter for diagnostic endoscopy History of radiation therapy Postmenopausal bleeding Wrist fracture, right Diabetes Migraine History of throat cancer Surgical History History of surgery Hx laparoscopic cholecystectomy Hx of esophagogastroduodenoscopy Hx of right BKA History of hand surgery web fingers seperated Family History Other Family history of cancer Family history of diabetes mellitus type II Family history of hypothyroidism Family history of stroke Social History (Updated 12/25/24 @ 06:30 by Luisa Hatfield RN) Smoking Status: Never smoker second hand exposure: No alcohol intake: never substance use type: denies use current occupational status: retired and disabled Travel in the last 8 weeks?: None adopted: No caregiver/support person: No foster care: No household members: none housing: house lives independently: Yes marital status: single education level: high school service: No skilled nursing: No current occupation: Retired current occupational exposures/hazards: No caffeine: No special rey needs: No agree to transfusion: No do you feel safe at home: Yes victim of physical abuse: No victim of emotional abuse: No victim of sexual abuse: No would you like helpful sources: No Have you lived/traveled outside [place] in past 30 days?: No Contact w/someone who lives/traveled outside US past 30 days?: No Exposure to someone with infectious disease in past 14 days?: No Do you have a fever (greater than 100.4 F or 38 C)?: No Have you tested positive for COVID-19?: No Exposed to someone with COVID-19 in past 14 days?: No Do you have a sore throat?: No Do you have a cough?: No Do you have any weakness?: No Do you have any diarrhea?: No Are you experiencing any unusual bleeding?: No Do you have any muscle aches/pain?: No Do you have any abdominal pain?: Yes Are you experiencing loss of taste or smell?: No Other Medical History Have you received the Flu Vaccine for this season: No Have you received the Pneumonia Vaccine: No ROS Obtained: Yes Systems reviewed as appropriate & no additional complaints except as documented Per HPI Physical Exam General General appearance: alert and in no apparent distress Head Head exam: atraumatic and normocephalic Eye Eye exam: Present PERRL and EOMI ENT ENT exam: Present mucous membranes moist Neck Neck exam: Present normal inspection and full ROM Chest Chest inspection: Present symmetric chest wall rise Respiratory Respiratory exam: Present normal lung sounds bilaterally; Absent respiratory distress, wheezes or stridor Cardiovascular Cardiovascular exam: Present regular rate and normal rhythm Abdominal Exam Abdominal exam: Present soft and tenderness (Left lower quadrant, suprapubic area); Absent distention, guarding, rebound or rigidity Extremities Exam Extremities exam: Present full ROM and normal capillary refill; Absent edema Back Exam Back exam: Present tenderness (Diffuse, no focal tenderness, no specific CVA tenderness, no evidence of traumatic injury, patient reports chronic discomfort throughout the back) Neurological Exam Neurological exam: Present alert and oriented X3; Absent motor sensory deficit Psychiatric Psychiatric exam: Present normal affect and normal mood Skin Skin exam: Present warm and dry Medical Decision Making Medical Records Medical records reviewed: Yes I reviewed the patient's medical records. Screening: Per USPSTF and CDC recommendations, given the prevalence of disease in our region, it is our hospital?s policy to screen for HIV and viral Hepatitis for all patients aged 18 and over and those with ongoing risk factors. 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 Kenalog injected into the stricture. 12/25/2024 patient had right hip injection with arthrogram performed by Dr. Rangel. 80 mg of Kenalog was injected into the right hip capsule. Tolerated procedure without complication. Sukhdeep Inquiry Pt receiving controlled substance: No Vital Signs: 12/27/24 00:29 12/27/24 00:38 12/27/24 02:31 Temperature 98.9 F 98.9 F Temperature Source Oral Oral Pulse Rate 69 103 H Pulse Rate [Left] 71 Respiratory Rate 18 18 Blood Pressure 117/89 126/88 Blood Pressure [Right Arm] 117/89 Blood Pressure Mean 94 Blood Pressure Mean [Right Arm] 98 02 Sat by Pulse Oximetry 98 98 94 L Oxygen Delivery Method Room Air 12/27/24 03:24 12/27/24 03:30 12/27/24 04:00 Temperature Temperature Source Pulse Rate 68 84 80 Pulse Rate [Left] Respiratory Rate Blood Pressure 127/51 L 131/51 L 124/54 L Blood Pressure [Right Arm] Blood Pressure Mean 76 84 87 Blood Pressure Mean [Right Arm] 02 Sat by Pulse Oximetry 98 99 96 Oxygen Delivery Method 12/27/24 04:30 12/27/24 05:00 12/27/24 05:30 Temperature Temperature Source Pulse Rate 73 73 67 Pulse Rate [Left] Respiratory Rate Blood Pressure 131/52 L 129/54 L 121/49 L Blood Pressure [Right Arm] Blood Pressure Mean 78 71 73 Blood Pressure Mean [Right Arm] 02 Sat by Pulse Oximetry 96 97 96 Oxygen Delivery Method 12/27/24 06:00 Temperature Temperature Source Pulse Rate 71 Pulse Rate [Left] Respiratory Rate Blood Pressure 118/48 L Blood Pressure [Right Arm] Blood Pressure Mean 68 Blood Pressure Mean [Right Arm] 02 Sat by Pulse Oximetry 98 Oxygen Delivery Method Lab Data Lab Results 12/27/24 00:46: PT 11.4, INR 1.03, APTT 17.4 L, Sodium 137, Potassium 4.4, Chloride 100, Carbon Dioxide 27, Anion Gap 14.4, BUN 35 H, Creatinine 1.10 H, Estimated Creat Clear 42, Estimated GFR 49 L, Est GFR ( Amer) 59, Glucose 141 H, Lactate 2.8 H, Calcium 9.9, Total Bilirubin 0.7, AST 38 H, ALT 28, Alkaline Phosphatase 62, Troponin I 0.03, Total Protein 8.3 H, Albumin 4.4, Globulin 3.9 H, Albumin/Globulin Ratio 1.1, Lipase 69 12/27/24 02:12: WBC 16.0 H, RBC 4.54, Hgb 12.8, Hct 41.0, MCV 90.3, MCH 28.2, MCHC 31.2 L, RDW 13.8, Plt Count 208, MPV 10.3, Neut % (Auto) 82.6 H, Lymph % (Auto) 11.0, [place] % (Auto) 5.9, Eos % (Auto) 0.0 L, Baso % (Auto) 0.1, Neut # (Auto) 13.3 H, Lymph # (Auto) 1.8, [place] # (Auto) 0.9, Eos # (Auto) 0.0, Baso # (Auto) 0.0 12/27/24 03:07: Urine Color Yellow, Urine Appearance Clear, Urine pH 6.0, Ur Specific Brickeys 1.020, Urine Protein Trace, Urine Glucose (UA) Negative, Urine Ketones 1+, Urine Blood 3+ A, Urine Nitrate Negative, Urine Bilirubin Negative, Urine Urobilinogen 0.2, Ur Leukocyte Esterase Negative, Urine RBC 50-100, Urine WBC Occasional, Ur Squamous Epith Cells Occasional 12/27/24 03:45: Troponin I 0.02 12/27/24 02:12 12/27/24 00:46 Orders (Tests/Meds): ED MEDICATIONS Generic Name Dose Route Start Last Admin Trade Name Freq PRN Reason Stop Dose Admin Lactated Ringer's 1,000 mls @ 125 mls/hr 12/27/24 04:00 12/27/24 04:05 Lactated Ringer's 1000 Ml Bag IV 01/26/25 03:59 125 mls/hr .Q8H YOSEF Administration Morphine Sulfate 2 mg 12/27/24 03:55 Morphine 2mg/Ml Syringe IV 01/26/25 03:54 Q2H PRN Severe Pain (7-10) Discontinued Medications Generic Name Dose Route Start Last Admin Trade Name Cari PRN Reason Stop Dose Admin Lactated Ringer's 500 mls @ 999 mls/hr 12/27/24 00:32 12/27/24 03:35 Lactated Ringer's 500ml IV 12/27/24 01:02 Infused .Q31M ONE Infusion Iopamidol 80 ml 12/27/24 02:05 12/27/24 02:06 Iopamidol-370 (76%);100ml Bottle IV 12/27/24 02:06 80 ml ONCE ONE Administration Metoclopramide HCl 5 mg 12/27/24 02:36 12/27/24 02:46 Metoclopramide Hcl 10mg/2ml Vial IVP 12/27/24 02:37 5 mg ONCE ONE Administration Morphine Sulfate 2 mg 12/27/24 00:30 12/27/24 00:42 Morphine 4mg/Ml Syringe IV 12/27/24 00:31 2 mg ONCE ONE Administration Morphine Sulfate 2 mg 12/27/24 02:04 12/27/24 02:07 Morphine 2mg/Ml Syringe IV 12/27/24 02:05 2 mg ONCE ONE Administration Morphine Sulfate 4 mg 12/27/24 02:36 12/27/24 02:46 Morphine 4mg/Ml Syringe IV 12/27/24 02:37 4 mg ONCE ONE Administration Ondansetron HCl 4 mg 12/27/24 00:30 12/27/24 00:43 Ondansetron 4mg/2ml Vial IV 12/27/24 00:31 4 mg ONCE ONE Administration Ondansetron HCl 4 mg 12/27/24 02:04 12/27/24 02:06 Ondansetron 4mg/2ml Vial IV 12/27/24 02:05 4 mg ONCE ONE Administration Sodium Chloride 50 ml 12/27/24 02:05 12/27/24 02:06 0.9 % Sodium Chloride 50 Ml Vial IV 12/27/24 02:06 50 ml ONCE ONE Administration Sodium Chloride 10 ml 12/27/24 02:05 12/27/24 02:06 Sodium Chloride 0.9% 10ml Syr (Rad Only) IV 12/27/24 02:06 10 ml ONCE ONE Administration ORDERS Category Date Time Status CT angio abdomen pelvis Stat Cat Scan 12/27/24 00:30 Completed Activated Partial Thrombo Time Stat Lab 12/27/24 00:46 Completed Complete Blood Count Auto Diff Stat Lab 12/27/24 02:12 Completed Comprehensive Metabolic Panel Stat Lab 12/27/24 00:46 Completed Lactic Acid Stat Lab 12/27/24 00:46 Completed Lipase Stat Lab 12/27/24 00:46 Completed Prothrombin Time INR Stat Lab 12/27/24 00:46 Completed Troponin I Q3H Lab 12/27/24 03:45 Completed Troponin I Q3H Lab 12/27/24 06:45 Ordered Troponin I Stat Lab 12/27/24 00:46 Completed Urinalysis and Microscopic Stat Lab 12/27/24 03:07 Completed Medical Decision Narrative: In summary, this 74-year-old female with comorbidities described in the HPI presents to the emergency department today with left lower quadrant, suprapubic, periumbilical abdominal pain with nausea and vomiting, chronic back pain which is at baseline. On initial evaluation patient is hemodynamically stable, afebrile, mild abdominal discomfort with palpation in the left lower quadrant, suprapubic, and periumbilical area with no rebound or guarding, no peritonitic findings, cardiopulmonary exam benign, brisk capillary refill, GCS 15. Differential diagnosis includes but is not limited to viral syndrome, colitis, enteritis, with history of esophageal adenocarcinoma I did consider the possibility of malignancy, also considered obstruction, urinary tract infection, kidney stone, electrolyte abnormality, dehydration, I did consider the possibility of mesenteric ischemia as well as diverticulitis and the possibility of atypical presentation of ACS though I suspect this to be less likely. Based on these concerns, I ordered hematologic and serum labs, CT angiography, urine studies, cardiac workup. ECG personally interpreted demonstrates sinus bradycardia, rate 56, normal PA and QTc, no STEMI. Patient received IV fluids, Zofran, low-dose morphine initially for treatment. Labs personally reviewed demonstrate leukocytosis WBC 16.0, no anemia, normal platelets, PT/INR normal, CMP demonstrates KARI creatinine is 1.1 today with a baseline of 0.7. GFR is 49, 5 days ago it was 82 So this represents a significant decrease. Lactate was also elevated at 2.8. Patient is receiving IV fluids. Initial troponin 0.03 but patient has nonischemic ECG. Repeat troponin pending. Lipase normal at 69. UA pending. CT abdomen pelvis personally interpreted does not demonstrate bowel obstruction or mesenteric ischemia. Patient does have left ureteral stones and hydronephrosis. See radiology read for final interpretation which comments that the ureteral stones are 1 mm, 3 mm, and 8 mm. Patient has received multiple doses of morphine and Zofran. She is also receiving Reglan for nausea since she has allergy to Phenergan. Patient has a right AKA and reported it would be very difficult for her to get to the bathroom and get off her multiple layers of pants to use the restroom so straight cath was performed to collect a urinalysis. Because of multiple left stones causing hydronephrosis with evidence of kidney dysfunction, leukocytosis, lactic acidosis, I believe the patient requires transfer to higher level of care for interventional urology. After discussion with patient and family they are agreeable to this patient would prefer to initially reach out to [facility]. We reached out to their facility and I spoke with Dr. Gray with urology about this case. He agrees the patient is appropriate for transfer and requested she be sent to [facility]. Awaiting a callback from the hospitalist at this time. Dr. Dunn with the hospitalist team called back and I discussed this case with him. UA has resulted and is negative for findings of infection so we discussed this as well. He graciously accepted this patient for transfer to [facility]. Awaiting a bed assignment. [facility] called back and reported they will have a bed available after 7 AM. This is 3 hours from now and our agreement with the hospitalist service and facility policy is to keep patients in the ER at that are awaiting beds at outside facility for up to 4 hours. If they do not have bed availability after 7 AM like they expect they will, then the patient can be admitted to the hospitalist here. In the meantime she will remain in the ER until transfer. As needed morphine is available and patient is receiving maintenance fluids and remains NPO. Repeat troponin 0.02. Nonactionable. Patient remained stable and comfortable. Still awaiting bed assignment. Britt handed off to Dr. Guzman in stable condition at 7AM for final disposition. Critical Care Critical Care Time Critical Care Time: No
[2024-12-27] MEDS: RINGERS SOLUTION,LACTATED 500 ML 999 ML IV (00:53)
--- NOTE | 2024-12-27 01:04 | ECG_ITS ---
APPROVED REPORT Exam: Resting ECG HR:56 bpm ECG Measurements Heart Rate 56 AXES WV 168 P 91 QRSd 98 QRS -66 QT 401 T -33 QTc 393 Conclusion SINUS BRADYCARDIA WITH SINUS ARRHYTHMIA PATTERN CONSISTENT WITH PULMONARY DISEASE POSSIBLE RIGHT VENTRICULAR CONDUCTION DELAY [RSR (QR) IN V1/V2] No STEMI Electronically signed by : ABDULKADIR NERI, 12/27/2024 03:03:58
[2024-12-27 01:11] LABS: Alanine Aminotransferase 28 U/L (12-78); Albumin Level 4.4 g/dl (3.5-5.0); Albumin/Globulin Ratio 1.1 (1.1-1.8); Alkaline Phosphatase 62 U/L (38-126); Anion Gap 14.4 mEq/L (5-15); Aspartate Amino Transferase 38 U/L (14-36); Bilirubin,Total 0.7 mg/dl (0.2-1.3); Blood Urea Nitrogen 35 mg/dl (7-17); Calcium 9.9 mg/dl (8.4-10.2); Carbon Dioxide 27 mmol/L (22.0-30.0); Chloride 100 mmol/L (98-107); Creatinine Clearance Estimated 42 mL/min (50-200); Creatinine,Serum 1.10 mg/dl (0.52-1.04); Estimated Glomerular Filt Rate 49 ml/min (>60); GFR (African American) 59 ML/MIN (>60); Globulin 3.9 g/dL (1.3-3.2); Glucose 141 mg/dl (74-100); Lipase 69 U/L (23-300); Potassium 4.4 mmoL/L (3.5-5.1); Sodium 137 mmol/L (136-145); Total Protein,Serum 8.3 g/dl (6.3-8.2)
[2024-12-27 01:21] LABS: INR 1.03 (0.9-1.1); Prothrombin Time 11.4 seconds (10.1-12.5)
[2024-12-27 01:22] LABS: Troponin I 0.03 ng/ml (0.00-0.034)
[2024-12-27 01:33] LABS: Activated Partial Thrombo Time 17.4 seconds (22.8-30.6)
[2024-12-27] MEDS: IOPAMIDOL-370 (76%);100ML BOTTLE 80 ML IV (02:06)
[2024-12-27] MEDS: 0.9 % SODIUM CHLORIDE 50 ML VIAL IV (02:06)
[2024-12-27] MEDS: SODIUM CHLORIDE 0.9% 10ML SYR (RAD ONLY) 10 ML IV (02:06)
[2024-12-27] MEDS: MORPHINE 2MG/ML SYRINGE 2 MG IV (02:07)
[2024-12-27 02:20] LABS: Hematocrit 41.0 % (37.0-47.0); Hemoglobin 12.8 g/dL (12.2-16.2); Immature Granulocytes % 0.4 %; Mean Corpuscular HGB Conc 31.2 g/dL (31.8-35.4); Mean Corpuscular Hemoglobin 28.2 pg (27.0-31.2); Mean Corpuscular Volume 90.3 fl (81-99); Nucleated Red Blood Cells % 0 %; Platelet Count 208 K/mm3 (142-424); Red Blood Count 4.54 M/mm3 (4.20-5.40); Red Cell Distribution Width-SD 46.1 fL; White Blood Count 16.0 K/mm3 (4.8-10.8)
[2024-12-27] MEDS: MORPHINE 4MG/ML SYRINGE 4 MG IV (02:46)
[2024-12-27] MEDS: METOCLOPRAMIDE HCL 10MG/2ML VIAL 5 MG IVP (02:46)
[2024-12-27 03:11] LABS: Microscopic, Urine URINE MICROSCOPIC (MICROSCOPIC)
[2024-12-27 03:23] LABS: Bilirubin,Urine Negative (Negative); Color,Urine YELLOW (Yellow); Glucose,Urine (UA) Negative (Negative); Ketones,Urine 1+ (Negative); Leukocyte Esterase,Urine Negative (Negative); PH,Urine 6.0 (5.0-8.5); Protein,Urine TRACE (Negative); Specific Gravity, Urine 1.020 (1.005-1.030); Urobilinogen,Urine 0.2 EU/dl (0.2)
[2024-12-27 03:30] LABS: RBC,Urine 50-100 #/hpf (0-3); Squamous Epithelial Cell,Urine Occasional #/hpf (0-5); WBC,Urine Occasional #/hpf (0-3)
[2024-12-27] MEDS: LACTATED RINGERS 1000ML 1,000 ML 125 ML IV (04:05)
[2024-12-27 04:11] LABS: Troponin I 0.02 ng/ml (0.00-0.034)
--- NOTE | 2024-12-27 04:20 | PC.NURSE ---
Please call sister (Holli Mohan) [phone] and friend (Marie Guzman) [phone] when pt is transferred
--- NOTE | 2024-12-27 07:46 | PC.NURSE ---
report called to [facility] at [phone]
--- NOTE | 2024-12-27 07:46 | PC.NURSE ---
ems called for pt transfer to [facility] for interventional urology.
--- NOTE | 2024-12-27 07:51 | PC.NURSE ---
attempted to call sister to notify of pt transfer. no answer. call made to pts friend lsited in chart, friend answered and stated that she would inform pts sister of transfer.
== END 2024-12-27 09:16 | disposition short-term general hospital (02) ==
PROVIDERS: Emergency Provider Emergency Medicine; PCP Nurse Practitioner Family
DX: N17.9 Acute kidney failure, unspecified (principal); R10.32 Left lower quadrant pain; N13.39 Other hydronephrosis; E78.5 Hyperlipidemia, unspecified; K21.9 Gastro-esophageal reflux disease without esophagitis
CPT/HCPCS: 74174; 80053; 81001; 83605; 83690; 84484; 85025; 85610; 85730; 93005; 96365; 96366; 96375; 96376; 99285; J2270; J2405; J2765; J7120; Q9967